=== PATIENT | female | born 1965 | race Caucasian/White ===

== ENCOUNTER → 2017-07-09 08:18 | Outpatient (CLI) | payer OTHER, SELFPAY ==
[2017-07-09] VITALS (8 sets, daily range): BP systolic 110–135; BP diastolic 53–83; PULSE 54–96; RESP 16–18; TEMP 36.2–36.8; O2SAT 91–100; BMI 35.5
[2017-07-09] MEDS: DiphenhydrAMINE 50 MG/ML Syringe IV (08:40)
[2017-07-09] MEDS: Hydrocortisone Sod Succinate 100 MG/2 ML Vial IV (08:42)
== END ==
PROVIDERS: Visit Provider Internal Medicine Rheumatology
DX: M33.90 Dermatopolymyositis, unspecified, organ involvement unspecified (principal)
CPT/HCPCS: 96365; 96366 ×5; 96375 ×2; J7040; A4216; J1568

== ENCOUNTER → 2017-07-28 10:31 | Outpatient (CLI) | payer OTHER, SELFPAY ==
[2017-07-28 11:16] LABS: Absolute Neutrophil Count 3.7 X10^3/uL (2.0-7.7); Basophil# 0.02 X10^3/uL; Basophil% 0.4 % (0-1); Eosinophil# 0.08 X10^3/uL; Eosinophils% 1.5 % (0-5); Hematocrit 41.8 % (37-47); Hemoglobin 14.1 g/dl (12.0-15.0); Lymphocyte % 23.7 % (19-41); Mean Corp Hgb Conc 33.7 g/gl (32-36); Mean Corpuscular Hgb 30.5 pg (27.0-32.0); Mean Corpuscular Volume 90.5 fL (81-99); Mean Platelet Vol. 8.7 fl (6.2-12.0); Monocyte# 0.41 X10^3/uL; Monocyte% 7.5 % (0-10); Neutrophil # 3.67 X10^3/uL (2.7-7.7); Neutrophil % 66.7 % (47-70); Platelet Count 235 K/mm3 (150-450); RBC Distribution Width CV 13.4 % (11.6-14.6); RBC Distribution Width SD 43.6 fl (35.1-43.9); Red Blood Count 4.62 M/mm3 (4.2-5.4); White Blood Count 5.5 K/mm3 (4.4-11.0)
[2017-07-28 11:18] LABS: POSITIVE COUNT NO; POSITIVE DIFFERENTIAL NO; POSITIVE MORPHOLOGY NO
[2017-07-28 11:48] LABS: ALB/GLOB Ratio 1.1 RATIO (0.9-2.4); AST(SGOT) 40 U/L (15-37); Alanine Aminotransfer ALT/SGPT 53 U/L (13-56); Albumin, Serum 4.1 g/dL (3.2-5.0); Alkaline Phosphatase 72 U/L (45-117); Anion Gap 8 (5-15); BUN 19 mg/dL (7-18); BUN/Creat Ratio 17.6 RATIO (10-20); CPK Total, Creatine Kinase 201 U/L (26-192); Calcium,Total 8.9 mg/dL (8.5-10.1); Chloride 102 mmol/L (98-107); Creatinine, Serum 1.08 mg/dL (0.55-1.02); EST Glomerular Filtration Rate 56 mL/min (>60); Est Glom Filt Rate - Afr Amer 68 mL/min (>60); Globulin 3.8 g/dL (2.2-4.2); Glucose 123 mg/dL (74-106); Potassium 4.3 mmol/L (3.5-5.1); Protein, Total 7.9 g/dL (6.4-8.2); Sodium Level 141 mmol/L (136-145)
[2017-07-30 09:15] LABS: Aldolase 5.7 U/L (3.3-10.3); Cancer Antigen 125 14.4 U/mL (0.0-38.1)
== END ==
PROVIDERS: Visit Provider Internal Medicine Rheumatology
DX: M33.92 Dermatopolymyositis, unspecified with myopathy (principal); Z79.899 Other long term (current) drug therapy; M18.11 Unilateral primary osteoarthritis of first carpometacarpal joint, right hand; L21.0 Seborrhea capitis; M50.30 Other cervical disc degeneration, unspecified cervical region; M51.37 Other intervertebral disc degeneration, lumbosacral region; I10 Essential (primary) hypertension
CPT/HCPCS: 36415; 80053; 82085; 82550; 85025; 86304

== ENCOUNTER 2017-09-15 09:00 | Outpatient (RCR) | payer OTHER, SELFPAY ==
--- NOTE | 2017-08-19 09:21 | HP.PTEVAL_ITS ---
Patient's Visit Information GABRIEL ZAMUDIO is a 51 year old F referred to Physical Therapy by Jeannine Castillo, with a diagnosis of HNP CERVICAL. Date of Evaluation: 08/19/17 Physical Therapist: Azar Oneil PT, - Visit Plan Frequency: 2x /Week Duration: 5WEEKS Plan: START ROM CERVICAL IN 3 WEEKS. OKAY WEAN SOFT CERVICAL COLLAR. CERVICAL ISOMTRICS ,POSTURAL EX'S,STRENGTHENING - Subjective Subjective: This 51 y/o female presents to physical therapy with HNP cervical with patient underwent s/p 07/31/17 cervical discectomy fusion with screws / plate done Dr Adames [facility] d/c 08/01/17.Surgery was anterio approah. Intially no driving ,10 # restriction ,start Cervical ROM in 3weeks, begin isomtrics.Prior to surgery trmarysol PT made it was ,epidural injections. Then had MRI showed HNP.Patient had radicular symptoms prior to surgery which has resolved after surgery . Patient has no parathesia/tingling. Currently, symptoms worse driving,sitting.Denies [employer] /tinnutus/dizziness/nausea. Patient surgery has affects ability to RTW ,ADL'S and housework tasks.RTW tenative . VOCATION: [facility] Cat[employer]. SOCAIL: - Pain Bilateral Neck Pain Intensity (Out of 10): 2 Pain Intensity Range: 10 - Objective POSTURE: mild foward head. SKIN: inscion well approximate anterior. NEURO: denies parathesia/tingling, reflexes C5-6-7 2/3. AROM: BUE WFL. MMT: BUE 4/5 except shoulder 4-/5. EQUINE DENTIST STRENGTH: Left 60# ,right 55# dynamator. CERVICAL ROM: flexion min/mod loss,lateral flexion ,rotation mod loss,extension mod loss - Special Tests C/S Radiculapathy - Left Upper limb tension test: Negative C/S Radiculapathy - Right Upper limb tension test: Negative - Goals Goal 1:: Independant with HEP. Goal Time Frame: 4-6 Weeks Goal 2:: Independant with posture for ADL'S Goal Time Frame: 4-6 Weeks Goal 3:: Decrease pain by 75% or greater with function with ADL'S and housework/ job denmands. Goal Time Frame: 4-6 Weeks Goal 4:: Patient improve lumbar ROM min/mod loss to improve function with ADL'S Goal Time Frame: 4-6 Weeks Goal 5:: Patient be able to return to ADL'S and job demnads/housework tasks with min limiations Goal Time Frame: 4-6 Weeks - Rehabilitation Potential Physical Therapy Diagnosis: This patient undewent s/p cervical fusion anterior C5-6 with decrease cervical ROM ,strength,impairs ablitity to RTW and ADL'S thus benifit from PT Rehabilitation Potential: Good - Anticipated Interventions Patient/Client Instruction: Educate patient on: Condition, Plan of Care For the Purpose of:: To decrease pain, To increase ROM, To increase oxygenation perfusion, To improve ability to perform ADL's, To increase tolerance to activity/condition/position, To improve ability of physical actions for home/ community/work/leisure, To improve health of tissue, To decrease soft tissue restriction, To increase flexibility/ROM, To assume or resume ADL's, To foster healthy habits, To improve ability to perform tasks related to life management Therapeutic Exercise to Include: Strength training, Postural training, Flexibilty training, Active ROM Comment: BUE,CERVICAL ROM For the Purpose of:: To decrease pain, To increase ROM, To improve muscle performance and motor function, To improve ability to perform ADL's, To increase tolerance to activity/condition/position, To improve ability of physical actions for home/community/work/leisure, To improve health of tissue, To decrease soft tissue restriction, To increase flexibility/ROM, To improve ability to perform tasks related to life management TENS: Yes IF ES: Yes Cryotherapy (ice pack, ice massage): Yes Thermo therapy (hot pack): Yes For the Purpose of:: To decrease pain, To increase ROM, To improve health of tissue, To decrease soft tissue restriction, To improve decision making Thank you for the opportunity to evaluate your patient. For Medicare and Medicare HMO plans, please review the plan of care and approve it. It will need to be FAXED BACK to us at [phone] for Medicare purposes. Please let me know if there are questions or concerns regarding this plan of care. Physician Signature: Date:
--- NOTE | 2017-12-18 07:21 | HP.PTDCSUM_ITS ---
HP - PT D/C Summary It has been my pleasure to treat GABRIEL ZAMUDIO under orders from Jeannine Castillo, , for the diagnosis of HNP CERVICAL for a total of 7 visit(s). Discharge Date: Please see the following information for a summary of their discharge status. - Subjective Subjective: Pt reports that she is experiencing some soreness today in her neck since she woke up this morning. Pt reports that she was busy doing housework over the weekend, she experienced fatigue and soreness in her neck afterwards. Plans to RTW full duty on 10/02/17. - Pain Bilateral Neck Pain Intensity (Out of 10): 2 - Objective Objective/Function: Slightly more limited tolerance to exercise program today due to increase in baseline soreness. Several exercises were regressed due to this. Her ROM is functional, extension is slightly painful. At end of session, pt reporting fatigue but no increase in pain. - Goals Goal 1:: Independant with HEP. Goal 2:: Independant with posture for ADL'S Goal 3:: Decrease pain by 75% or greater with function with ADL'S and housework/ job denmands. Goal 4:: Patient improve lumbar ROM min/mod loss to improve function with ADL'S Goal 5:: Patient be able to return to ADL'S and job demnads/housework tasks with min limiations - Plan Plan: cont with poc and work condition ex's - D/C Information If there are questions or concerns regarding this patient's physical therapy, please feel free to call me at [phone]. Thank you for the referral of this patient. Sincerely, Azar Oneil, PT,
== END 2017-09-15 19:00 | disposition home or self-care (01) ==
LOC: PT 09:00
PROVIDERS: Visit Provider Nurse Practitioner Acute Care
DX: Z98.1 Arthrodesis status (principal)
CPT/HCPCS: 97110; 97162

== ENCOUNTER → 2017-09-28 08:22 | Outpatient (CLI) | payer OTHER, SELFPAY ==
--- NOTE | 2017-09-28 08:22 | DT_ITS ---
This patient was seen during an EMR downtime September 21, 2017 - September 28, 2017. This patient may have a combination of paper and electronic documentation or all paper documentation. All documentation is viewable within the e-chart portion of [employer] for each patient visit.
[2017-09-28] MEDS: DiphenhydrAMINE 50 MG/ML Syringe IV (09:00)
[2017-09-28] MEDS: Hydrocortisone Sod Succinate 100 MG/2 ML Vial IV (09:08)
[2017-09-28] MEDS: Immune Globulin 20 gm Premixed Solution IV ×3 (09:45→13:50)
== END ==
PROVIDERS: Visit Provider Internal Medicine Rheumatology
DX: M33.90 Dermatopolymyositis, unspecified, organ involvement unspecified (principal)
CPT/HCPCS: 96365; 96366 ×5; 96375 ×2; J7030; J7040; A4216; J1568

== ENCOUNTER → 2017-10-20 07:01 | Outpatient (CLI) | payer OTHER, SELFPAY ==
[2017-10-20 07:56] LABS: Absolute Lymphocyte Count 1.63 X10^3/ul (0.83-4.51); Absolute Neutrophil Count 3.6 X10^3/uL (2.0-7.7); Basophil# 0.03 X10^3/uL; Basophil% 0.5 % (0-1); Eosinophil# 0.12 X10^3/uL; Eosinophils% 2.1 % (0-5); Hemoglobin 13.1 g/dl (12.0-15.0); Lymphocyte # 1.63 X10^3/ul (4.0); Lymphocyte % 28.9 % (19-41); Mean Corp Hgb Conc 33.6 g/gl (32-36); Mean Corpuscular Hgb 29.9 pg (27.0-32.0); Mean Platelet Vol. 8.6 fl (6.2-12.0); Monocyte# 0.31 X10^3/uL; Monocyte% 5.5 % (0-10); Neutrophil # 3.55 X10^3/uL (2.7-7.7); Platelet Count 233 K/mm3 (150-450); RBC Distribution Width SD 41.8 fl (35.1-43.9); Red Blood Count 4.38 M/mm3 (4.2-5.4); White Blood Count 5.6 K/mm3 (4.4-11.0)
[2017-10-20 07:58] LABS: POSITIVE COUNT NO; POSITIVE DIFFERENTIAL NO; POSITIVE MORPHOLOGY NO
[2017-10-20 08:35] LABS: AST(SGOT) 37 U/L (15-37); Alanine Aminotransfer ALT/SGPT 54 U/L (13-56); Albumin, Serum 3.8 g/dL (3.2-5.0); Alkaline Phosphatase 78 U/L (45-117); Anion Gap 9 (5-15); BUN 19 mg/dL (7-18); BUN/Creat Ratio 19.6 RATIO (10-20); CPK Total, Creatine Kinase 184 U/L (26-192); Calcium,Total 8.8 mg/dL (8.5-10.1); Chloride 102 mmol/L (98-107); Creatinine, Serum 0.97 mg/dL (0.55-1.02); EST Glomerular Filtration Rate 64 mL/min (>60); Est Glom Filt Rate - Afr Amer 77 mL/min (>60); Globulin 3.7 g/dL (2.2-4.2); Glucose 122 mg/dL (74-106); Potassium 3.5 mmol/L (3.5-5.1); Protein, Total 7.5 g/dL (6.4-8.2); Sodium Level 139 mmol/L (136-145)
[2017-10-23 13:13] LABS: Aldolase 4.4 U/L (3.3-10.3); Cancer Antigen 125 14.3 U/mL (0.0-38.1)
== END ==
PROVIDERS: Visit Provider Internal Medicine Rheumatology
DX: M33.92 Dermatopolymyositis, unspecified with myopathy (principal); M18.11 Unilateral primary osteoarthritis of first carpometacarpal joint, right hand; K21.0 Gastro-esophageal reflux disease with esophagitis; M50.30 Other cervical disc degeneration, unspecified cervical region; M51.37 Other intervertebral disc degeneration, lumbosacral region; I10 Essential (primary) hypertension; Z79.899 Other long term (current) drug therapy
CPT/HCPCS: 36415; 80053; 82085; 82550; 85025; 86304

== ENCOUNTER 2017-11-19 08:15 | Emergency (ER) | payer OTHER, SELFPAY ==
[2017-11-19 08:18] VITALS: BP 152/92; PULSE 94; RESP 16; TEMP 37.1; O2SAT 99; BMI 35.0
--- NOTE | 2017-11-19 08:35 | MRI_ITS ---
STUDY: MRI LEFT KNEE REASON FOR EXAM: Worsening lateral left knee pain for one month. TECHNIQUE: Standardized fat and water weighted pulse sequences were obtained in all 3 orthogonal planes. COMPARISON: None. FINDINGS: There is a small tear of the posterior horn root ligament of the medial meniscus (T2 coronal image 12). There is arthrosis of the medial femorotibial compartment with partial-thickness chondral loss of the medial femoral condyle (T2 sagittal image 9). Normal medial femoral condyle and tibial plateau. Normal medial collateral ligamentous complex (MCL). Normal distal semimembranosus, gracilis and semitendinosus tendons. Normal lateral meniscus. Normal hyaline cartilage of the lateral femorotibial compartment. Normal lateral femoral condyle and tibial plateau. Normal proximal tibiofibular articulation. Normal lateral collateral (fibular) ligament. Normal popliteus tendon. Normal biceps femoris tendon. Normal anterior cruciate ligament (ACL). Normal posterior cruciate ligament (PCL). Normal congruent patellofemoral articulation. There is intermediate grade chondromalacia patellae (T2 axial image 10). Normal medial and lateral patellar retinaculum. Normal visualized quadriceps tendon. Normal patellar tendon. Normal Hoffa's fat pad. There is a moderate-sized joint effusion. There is a mildly thickened medial patellar plica (T2 sagittal image 8; T2 axial image 11). There is mild edema in the anterior subcutis adipose space. There is a small cyst and mild bone edema in the proximal tibia near the insertion site of the posterior cruciate ligament. MRI/Lower Ext Joint Only (Routine) IMPRESSION: Small tear of the posterior horn root ligament of the medial meniscus. 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 Joint effusion. Mildly thickened medial patellar plica. Electronically Signed: Pineda Meyer MD at 10:24 EDT Tel , Service support ,
--- NOTE | 2017-11-19 10:55 | ED.VISSUMM ---
- ER Visit Summary Date of Service: 11/19/17 Chief Complaint: [Left knee pain] History of Present Illness: The patient is a 52 F [presents the emergency department complaint left knee pain for 4 weeks. Patient states that she had no significant fall or injury that she can recall other than she was making a bed at one point and felt a mild discomfort in her left lateral knee. Patient has not had any recent travel or surgery. Patient complains of pain when trying to stand from a seated position and at times the knee will pop and she will get some mild relief of the pain and the pain comes back. Patient denies any fevers.] Physical Examination: [HEENT-PERRLA, EOMI. Cranial nerves II through XII grossly intact. TMs clear. Mucous membranes moist. No adenopathy. Cardiovascular-regular rate and rhythm without murmur or ectopy Lungs-clear to auscultation, chest wall stable without crepitus or subcu emphysema Abdomen-normoactive bowel sounds, soft, nontender, no rebound or rigidity, no peritoneal signs. Extremities-intact ?4, normal range of motion, normal pulses, atraumatic]. Left knee-small effusion noted on exam. Patient has pain with flexion of the knee however I do not appreciate any popping or clicking. Ligamentously stable. She has pain with varus and valgus stressing. Neurovascular intact distally. Test Results: [MRI of the left knee obtained was read by radiology as moderate joint effusion and a small tear posterior horn root ligament medial meniscus also mildly thickened medial patellar plica] Emergency Department Course and Treatment: [Case was discussed with nurse practitioner covering for Dr. alisa Stahl as patient has an appointment to see Dr. alisa baker in 2 weeks and we were told that they will call her and attempt to get her in sooner as patient is having a hard time ambulating and working. They recommended minimizing putting weight on that leg.] Treatment Plan: [Patient will be placed in a knee immobilizer. Patient has Percocet at home for pain. Patient to follow-up with orthopedics.] Disposition: [Discharged home in stable condition] Impression: [Left knee sprain Medial meniscus tear Knee joint effusion] This note was generated with [employer] software. It may contain incorrect words, spelling, and punctuation that were not noted in review of the chart prior to signing ED Disposition - Plan for ED Patient: Chief Complaint: Lower Extremity Injury Referrals: Willi Appiah [Primary Care Provider] -
--- NOTE | 2017-11-19 10:58 | ED.DEP ---
ED Disposition - Plan for ED Patient: Chief Complaint: Lower Extremity Injury Instructions: ED Meniscal Injury Knee Poss Referrals: Willi Appiah [Primary Care Provider] - Kristen Bhardwaj DO [STAFF PHYSICIAN] - As soon as possible
== END 2017-11-19 11:23 | disposition home or self-care (01) ==
PROVIDERS: Emergency Provider Emergency Medicine
DX: S83.242A Other tear of medial meniscus, current injury, left knee, initial encounter (principal); X58.XXXA Exposure to other specified factors, initial encounter; Y93.9 Activity, unspecified; Y92.9 Unspecified place or not applicable; Z86.73 Personal history of transient ischemic attack (TIA), and cerebral infarction without residual deficits; Z79.899 Other long term (current) drug therapy
CPT/HCPCS: 73721; 99283

== ENCOUNTER 2017-11-23 10:58 | Observation (INO) | payer OTHER, SELFPAY ==
[2017-11-23 11:00] VITALS: BP 156/80; PULSE 114; RESP 22; TEMP 36.4; O2SAT 17; BMI 34.7
[2017-11-23] MEDS: Morphine 4 MG/ML Syringe SC (12:04)
--- NOTE | 2017-11-23 12:50 | NURSING ---
LOCALIZED REDDNESS AND ITCHING AT INJECTION SITE. NO OTHER SX. REPORTS ITCHING IS TOLERABLE DENIES NEEDS AT THIS TIME.
--- NOTE | 2017-11-23 13:02 | ED.DCSUM_ITS ---
- ER Visit Summary Date of Service: 11/23/17 Chief Complaint: Left knee pain History of Present Illness: The patient is a 52 F who presents with left knee pain. She states that it started today when she was walking down a ramp and twisted her knee. She was recently diagnosed with a meniscal tear and had 30 cc of fluid taken off the knee's morning. She had a cortisone injection into that knee. She felt a pop while she was walking. She was on Percocet and Advil. She was wearing a knee brace and was using a cane to help her walk. Physical Examination: Vital signs reviewed. Left knee exam reveals tenderness to palpation posteriorly. The extensor mechanism is intact. She has 2+ distal pulses. Sensation is intact. There is no effusion Test Results: None performed Emergency Department Course and Treatment: Subcutaneous morphine. I discussed this with Christiano Lord, who performed her procedure today. He recommended pain control and have her following up in the office. Patient was concerned about walking. I informed her that she may need to use crutches or a wheelchair. She states that she cannot use crutches because of proximal weakness due to dermatomyositis. She has Percocet at home that she will take Treatment Plan: [] Disposition: Discharge Impression: Left knee pain, recent meniscal tear This note was generated with [employer] dictation software. It may contain incorrect words, spelling, and punctuation that were not noted in review of the chart prior to signing ED Disposition - Plan for ED Patient: Chief Complaint: Lower Extremity Injury Referrals: Willi Appiah [Primary Care Provider] -
--- NOTE | 2017-11-23 13:02 | ED.DEP ---
ED Disposition - Plan for ED Patient: Disposition: Home or Assisted Living Chief Complaint: Lower Extremity Injury Instructions: ED Knee Pain [facility] Referrals: Willi Appiah [Primary Care Provider] -
--- NOTE | 2017-11-23 13:35 | ED.RN ---
DISCUSSED WITH DR MADRIGAL AND THEN WITH PT. PAIN MANAGEMENT AND DISCHARGE PLAN. PT IS TO F/U WITH ORTHOPEDIC DR. PT REPORTS UNABLE TO USE CRUTCHES, HAS BEEN USING CANE. TO BRING CAN SO THAT WE CAN TEST WALK BEFORE DISCHARGE. PT HAS NO PAIN AT REST. WC MAY BE AN OPTION FOR PAIN MANAGMENT UNTIL F/U
--- NOTE | 2017-11-23 14:12 | RAD_ITS ---
STUDY: X-RAY - LEFT KNEE REASON FOR EXAM: Unable to bear weight after feeling a pop today, fluid removed. TECHNIQUE: 4 view(s) of the knee. COMPARISON: None. FINDINGS: Normal visualized distal femur. Normal visualized proximal tibia and fibula. Normal proximal tibiofibular articulation. There is mild joint space narrowing of the medial femorotibial compartment. Normal lateral femorotibial compartment. Normal patellofemoral articulation. There are pockets of gas in the suprapatellar recess from aspiration earlier today. There are soft tissue calcifications at the posterior aspect of the knee. RAD/Knee 4 or More Views IMPRESSION: Mild arthrosis of the medial femorotibial compartment. Soft tissue calcifications. Gas in the suprapatellar recess from aspiration earlier today. Electronically Signed: Pineda Meyer MD at 15:34 EDT Tel , Service support ,
--- NOTE | 2017-11-23 15:30 | ED.RN ---
PT UNABLE TO STAND OR BEAR WT ON LEFT LEG. ATTEMPTED TO STAND AND WALK PT LEG GAVE WAY AND PT ALMOST FELL DUE TO THE PAIN. DR MADRIGAL AWARE. PT TO COME EVALUATE AND TROUBLESHOOT MOBILITY OPTIONS.
[2017-11-23] MEDS: HYDROmorphone 0.5 MG/0.5 ML SYRINGE SC (15:41)
--- NOTE | 2017-11-23 16:11 | ED.RN ---
PT USING WALKER TO AMBULATE WITH PHYSICAL THERAPY IN [place].
--- NOTE | 2017-11-23 16:57 | CM.ED ---
Case management consulted for discharge planning. Patient lives in a mobile home with stairs into home. CM was informed patient has difficulty standing and is having extreme difficulty ambulating. PT consulted for recommendations. Discussed recommendations with care team. Plan is for patient to be assigned to observation status and begin precertification process for SNF. Patient would like to consider SNF preferences overnight. Social work with follow for effective discharge planning.
[2017-11-23 17:09] VITALS: BP 144/88; PULSE 97; RESP 18; O2SAT 97
--- NOTE | 2017-11-23 17:13 | PCM.HP.STD ---
Problem List (1) Left knee pain Status: Acute Qualifiers: Chronicity: acute Qualified Code(s): M25.562 - Pain in left knee History of Present Illness Date of Admission: 11/23/17 Chief Complaint: left knee pain. The patient is a 52 year old F who earlier sustained a left meniscal tear. Subtle orthopedic nurse practitioner who did the injection today and patient noted that she was feeling well and then later heard a pop and then suddenly had very severe left knee pain. Patient is unable to put any weight on that leg since that pop and was not able to use crutches nor a walker given her known dermatomyositis and weakness associated with that. Patient is being brought in status for further therapy needs and precertification and additional imaging. Patient was seen by physical therapy in the emergency room who felt the patient would benefit from skilled therapy upon discharge. Case management was unable to facilitate a discharge to a halfway facility directly from the emergency room. [] Past Medical History Past Medical History (Chronic Problems): Chronic Problems Dermatomyositis (Chronic) Hypertension (Chronic) History of stroke (Chronic) Allergies vancomycin Adverse Reaction (Intermediate, Verified 11/23/17 11:03) [employer] Home Medications: Ambulatory Orders Medication Instructions Recorded Folic Acid 2 mg PO QHS 03/21/13 Methotrexate 20 mg PO QWEEK 03/21/13 Valsartan/Hydrochlorothiazide 1 tablet PO QHS 03/21/13 [Diovan Hct 320-12.5 MG Tab] traZODone [Desyrel] 50 mg PO QHS 03/21/13 Esomeprazole Mag Trihydrate 40 mg PO PRN PRN 08/22/14 [Nexium] leucovorin tablet 25 mg PO QWEEK 10/24/14 Krill Oil/[place]-3/Dha/Epa [Fish 1 each PO DAILY 06/19/15 Oil with Krill Softgel] Oxycodone HCl/Acetaminophen 1 tablet PO Q4H PRN PRN 05/01/16 [Percocet 5-325] predniSONE tablet 20 mg PO PRN PRN 08/21/16 Amlodipine [Norvasc] 5 mg PO DAILY 04/09/17 Clonidine HCl [Catapres] 0.2 mg PO DAILY PRN 04/09/17 Escitalopram Oxalate [Lexapro] 5 mg PO DAILY 11/19/17 Kenalog 40 mg/mL suspension for 40 mg INTRAARTIC ONCE #1 NS 11/23/17 injection Surgical History: cholecystectomy, tonsillectomy Psychiatric History: No pertinent psych hx [employer]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 Smoking Status: Never smoker - *Family History Maternal History Items: - - Graves' disease Paternal History Items: No pertinent history Review of Systems Constitutional: Denies: Anorexia, Chills, Fever Eyes: Denies: Blurred vision, Double vision HEENT: Denies: Head Aches, Sinus Congestion, Sinus Drainage Cardiovascular: Denies: Chest Pain, Palpitations Respiratory: Denies: Cough, Shortness of breath at rest, Sputum production Gastrointestinal: Denies: Abdominal Pain, Nausea, Vomiting Genitourinary: Denies: Dysuria Musculoskeletal: Reports: - - Left knee pain and swelling Skin: Denies: Rash, Wounds Neurological: Denies: Numbness, Tingling, Focal weakness Hematologic/ Lymphatic: Denies: Easy Bruising, Easy Bleeding, Hx of blood clot Comment: All review of systems are negative except as mentioned in the history of present illness and the other review of systems. VTE Information - Inpt Only VTE Present on Admission: No VTE Mechan Device Prophylaxis: None VTE Pharm Prophylaxis ordered?: Yes Patient Problems: Active and Suspected Problems Left knee pain (Acute) - Physical Exam General: Alert, Cooperative, No apparent distress HEENT: Atraumatic, Normocephalic Oral: Moist Mucosa, No Gingival or Mucosal Lesions/ Ulcerations Neck: No Nodes, Thyroid Normal Size and Texture Lungs: Clear to auscultation, Normal air movement, No rhonchi, No wheeze Cardiovascular: Regular rate, Regular Rhythm, Normal S1, Normal S2, No murmurs Abdomen: Bowel Sounds Present, Soft, Non Tender, Non-Distended, No Hepato-splenomegaly Extremities: No clubbing, No cyanosis, No Calf Tenderness, Peripheral Pulses Normal Skin: No rashes, No breakdown Musculoskeletal: - - Left knee effusion with posterior knee tenderness. No warmth of the left knee. No woody induration of the distal lower extremity. Neurological: Sensory exam intact to light touch and pain, Coordination normal Psych/Mental Status: Normal Affect, Appropriate Vital Signs Temp Pulse Resp BP Pulse Ox 36.4 C L 97 18 144/88 H 97 11/23/17 11:00 11/23/17 17:09 11/23/17 17:09 11/23/17 17:09 11/23/17 17:09 Oxygen Delivery Method Room Air Weight: 97.522 kg Body Mass Index (BMI) 34.7 Assessment/Plan All Active Problems Left knee pain (Acute) Hypertensive urgency (Acute) 1. Left knee pain Patient had a prior known meniscal tear but was doing okay even after an injection but then heard a pop. Unclear what this may be if it is a ligament tear or possible Goff's cyst. Patient will be admitted for further symptom control but also additional imaging. Patient will undergo another MRI of her knee given the new symptoms Physical therapy and outpatient therapy will be consulted Case management to assist in regards to assistance in regards to disposition to a halfway facility. Patient will will be awaiting on precertification for halfway facility. Patient is aware that there could be a denial from the insurance company for her to go to a halfway facility. Was going to consult orthopedics as patient was seen in Dr. Bhardwaj's office today. She informed me that she does need not do consults on Mondays. Will defer to the [facility] hospitalist to see if that would still need to be performed on Thursday or not. I do not feel it is necessary to bring any other orthopedic group at this time as I do not feel that there is any acute surgical needs at this point time. 2. DVT prophylaxis with Lovenox Code Visit Inpatient E&M: [id number] Init Hosp L3
--- NOTE | 2017-11-23 17:15 | NURSING ---
314 OBS LT KNEE PAIN AARTI
--- NOTE | 2017-11-23 17:19 | HP.PCM_ITS ---
Problem List (1) Left knee pain Status: Acute Qualifiers: Chronicity: acute Qualified Code(s): M25.562 - Pain in left knee History of Present Illness Date of Admission: 11/23/17 Chief Complaint: left knee pain. The patient is a 52 year old F who earlier sustained a left meniscal tear. Subtle orthopedic nurse practitioner who did the injection today and patient noted that she was feeling well and then later heard a pop and then suddenly had very severe left knee pain. Patient is unable to put any weight on that leg since that pop and was not able to use crutches nor a walker given her known dermatomyositis and weakness associated with that. Patient is being brought in status for further therapy needs and precertification and additional imaging. Patient was seen by physical therapy in the emergency room who felt the patient would benefit from skilled therapy upon discharge. Case management was unable to facilitate a discharge to a [facility]ci facility directly from the emergency room. [] Past Medical History Past Medical History (Chronic Problems): Chronic Problems Dermatomyositis (Chronic) Hypertension (Chronic) History of stroke (Chronic) Allergies vancomycin Adverse Reaction (Intermediate, Verified 11/23/17 11:03) [employer]'S SYNDROME Home Medications: Ambulatory Orders Medication Instructions Recorded Folic Acid 2 mg PO QHS 03/21/13 Methotrexate 20 mg PO QWEEK 03/21/13 Valsartan/Hydrochlorothiazide 1 tablet PO QHS 03/21/13 [Diovan Hct 320-12.5 MG Tab] traZODone [Desyrel] 50 mg PO QHS 03/21/13 Esomeprazole Mag Trihydrate 40 mg PO PRN PRN 08/22/14 [Nexium] leucovorin tablet 25 mg PO QWEEK 10/24/14 Krill Oil/[place]-3/Dha/Epa [Fish 1 each PO DAILY 06/19/15 Oil with Krill Softgel] Oxycodone HCl/Acetaminophen 1 tablet PO Q4H PRN PRN 05/01/16 [Percocet 5-325] predniSONE tablet 20 mg PO PRN PRN 08/21/16 Amlodipine [Norvasc] 5 mg PO DAILY 04/09/17 Clonidine HCl [Catapres] 0.2 mg PO DAILY PRN 04/09/17 Escitalopram Oxalate [Lexapro] 5 mg PO DAILY 11/19/17 Kenalog 40 mg/mL suspension for 40 mg INTRAARTIC ONCE #1 NS 11/23/17 injection Surgical History: cholecystectomy, tonsillectomy Psychiatric History: No pertinent psych hx 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 Smoking Status: Never smoker - *Family History Maternal History Items: - - Graves' disease Paternal History Items: No pertinent history Review of Systems Constitutional: Denies: Anorexia, Chills, Fever Eyes: Denies: Blurred vision, Double vision HEENT: Denies: Head Aches, Sinus Congestion, Sinus Drainage Cardiovascular: Denies: Chest Pain, Palpitations Respiratory: Denies: Cough, Shortness of breath at rest, Sputum production Gastrointestinal: Denies: Abdominal Pain, Nausea, Vomiting Genitourinary: Denies: Dysuria Musculoskeletal: Reports: - - Left knee pain and swelling Skin: Denies: Rash, Wounds Neurological: Denies: Numbness, Tingling, Focal weakness Hematologic/ Lymphatic: Denies: Easy Bruising, Easy Bleeding, Hx of blood clot Comment: All review of systems are negative except as mentioned in the history of present illness and the other review of systems. VTE Information - Inpt Only VTE Present on Admission: No VTE Mechan Device Prophylaxis: None VTE Pharm Prophylaxis ordered?: Yes Patient Problems: Active and Suspected Problems Left knee pain (Acute) - Physical Exam General: Alert, Cooperative, No apparent distress HEENT: Atraumatic, Normocephalic Oral: Moist Mucosa, No Gingival or Mucosal Lesions/ Ulcerations Neck: No Nodes, Thyroid Normal Size and Texture Lungs: Clear to auscultation, Normal air movement, No rhonchi, No wheeze Cardiovascular: Regular rate, Regular Rhythm, Normal S1, Normal S2, No murmurs Abdomen: Bowel Sounds Present, Soft, Non Tender, Non-Distended, No Hepato- splenomegaly Extremities: No clubbing, No cyanosis, No Calf Tenderness, Peripheral Pulses Normal Skin: No rashes, No breakdown Musculoskeletal: - - Left knee effusion with posterior knee tenderness. No warmth of the left knee. No woody induration of the distal lower extremity. Neurological: Sensory exam intact to light touch and pain, Coordination normal Psych/Mental Status: Normal Affect, Appropriate Vital Signs Temp Pulse Resp BP Pulse Ox 36.4 C L 97 18 144/88 H 97 11/23/17 11:00 11/23/17 17:09 11/23/17 17:09 11/23/17 17:09 11/23/17 17:09 Oxygen Delivery Method Room Air Weight: 97.522 kg Body Mass Index (BMI) 34.7 Assessment/Plan All Active Problems Left knee pain (Acute) Hypertensive urgency (Acute) 1. Left knee pain * Patient had a prior known meniscal tear but was doing okay even after an injection but then heard a pop. Unclear what this may be if it is a ligament tear or possible Goff's cyst. * Patient will be admitted for further symptom control but also additional imaging. Patient will undergo another MRI of her knee given the new symptoms * Physical therapy and outpatient therapy will be consulted * Case management to assist in regards to assistance in regards to disposition to a fci facility. Patient will will be awaiting on precertification for fci facility. Patient is aware that there could be a denial from the insurance company for her to go to a fci facility. * Was going to consult orthopedics as patient was seen in Dr. Bhardwaj's office today. She informed me that she does need not do consults on Mondays. Will defer to the [facility] hospitalist to see if that would still need to be performed on Thursday or not. I do not feel it is necessary to bring any other orthopedic group at this time as I do not feel that there is any acute surgical needs at this point time. 2. DVT prophylaxis with Lovenox Code Visit Inpatient E&M: 19300 Init Hosp L3
--- NOTE | 2017-11-23 17:54 | MRI_ITS ---
STUDY: MRI LEFT KNEE REASON FOR EXAM: Female, 52 years old. Re-injury. Pain TECHNIQUE: Standardized fat and water weighted pulse sequences were obtained in all 3 orthogonal planes. COMPARISON: November 19, 2017 MRI. November 23, 2017 x-ray FINDINGS: There is partial tear of the posterior horn of the medial meniscus adjacent to the meniscal root ligament, series 8 images 04/18 and . There is focal, less than 50% thickness articular cartilage loss of the medial femorotibial compartment. There is mild osteoarthritic spur formation of the medial knee compartment. Normal medial collateral ligamentous complex (MCL). Normal distal semimembranosus, gracilis and semitendinosus tendons. Normal lateral meniscus. Normal hyaline cartilage of the lateral femorotibial compartment. Normal lateral femoral condyle and tibial plateau. Normal proximal tibiofibular articulation. Normal lateral collateral (fibular) ligament. Normal popliteus tendon. Normal biceps femoris tendon. Normal anterior cruciate ligament (ACL). Normal posterior cruciate ligament (PCL). There is arthrosis of the patellofemoral articulation. There is diffuse, greater than 50% thickness articular cartilage loss of the patellofemoral compartment. Normal medial and lateral patellar retinaculum. Normal quadriceps tendon. Normal patellar tendon. Normal Hoffa's fat pad. There is a moderate volume joint effusion, mildly improved. There are small foci of diminished signal within the effusion consistent with air associated with recent injection. There is suprapatellar plica. The soft tissues are unremarkable. The otherwise visualized osseous structures are unremarkable. MRI/Lower Ext Joint Only (Routine) IMPRESSION: Stable medial meniscus tear. Degenerative change. Joint effusion with suprapatellar plica and air in the joint space consistent with recent injection. Electronically Signed: Demarcus Martinez MD at 22:31 EDT , Service support ,
[2017-11-23 18:00] VITALS: BMI 34.6
[2017-11-23 18:09] VITALS: BMI 34.6
[2017-11-23 18:34] VITALS: BP 144/97; PULSE 89; RESP 16; TEMP 37.4; O2SAT 96
[2017-11-23] MEDS: oxyCODONE 5 MG Tablet PO (20:23)
[2017-11-23 22:12] VITALS: BP 125/78; PULSE 81; RESP 16; TEMP 37.2; O2SAT 99
[2017-11-23] MEDS: 0.9% NaCl Peripheral Flush Adult/Peds IV (22:15)
[2017-11-23] MEDS: HYDROCHLOROTHIAZIDE 12.5 MG CAPSULE PO (22:15)
[2017-11-23] MEDS: Folic Acid 1 MG Tablet 2 MG PO (22:15)
[2017-11-23] MEDS: traZODone 50 MG Tablet PO (22:15)
[2017-11-23] MEDS: Morphine 4 MG/ML Syringe IV (22:16)
[2017-11-24 03:19] VITALS: BP 127/76; PULSE 77; RESP 16; TEMP 36.8; O2SAT 99
[2017-11-24] MEDS: 0.9% NaCl Peripheral Flush Adult/Peds IV (03:21)
[2017-11-24] MEDS: Morphine 4 MG/ML Syringe IV (03:21)
[2017-11-24 09:00] VITALS: BP 120/72; PULSE 74; RESP 18; TEMP 36.7; O2SAT 98
--- NOTE | 2017-11-24 09:07 | PCA ---
therapy working with pt
--- NOTE | 2017-11-24 09:52 | CASEMGMT ---
Social Work Note SW met with pt to confirm discharge plans. Per PT notes, pt was able to ambulate 200ft today and per OT pt was able to ambulate 100ft. Pt states that she feels she is doing well and feels safe discharging home. Pt denied SNF, HHC, additional DME, and outpatient therapy at this time. DME include cane and walker. Pt states that she has an appointment with Dr. Bhardwaj on . SW informed pt that if she feels like she will need outpatient therapy after she discharges from [facility] she can have Dr. Bhardwaj set up outpatient therapy for pt. Pt states understanding. Pt denied additional needs or concerns at this time. SW encouraged pt that if any additional needs or concerns arise to let staff know and this worker can come back to talk to her. Pt states understanding. Plan: Pt to discharge home. Pt denied SNF, HHC, additional DME, or outpatient therapy at this time Dianna Elizabeth CORK PRESSING MACHINE OPERATOR, EVALUATION MANAGER
[2017-11-24] MEDS: oxyCODONE 5 MG Tablet PO (10:08)
[2017-11-24] MEDS: Escitalopram Oxalate 10 MG Tablet 5 MG PO (10:10)
[2017-11-24] MEDS: Enoxaparin 40 MG/0.4 ML Syringe SC (10:11)
[2017-11-24] MEDS: amLODIPine 5 MG Tablet PO (10:11)
--- NOTE | 2017-11-24 12:17 | PCM.PN.ORT ---
Patient Problems: Active and Suspected Problems Left knee pain (Acute) Subjective: Patient seen and examined in bed. States up with PT and able to navigate stairs so may be going home. felt pop and increased pain posterior knee yesterday after leaving office and being seen by my PA who aspirated 30cc and injected with steroids. pateint states she felt great upon leaving office until she 'stepped wrong and felt increased pain posterior knee. less pain today in knee, mostly c/o pain lateral joint line/ fibula prox. - Physical Exam General: Alert, Oriented x3, Cooperative HEENT: Atraumatic, PERRLA, EOMI, Normocephalic Neck: Supple, No JVD, Negative Carotid Bruits Lungs: Clear to auscultation, Normal air movement Cardiovascular: Regular rate, No murmurs Abdomen: Bowel Sounds Present, Soft, Non Tender Extremities: No edema, Capillary Refill Less than 3 Seconds Skin: No rashes, No breakdown Musculoskeletal: Tenderness - ttp lateral joint line, unable to flex beyond 60 degrees without pain, <2scr compts soft, sgi, neg homans sign, compts soft, arom/prom ankle intact Neurological: Cranial nerves II-XII grossly intact Psych/Mental Status: Normal Affect, Appropriate Vital Signs Temp Pulse Resp BP Pulse Ox 98.0 F 74 18 120/72 98 11/24/17 09:00 11/24/17 09:00 11/24/17 09:00 11/24/17 09:00 11/24/17 09:00 Oxygen Delivery Method Room Air Weight: 214 lb 6.4 oz Body Mass Index (BMI) 34.6 Intake and Output for Last 24 Hours 11/22/17 11/23/17 11/24/17 23:59 23:59 23:59 Intake Total 300 / 300 Output Total 1100 / 1100 Balance -800 / -800 Medical Necessity - Tobacco Use Smoking Status: Never smoker Assessment/Plan All Active Problems Left knee pain (Acute) Hypertensive urgency (Acute) left knee lateral joint line pain o/k for d/c will see in office on and perform a diagnostic in office arthroscopic eval to see if MRI is missing something surgical wbat with hinged knee brace, remove brace and attempt rom/ exercises as tolerated patient worried about losing her job d/t injury and fmla requirements so would like this fixed if has to be done sooner than later. will reeva patient on in office Follow up or sooner if pain, swelling, numbness or associated symptoms, or concerns develop. All questions answered. Patient in agreement of plan.
--- NOTE | 2017-11-24 12:22 | PN.ORTHO_ITS ---
Patient Problems: Active and Suspected Problems Left knee pain (Acute) Subjective: Patient seen and examined in bed. States up with PT and able to navigate stairs so may be going home. felt pop and increased pain posterior knee yesterday after leaving office and being seen by my PA who aspirated 30cc and injected with steroids. pateint states she felt great upon leaving office until she ' stepped wrong and felt increased pain posterior knee. less pain today in knee, mostly c/o pain lateral joint line/ fibula prox. - Physical Exam General: Alert, Oriented x3, Cooperative HEENT: Atraumatic, PERRLA, EOMI, Normocephalic Neck: Supple, No JVD, Negative Carotid Bruits Lungs: Clear to auscultation, Normal air movement Cardiovascular: Regular rate, No murmurs Abdomen: Bowel Sounds Present, Soft, Non Tender Extremities: No edema, Capillary Refill Less than 3 Seconds Skin: No rashes, No breakdown Musculoskeletal: Tenderness - ttp lateral joint line, unable to flex beyond 60 degrees without pain, <2scr compts soft, sgi, neg homans sign, compts soft, arom /prom ankle intact Neurological: Cranial nerves II-XII grossly intact Psych/Mental Status: Normal Affect, Appropriate Vital Signs Temp Pulse Resp BP Pulse Ox 98.0 F 74 18 120/72 98 11/24/17 09:00 11/24/17 09:00 11/24/17 09:00 11/24/17 09:00 11/24/17 09:00 Oxygen Delivery Method Room Air Weight: 214 lb 6.4 oz Body Mass Index (BMI) 34.6 Intake and Output for Last 24 Hours 11/22/17 11/23/17 11/24/17 23:59 23:59 23:59 Intake Total 300 / 300 Output Total 1100 / 1100 Balance -800 / -800 Medical Necessity - Tobacco Use Smoking Status: Never smoker Assessment/Plan All Active Problems Left knee pain (Acute) Hypertensive urgency (Acute) left knee lateral joint line pain o/k for d/c will see in office on and perform a diagnostic in office arthroscopic eval to see if MRI is missing something surgical wbat with hinged knee brace, remove brace and attempt rom/ exercises as tolerated patient worried about losing her job d/t injury and fmla requirements so would like this fixed if has to be done sooner than later. will reeva patient on in office Follow up or sooner if pain, swelling, numbness or associated symptoms, or concerns develop. All questions answered. Patient in agreement of plan.
--- NOTE | 2017-11-24 13:07 | PCM.DC ---
- Discharge Diagnoses Current Active Problems: Current Active and Chronic Problems Left knee pain (Acute) You will use the following diet at home:: Cardiac Your food should be the consistency of: Regular Your liquids should be the consistency of: Regular/Thin Discharge Activity: Use Walker Weight Bearing Status: Weight bearing as tolerated Call your doctor if you observe: Uncontrolled pain Instructions: ED Knee Pain UKO Additional Instructions: to have outpatient physical therapy 3x weekly Allergies/Adverse Reactions: Allergies vancomycin Allergy (Intermediate, Verified 11/23/17 17:59) [employer] MAN'S SYNDROME Medications to take at Discharge Folic Acid 2 mg PO QHS 03/21/13 Methotrexate 15 mg PO SA 03/21/13 Valsartan/Hydrochlorothiazide [Diovan Hct 320-12.5 MG Tab] 1 tablet PO QHS 03/21/13 traZODone [Desyrel] 50 mg PO QHS 03/21/13 leucovorin tablet 25 mg PO MCKEON 10/24/14 Oxycodone HCl/Acetaminophen [Percocet 5-325] 1 tablet PO Q4H PRN PRN 05/01/16 predniSONE tablet 20 mg PO PRN PRN 08/21/16 Amlodipine [Norvasc] 5 mg PO QHS 04/09/17 Clonidine HCl [Catapres] 0.2 mg PO DAILY PRN 04/09/17 Escitalopram Oxalate [Lexapro] 5 mg PO QHS 11/19/17 Ivig 60 gm IV X1 11/23/17 Omeprazole 40 mg PO DAILY PRN 11/23/17 Primary Care Physician: Willi Appiah [Primary Care Provider] - Please follow up with your Primary Care Physician in: one week Test Results: Test results from this visit will be discussed in further detail at your follow-up appointment, if applicable. Please Follow Up With: Kristen Bhardwaj DO When: in 2 days Proposed Discharge Date: 11/24/17
--- NOTE | 2017-11-24 13:10 | DCINST_ITS ---
- Discharge Diagnoses Current Active Problems: Current Active and Chronic Problems Left knee pain (Acute) You will use the following diet at home:: Cardiac Your food should be the consistency of: Regular Your liquids should be the consistency of: Regular/Thin Discharge Activity: Use Walker Weight Bearing Status: Weight bearing as tolerated Call your doctor if you observe: Uncontrolled pain Instructions: ED Knee Pain UKO Additional Instructions: to have outpatient physical therapy 3x weekly Allergies/Adverse Reactions: Allergies vancomycin Allergy (Intermediate, Verified 11/23/17 17:59) [employer]'S SYNDROME Medications to take at Discharge Folic Acid 2 mg PO QHS 03/21/13 Methotrexate 15 mg PO SA 03/21/13 Valsartan/Hydrochlorothiazide [Diovan Hct 320-12.5 MG Tab] 1 tablet PO QHS 03/21 traZODone [Desyrel] 50 mg PO QHS 03/21/13 leucovorin tablet 25 mg PO MCKEON 10/24/14 Oxycodone HCl/Acetaminophen [Percocet 5-325] 1 tablet PO Q4H PRN PRN 05/01/16 predniSONE tablet 20 mg PO PRN PRN 08/21/16 Amlodipine [Norvasc] 5 mg PO QHS 04/09/17 Clonidine HCl [Catapres] 0.2 mg PO DAILY PRN 04/09/17 Escitalopram Oxalate [Lexapro] 5 mg PO QHS 11/19/17 Ivig 60 gm IV X1 11/23/17 Omeprazole 40 mg PO DAILY PRN 11/23/17 Primary Care Physician: Willi Appiah [Primary Care Provider] - Please follow up with your Primary Care Physician in: one week Test Results: Test results from this visit will be discussed in further detail at your follow- up appointment, if applicable. Please Follow Up With: Kristen Bhardwaj DO When: in 2 days Proposed Discharge Date: 11/24/17
--- NOTE | 2017-11-24 13:10 | PCM.DC.SUM ---
Discharge Date and Diagnosis - Problem List Patient Problems: Active and Suspected Problems Left knee pain (Acute) Date of Admission: 11/23/17 Date of Discharge: 11/24/17 - Primary Discharge Diagnosis Active and Suspected Problems Left knee pain (Acute) - Secondary Discharge Diagnosis Chronic Problems Dermatomyositis (Chronic) Hypertension (Chronic) History of stroke (Chronic) Hospital Course and Treatment Imaging Results: Diagnostic Data Knee X-Ray 11/23/17 14:12 IMPRESSION: Mild arthrosis of the medial femorotibial compartment. Soft tissue calcifications. Gas in the suprapatellar recess from aspiration earlier today. Electronically Signed: Pineda Meyer MD at 15:34 EDT Tel , Service support , Lower Extremity MRI 11/23/17 17:54 IMPRESSION: Stable medial meniscus tear. Degenerative change. Joint effusion with suprapatellar plica and air in the joint space consistent with recent injection. Electronically Signed: Demarcus Martinez MD at 22:31 EDT , Service support , orthopedic surgery-Dr Bhardwaj Operations: None Procedures: None Summary of Care Provided: The patient is a 52 year old F with past medical history of dermatomyositis, CVA and hypertension. She was admitted by the ED on 11/23/2017 with a complaint of left knee pain and swelling. She had at least sustained a left meniscal tear and was seen by the orthopedic nurse practitioner and Dr. Casper correlates office early on the day of presentation. She had an aspiration done and a subsequent steroid injection and felt better. She was able to ambulate and whilst ambulating she suddenly had severe left knee pain and had a sudden pop. She was not able to ambulate or weight-bear was unable to use crutches or a walker because of her dermatomyositis with associated weakness. She was therefore admitted for further imaging. MRI of the knee showed a moderateve volume effusion and a stable medial meniscal tear. She was reviewed by orthopedic surgeon Dr. Davis during admission and plan is to discharge her home today to follow-up with Dr. Naidu in 2 days time. An outpatient diagnostic arthroscopy will be done in the office. Patient states she has Percocet left over at home from her recent neck surgery and so that she does not need pain meds. Patient seen and examined prior to discharge. She still complained of knee pain but had been able to ambulate with physical therapy want her to have to walk up and down the stairs to minimize the pain. She denied any fever or chills, cough or shortness of breath, chest pain, abdominal pain, diarrhea vomiting. Review of systems otherwise negative. o/e: [] Vital Signs Height 5 ft 6 in Weight: 214 lb 6.4 oz Weight in Pounds 214.4 lbs Pulse Ox 98 Temperature 98.0 F Pulse Rate 74 Respiratory Rate 18 Blood Pressure 120/72 Blood Pressure Position Semi-Fowlers Constitutional: Denies: Anorexia, Chills, Fever Eyes: Denies: Blurred vision, Double vision HEENT: Denies: Head Aches, Sinus Congestion, Sinus Drainage Cardiovascular: Denies: Chest Pain, Palpitations Respiratory: Denies: Cough, Shortness of breath at rest, Sputum production Gastrointestinal: Denies: Abdominal Pain, Nausea, Vomiting Genitourinary: Denies: Dysuria Musculoskeletal: Reports: - - Left knee pain and swelling; left knee in brace Skin: Denies: Rash, Wounds Neurological: Denies: Numbness, Tingling, Focal weakness Hematologic/ Lymphatic: Denies: Easy Bruising, Easy Bleeding, Hx of blood clot Plan as stated above. Follow-up with her primary care doctor in 1 week. She was also given a prescription for outpatient physical therapy. Discharge Diet: 2000 mg Sodium Diet Discharge Activity: Use Walker Weight Bearing Status: Weight bearing as tolerated Call your doctor if you observe: Uncontrolled pain Home Medications: Medications to take at Discharge Folic Acid 2 mg PO QHS 03/21/13 Methotrexate 15 mg PO SA 03/21/13 Valsartan/Hydrochlorothiazide [Diovan Hct 320-12.5 MG Tab] 1 tablet PO QHS 03/21/13 traZODone [Desyrel] 50 mg PO QHS 03/21/13 leucovorin tablet 25 mg PO MCKEON 10/24/14 Oxycodone HCl/Acetaminophen [Percocet 5-325] 1 tablet PO Q4H PRN PRN 05/01/16 predniSONE tablet 20 mg PO PRN PRN 05/04/17 Amlodipine [Norvasc] 5 mg PO QHS 04/09/17 Clonidine HCl [Catapres] 0.2 mg PO DAILY PRN 04/09/17 Escitalopram Oxalate [Lexapro] 5 mg PO QHS 11/19/17 Ivig 60 gm IV X1 11/23/17 Omeprazole 40 mg PO DAILY PRN 11/23/17 Primary Care Physician: Willi Appiah [Primary Care Provider] - Please follow up with your Primary Care Physician in: one week Please Follow Up With: Kristen Bhardwaj DO When: in 2 days Patient Instructions: ED Knee Pain UKO Additional Instructions: outpatient physical therapy 3x weekly Disposition: Home Minutes spent on discharge:: 40 Patient Condition:: Stable Medical Necessity - Tobacco Use Smoking Status: Never smoker Meaningful Use Info Meaningful Use Diagnoses (Choose all that apply): None applicable Code Visit Inpatient E&M: 66451 Disch Hosp
--- NOTE | 2017-11-24 13:15 | DS.PCM_ITS ---
Discharge Date and Diagnosis - Problem List Patient Problems: Active and Suspected Problems Left knee pain (Acute) Date of Admission: 11/23/17 Date of Discharge: 11/24/17 - Primary Discharge Diagnosis Active and Suspected Problems Left knee pain (Acute) - Secondary Discharge Diagnosis Chronic Problems Dermatomyositis (Chronic) Hypertension (Chronic) History of stroke (Chronic) Hospital Course and Treatment Imaging Results: Diagnostic Data Knee X-Ray 11/23/17 14:12 IMPRESSION: Mild arthrosis of the medial femorotibial compartment. Soft tissue calcifications. Gas in the suprapatellar recess from aspiration earlier today. Electronically Signed: Pineda Meyer MD at 15:34 EDT Tel , Service support , Lower Extremity MRI 11/23/17 17:54 IMPRESSION: Stable medial meniscus tear. Degenerative change. Joint effusion with suprapatellar plica and air in the joint space consistent with recent injection. Electronically Signed: Demarcus Martinez MD at 22:31 EDT , Service support , orthopedic surgery-Dr Bhardwaj Operations: None Procedures: None Summary of Care Provided: The patient is a 52 year old F with past medical history of dermatomyositis, CVA and hypertension. She was admitted by the ED on 11/23/2017 with a complaint of left knee pain and swelling. She had at least sustained a left meniscal tear and was seen by the orthopedic nurse practitioner and Dr. Casper correlates office early on the day of presentation. She had an aspiration done and a subsequent steroid injection and felt better. She was able to ambulate and whilst ambulating she suddenly had severe left knee pain and had a sudden pop. She was not able to ambulate or weight-bear was unable to use crutches or a walker because of her dermatomyositis with associated weakness. She was therefore admitted for further imaging. MRI of the knee showed a moderateve volume effusion and a stable medial meniscal tear. She was reviewed by orthopedic surgeon Dr. Davis during admission and plan is to discharge her home today to follow-up with Dr. Naidu in 2 days time. An outpatient diagnostic arthroscopy will be done in the office. Patient states she has Percocet left over at home from her recent neck surgery and so that she does not need pain meds. Patient seen and examined prior to discharge. She still complained of knee pain but had been able to ambulate with physical therapy want her to have to walk up and down the stairs to minimize the pain. She denied any fever or chills, cough or shortness of breath, chest pain, abdominal pain, diarrhea vomiting. Review of systems otherwise negative. o/e: [] Vital Signs Height 5 ft 6 in Weight: 214 lb 6.4 oz Weight in Pounds 214.4 lbs Pulse Ox 98 Temperature 98.0 F Pulse Rate 74 Respiratory Rate 18 Blood Pressure 120/72 Blood Pressure Position Semi-Fowlers Constitutional: Denies: Anorexia, Chills, Fever Eyes: Denies: Blurred vision, Double vision HEENT: Denies: Head Aches, Sinus Congestion, Sinus Drainage Cardiovascular: Denies: Chest Pain, Palpitations Respiratory: Denies: Cough, Shortness of breath at rest, Sputum production Gastrointestinal: Denies: Abdominal Pain, Nausea, Vomiting Genitourinary: Denies: Dysuria Musculoskeletal: Reports: - - Left knee pain and swelling; left knee in brace Skin: Denies: Rash, Wounds Neurological: Denies: Numbness, Tingling, Focal weakness Hematologic/ Lymphatic: Denies: Easy Bruising, Easy Bleeding, Hx of blood clot Plan as stated above. Follow-up with her primary care doctor in 1 week. She was also given a prescription for outpatient physical therapy. Discharge Diet: 2000 mg Sodium Diet Discharge Activity: Use Walker Weight Bearing Status: Weight bearing as tolerated Call your doctor if you observe: Uncontrolled pain Home Medications: Medications to take at Discharge Folic Acid 2 mg PO QHS 03/21/13 Methotrexate 15 mg PO SA 03/21/13 Valsartan/Hydrochlorothiazide [Diovan Hct 320-12.5 MG Tab] 1 tablet PO QHS 03/21 traZODone [Desyrel] 50 mg PO QHS 03/21/13 leucovorin tablet 25 mg PO MCKEON 10/24/14 Oxycodone HCl/Acetaminophen [Percocet 5-325] 1 tablet PO Q4H PRN PRN 05/01/16 predniSONE tablet 20 mg PO PRN PRN 05/04/17 Amlodipine [Norvasc] 5 mg PO QHS 04/09/17 Clonidine HCl [Catapres] 0.2 mg PO DAILY PRN 04/09/17 Escitalopram Oxalate [Lexapro] 5 mg PO QHS 11/19/17 Ivig 60 gm IV X1 11/23/17 Omeprazole 40 mg PO DAILY PRN 11/23/17 Primary Care Physician: Willi Appiah [Primary Care Provider] - Please follow up with your Primary Care Physician in: one week Please Follow Up With: Kristen Bhardwaj DO When: in 2 days Patient Instructions: ED Knee Pain UKO Additional Instructions: outpatient physical therapy 3x weekly Disposition: Home Minutes spent on discharge:: 40 Patient Condition:: Stable Medical Necessity - Tobacco Use Smoking Status: Never smoker Meaningful Use Info Meaningful Use Diagnoses (Choose all that apply): None applicable Code Visit Inpatient E&M: 67004 Disch Hosp
[2017-11-24 15:36] VITALS: BP 115/74; PULSE 77; RESP 18; TEMP 37.1; O2SAT 98
== END 2017-11-24 14:00 | disposition home or self-care (01) ==
LOC: ED 13:02 → MS3 17:16
PROVIDERS: Emergency Provider Emergency Medicine; Visit Provider Student in an Organized Health Care Education/Training Program
DX: M25.562 Pain in left knee (principal); M33.90 Dermatopolymyositis, unspecified, organ involvement unspecified; Z86.73 Personal history of transient ischemic attack (TIA), and cerebral infarction without residual deficits; Z79.899 Other long term (current) drug therapy; I16.0 Hypertensive urgency; S83.242D Other tear of medial meniscus, current injury, left knee, subsequent encounter; X58.XXXD Exposure to other specified factors, subsequent encounter; I10 Essential (primary) hypertension
CPT/HCPCS: 73564; 73721; 96372; 96374; 96375; 97116; 97166; 97530; 99218; 99281; A4216; G0378

== ENCOUNTER → 2017-11-23 11:57 | Outpatient (CLI) | payer OTHER, SELFPAY ==
[2017-11-23 12:00] LABS: Pathologist Comment May follow
[2017-11-23 12:51] LABS: Synovial Fld Polynuclear WBC # 0.073 10^3/ul
[2017-11-23 13:02] LABS: AUTO B FLUID DILUENT BKGD CT WBC <0.1 RBC <0.01 (W<.1,R<.01)
[2017-11-23 13:03] LABS: Appearance /Synovial Fluid Sl Cl (CLEAR); Color / Synovial Fluid Yellow (Pale Yellow); Source / Synovial Fluid LEFT KNEE; Source- Body Fluid SYNOVIAL
[2017-11-23 13:17] LABS: RBC /Synovial Fluid 120 /mm3 (0)
[2017-11-23 13:55] LABS: Lymph 3 %; Monocyte /Synovial Fluid 94 %; Neutrophil 3 % (0-25)
[2017-11-24 10:25] LABS: Pathologist Review Reviewed
== END ==
PROVIDERS: Visit Provider Physician Assistant
DX: S83.242A Other tear of medial meniscus, current injury, left knee, initial encounter (principal); M25.462 Effusion, left knee
CPT/HCPCS: 87070; 87075; 87205; 89050; 89051; 89060

== ENCOUNTER 2017-12-02 10:19 | Day surgery (SDC) | payer OTHER, SELFPAY ==
[2017-12-02] VITALS (8 sets, daily range): BP systolic 114–160; BP diastolic 77–105; PULSE 74–102; RESP 16; TEMP 36.9–37.2; O2SAT 95–100; BMI 33.8
[2017-12-02] MEDS: Cefazolin 2 GM in 0.9% Normal Saline 100 ML IV (12:50)
--- NOTE | 2017-12-02 13:12 | PCM.DC.ORTHO ---
Discharge Diet: No Restrictions - remove dressings in 4 days and apply bandaids to incision sites, may get incision wet after 4 days, call with concerns, follow up in 2 weeks, Discharge Activity: May Not Drive May shower in (days): 1 Ice area for (Minutes): 20 - Every hour while awake. 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 Medications to take at Discharge Folic Acid 2 mg PO QHS 03/21/13 Methotrexate 15 mg PO SA 03/21/13 Valsartan/Hydrochlorothiazide [Diovan Hct 320-12.5 MG Tab] 1 tablet PO QHS 03/21/13 traZODone [Desyrel] 50 mg PO QHS 03/21/13 leucovorin tablet 25 mg PO MCKEON 10/24/14 Oxycodone HCl/Acetaminophen [Percocet 5-325] 1 tablet PO Q4H PRN PRN 05/01/16 predniSONE tablet 20 mg PO PRN PRN 08/21/16 Amlodipine [Norvasc] 5 mg PO QHS 04/09/17 Clonidine HCl [Catapres] 0.2 mg PO PRN PRN 04/09/17 Escitalopram Oxalate [Lexapro] 5 mg PO QHS 11/19/17 Ivig 60 gm IV X1 11/23/17 Omeprazole 40 mg PO DAILY PRN 11/23/17 Hydrocodone Bitart/Apap 5-325 [[place] 5MG-325MG] 1 - 2 tablet PO Q6H PRN PRN 5 Days #40 tablet 12/02/17 The following prescriptions were given: Hydrocodone Bitart/Apap 5-325 [[place] 5MG-325MG] 1 - 2 tablet PO Q6H PRN PRN 5 Days #40 tablet PRN Reason: Pain Primary Care Physician: Willi Appiah [Primary Care Provider] - Test Results: Test results from this visit will be discussed in further detail at your follow-up appointment, if applicable. Please Follow Up With: Kristen Bhardwaj, DO - [phone]
--- NOTE | 2017-12-02 13:13 | OP.PCM_ITS ---
Report of Operation Date of Procedure: 12/02/17 Pre-Operative Diagnosis: left knee medial and lateral meniscus tears Post-Operative Diagnosis: same Surgery/Procedure Performed:: salf, lat men repair, pmm Type of Anesthesia:: General, Local Anesthesiologist: Ricki Graves Estimated Blood Loss (mL): none Fluids Replaced: 1000ml lr Description of Procedure: Preoperative note Patient is a 52-year-old female who had a twisting injury was seen in my office she had an injection was feeling much better than had another twisting injury not too long afterwards and was unable to bear weight on her left leg. Patient was admitted for evaluation and repeat MRI did not show anything discernible different posterior horn medial meniscus tear and but when we listed in the office is questionable if there is a lateral meniscus tears as were her pain is and where there is a questionable lucency just medial to her popliteus fossa. Wrist benefits alternatives surgery discussed with patient. Risks including but not limited to blood loss, blood clot, infection, neurovascular injury, failure procedure, loss of life and loss of limb. Patient is aware like proceed with left knee arthroscopy repair is indicated. Operative note Patient seen and examined preoperative holding area. Left knee was marked. Patient brought to the operating room placed supine on the operating table. Signing, anesthesia, antibiotics were administered. The left leg was prepped and draped in usual sterile fashion with tourniquet around upper thigh. Marked out her incisions for anterior lateral anteromedial portal placement. Timeout was performed and elevated exsanguinated the leg and the tourniquet was raised her pressure of 250 torr. We created her anterior lateral portal with an 11 blade able to visualize the patellofemoral joint which was intact she had a little bit of thinning but no unstable pieces we moved to the medial joint line where the anterior medial portal was created under direct visualization. We then probed the medial meniscus there is a unstable posterior horn tear that was gently debrided with combination of a basket and shaver. The ACL and PCL were present in the notch. We moved to the lateral joint line. She actually had a tear that was medial to the more the popliteus tendon was was creating is quite an unstable lateral meniscus and then she had some erythema and redness posteriorly at the capsule which confirmed our questionable and lateral meniscus tear as well. We rasped the tear. We then placed 3 reverse curve all inside FasT-Fix anchors suture devices into the meniscus and then reinserted a probe and we have unstable meniscus remaining. We then microfracture the notch to instill blood flow into the area to also help further healing of the meniscus repair. We irrigated the knee with copious nonsterile saline the portals were closed with interrupted 4-0 nylon suture sterile dressings and a hinged brace locked in extension for ambulation allowed to be 0-40? while seated. Patient tolerated procedure well there are no comp occasions patient transferred to recovery room in stable condition. Next Operative note postoperative note Toe-touch weightbearing left leg Follow-up in 2 weeks in the office next Call with increased pain numbness tingling further issues arise next Hospital has prescription We will give patient her pictures in 2 weeks Dragon disclaimer This note was generated with [employer] dictation software. It may contain incorrect words, spelling, and punctuation that were not noted in checking the note before signing.
[2017-12-02] MEDS: Mupirocin Ointment 22gm Tube 1 APPLIC (13:53)
== END 2017-12-02 16:43 | disposition home or self-care (01) ==
LOC: SDC 10:20 → AC 10:21
PROVIDERS: Visit Provider Orthopaedic Surgery
PROC: (CPT 29870; principal; 2017-12-02 12:15)
DX: S83.242A Other tear of medial meniscus, current injury, left knee, initial encounter (principal); S83.282A Other tear of lateral meniscus, current injury, left knee, initial encounter; X50.1XXA Overexertion from prolonged static or awkward postures, initial encounter; Y93.9 Activity, unspecified; Y92.9 Unspecified place or not applicable; Y99.9 Unspecified external cause status; I10 Essential (primary) hypertension; E78.00 Pure hypercholesterolemia, unspecified; K21.9 Gastro-esophageal reflux disease without esophagitis; F32.9 Major depressive disorder, single episode, unspecified; F41.9 Anxiety disorder, unspecified; Z79.52 Long term (current) use of systemic steroids; Z79.899 Other long term (current) drug therapy; Z86.73 Personal history of transient ischemic attack (TIA), and cerebral infarction without residual deficits
CPT/HCPCS: 29881; 29882; J7120; J2405

== ENCOUNTER → 2017-12-28 09:48 | Outpatient (CLI) | payer OTHER, SELFPAY ==
[2017-12-28] VITALS (7 sets, daily range): BP systolic 109–143; BP diastolic 61–93; PULSE 57–90; RESP 16–18; TEMP 36–36.6; O2SAT 96–97; BMI 33.9
[2017-12-28] MEDS: Hydrocortisone Sod Succinate 100 MG/2 ML Vial IV (10:16)
[2017-12-28] MEDS: DiphenhydrAMINE 50 MG/ML Syringe IV (10:16)
[2017-12-28] MEDS: Immune Globulin 20 gm Premixed Solution IV ×3 (10:54→14:47)
== END ==
PROVIDERS: Visit Provider Internal Medicine Rheumatology
DX: M33.90 Dermatopolymyositis, unspecified, organ involvement unspecified (principal)
CPT/HCPCS: 96365; 96366 ×5; 96375 ×2; J7040; A4216; J1568

== ENCOUNTER 2018-01-08 10:00 | Outpatient (RCR) | payer OTHER, SELFPAY ==
--- NOTE | 2017-12-18 12:26 | HP.PTEVAL ---
Patient's Visit Information GABRIEL ZAMUDIO is a 52 year old F referred to Physical Therapy by Kristen Bhardwaj DO with a diagnosis of LEFT MENISCUS REPAIR. Date of Evaluation: 12/18/17 Physical Therapist: Azar Oneil PT, - Visit Plan Frequency: 3x /Week Duration: 8WEEKS Plan: S/P LEFT LATERAL MENISCUS REPAIR 12/02/17 S/P 3WEEKS SEPT 5. WBAT KNEE LOCKED IN EXTENSION WITH GAIT. SEE TRAM DEL ACRUZ FOR PROGRESSION - Subjective Subjective: This 52 y/o female presents to physical therapy presents to physical therapy left lateral meniscus repair 12/02/[address] Mckenzie at [facility]. Patient noticed pain in when changing sheet in camper noticed twinge October 20. Then 4 weeks symptoms worse with pain and swelling. Seen DR had MRI ,injection and drain fluid,November 23. Then had incident of pop same day in knee ,caused severe pain. Then went ER admitted then had surgery 12/02/17. Patient d/c to home with NWB LLE seen WBAT with cane with knee brace locked in extension with gait.Okay to unlock with ex's 0-40 degrees.Patient is impaired with all functional activities with ADLS; walking ,housework tasks and unable to return to job demands. VOCATION: [employer] [facility]. SOCIAL: - Pain Left Knee Pain Intensity (Out of 10): 3 Pain Intensity Range: 10 - Objective POSTURE: mild foward posture knee brace locked in extension. GAIT: ambulates with with cane with knee brace locked 2 point with decrease stance time. NEURO: denies parathesia/tingling ,redflexes intact. AROM: 5-70 degrees supine knee flexion. PATELLA MOBS: mild- mod restricted. EDEMA: joint line 49 cm. MMT: NT quads/hams ,hip flexion/abd/extension 3+/5,ankle 4/5. PROPRIOCEPTION: poor left. STAIRS: asecnd/descend steps with rail/cane one step at a time - Goals Goal 1:: Independant with HEP Goal Time Frame: 8-12 Weeks Goal 2:: Improve gait with normal ramón stance and swing phase symmtrical right to left . Goal Time Frame: 8-12 Weeks Goal 3:: Patient improve AROM knee flexion 130 degrees to improve stairs Goal Time Frame: 8-12 Weeks Goal 4:: Patient to improve strength quads/hams to 4/5 to improve function and ADL'S Goal Time Frame: 8-12 Weeks Goal 5:: Patient return job demands ,housework tasks with min limiations Goal Time Frame: 8-12 Weeks Goal 6:: Patient to improve LFES score to by 20-25min to improve QOL. Goal Time Frame: 8-12 Weeks - Rehabilitation Potential Physical Therapy Diagnosis: This patient underwent s/p lateral meniscus repair om 12/02 with decrease ROM,strength ,gait ,balnce and return to jodi demands thus benifit from skilled PT Rehabilitation Potential: Good - Anticipated Interventions Patient/Client Instruction: Educate patient on: Condition, Plan of Care For the Purpose of:: To decrease pain, To increase ROM, To improve muscle performance and motor function, To improve ability to perform ADL's, To increase tolerance to activity/condition/position, To improve ability of physical actions for home/community/work/leisure, To improve gait and locomotor functions, To improve health of tissue, To decrease soft tissue restriction, To increase flexibility/ROM, To improve ability to perform tasks related to life management Therapeutic Exercise to Include: Strength training, Endurance training, Balance training, Postural training, Flexibilty training, Passive ROM, Active ROM Comment: SEE PROTROCAL GUIIDLENES WITH MENISCUS REPAIR For the Purpose of:: To decrease pain, To decrease swelling/inflammation, To increase ROM, To improve muscle performance and motor function, To improve ability to perform ADL's, To improve performance and independence with ADL's, To improve ability of physical actions for home/community/work/leisure, To improve gait and locomotor functions, To improve health of tissue, To decrease soft tissue restriction, To increase flexibility/ROM, To improve endurance, To improve balance IF ES: Yes Cryotherapy (ice pack, ice massage): Yes Vasopneumatic device: Yes For the Purpose of:: To decrease pain, To decrease swelling/inflammation, To increase ROM, To improve health of tissue, To decrease soft tissue restriction Thank you for the opportunity to evaluate your patient. For Medicare and Medicare HMO plans, please review the plan of care and approve it. It will need to be FAXED BACK to us at [phone] for Medicare purposes. Please let me know if there are questions or concerns regarding this plan of care. Physician Signature: Date:
--- NOTE | 2018-01-08 10:42 | HP.PTDCSUM ---
HP - PT D/C Summary It has been my pleasure to treat GABRIEL ZAMUDIO under orders from Kristen Bhardwaj DO, for the diagnosis of LEFT MENISCUS REPAIR for a total of 10 visit(s). Discharge Date: 01/08/18 Please see the following information for a summary of their discharge status. - Subjective Subjective: Doing well ,.Seen DR happy with progress D/C to HEP is okay plan to workout at [employer]. RTW thursday. - Pain Left Knee Pain Intensity (Out of 10): 0 - Overall Improvement % Improvement: 75 - Objective Objective/Function: POSTURE: WFL. GAIT: normal ramón. MMT: quads/hams 4/5/hip 4-/5/ankle 4/f. AROM: 0-125 degrees. STAIRS: alternating with rail - Goals Goal 1:: Independant with HEP Goal Progress: Goal Met Goal 2:: Improve gait with normal ramón stance and swing phase symmtrical right to left . Goal Progress: Goal Met Goal 3:: Patient improve AROM knee flexion 130 degrees to improve stairs Goal 4:: Patient to improve strength quads/hams to 4/5 to improve function and ADL'S Goal Progress: Goal Met Goal 5:: Patient return job demands ,housework tasks with min limiations Goal Progress: Goal Met Goal 6:: Patient to improve LFES score to by 20-25min to improve QOL. Goal Progress: Goal Met - Plan Plan: D/C HEP AND GYM EX'S - D/C Information Discharge Comments: HEP If there are questions or concerns regarding this patient's physical therapy, please feel free to call me at [phone]. Thank you for the referral of this patient. Sincerely, Azar Oneil, PT,
== END 2018-01-08 19:00 | disposition home or self-care (01) ==
LOC: PT 10:00
PROVIDERS: Visit Provider Orthopaedic Surgery
DX: Z98.890 Other specified postprocedural states (principal)
CPT/HCPCS: 97110; 97162

== ENCOUNTER → 2018-02-15 09:44 | Outpatient (CLI) | payer OTHER, SELFPAY ==
[2018-02-15 10:21] LABS: Absolute Lymphocyte Count 1.53 X10^3/ul (0.83-4.51); Absolute Neutrophil Count 3.9 X10^3/uL (2.0-7.7); Basophil# 0.02 X10^3/uL; Basophil% 0.3 % (0-1); Eosinophil# 0.08 X10^3/uL; Eosinophils% 1.4 % (0-5); Hematocrit 43.3 % (37-47); Hemoglobin 14.6 g/dl (12.0-15.0); Lymphocyte # 1.53 X10^3/ul (4.0); Lymphocyte % 25.8 % (19-41); Mean Corp Hgb Conc 33.7 g/gl (32-36); Mean Corpuscular Hgb 30.4 pg (27.0-32.0); Mean Corpuscular Volume 90.2 fL (81-99); Mean Platelet Vol. 8.6 fl (6.2-12.0); Monocyte# 0.41 X10^3/uL; Monocyte% 6.9 % (0-10); Neutrophil # 3.87 X10^3/uL (2.7-7.7); Neutrophil % 65.4 % (47-70); Platelet Count 271 K/mm3 (150-450); RBC Distribution Width CV 13.4 % (11.6-14.6); RBC Distribution Width SD 43.8 fl (35.1-43.9); White Blood Count 5.9 K/mm3 (4.4-11.0)
[2018-02-15 10:22] LABS: POSITIVE COUNT NO; POSITIVE DIFFERENTIAL NO; POSITIVE MORPHOLOGY NO
[2018-02-15 10:54] LABS: BUN 19 mg/dL (7-18); Creatinine, Serum 0.94 mg/dL (0.55-1.02); Glucose 115 mg/dL (74-106)
[2018-02-15 10:55] LABS: ALB/GLOB Ratio 1.1 RATIO (0.9-2.4); AST(SGOT) 47 U/L (15-37); Alanine Aminotransfer ALT/SGPT 65 U/L (13-56); Alkaline Phosphatase 80 U/L (45-117); Anion Gap 9 (5-15); BUN/Creat Ratio 20.1 RATIO (10-20); CPK Total, Creatine Kinase 132 U/L (26-192); Calcium,Total 9.4 mg/dL (8.5-10.1); Chloride 102 mmol/L (98-107); EST Glomerular Filtration Rate 66 mL/min (>60); Est Glom Filt Rate - Afr Amer 79 mL/min (>60); Globulin 3.7 g/dL (2.2-4.2); Potassium 4.6 mmol/L (3.5-5.1); Protein, Total 7.7 g/dL (6.4-8.2); Sodium Level 142 mmol/L (136-145)
[2018-02-17 10:27] LABS: Aldolase 6.9 U/L (3.3-10.3)
== END ==
PROVIDERS: Family Provider Family Medicine; PCP Family Medicine; Referring Provider Internal Medicine Rheumatology; Visit Provider Internal Medicine Rheumatology
DX: M33.92 Dermatopolymyositis, unspecified with myopathy (principal); Z79.899 Other long term (current) drug therapy; M18.11 Unilateral primary osteoarthritis of first carpometacarpal joint, right hand; K21.0 Gastro-esophageal reflux disease with esophagitis; M50.30 Other cervical disc degeneration, unspecified cervical region; M51.37 Other intervertebral disc degeneration, lumbosacral region; I10 Essential (primary) hypertension
CPT/HCPCS: 36415; 80053; 82085; 82550; 85025

== ENCOUNTER → 2018-02-19 15:29 | Outpatient (CLI) | payer OTHER, SELFPAY ==
--- NOTE | 2018-02-19 15:32 | CT_ITS ---
HISTORY: R/o underlying malignancy, occasional rectal bleeding. Hx dermatomyositis, cholecystectomy, . TECHNIQUE: Helically acquired images were obtained of the chest following IV contrast. A radiation dose optimization technique was used for this scan. IV Contrast dosage and agent: 100 cc Isovue-300 contrast. COMPARISON: Two-view chest exam 02/23/2013 FINDINGS: The lung parenchyma appears clear. Normal lung volumes. No pulmonary infiltrate, pulmonary nodule, or mass. No bronchiectasis or interstitial lung disease. No pleural effusion or significant pleural disease. Thoracic aorta is normal in caliber. No pericardial effusion. No hilar, mediastinal, or axillary lymph node enlargement seen. Small hiatal hernia. Fatty liver. Cholecystectomy. Numerous widespread punctate calcifications within the subcutaneous fat and this correlates with known dermatomyositis. CT/Chest WITH Contrast IMPRESSION: 1. No suspicious lesion or acute disease. 2. Chronic findings include small hiatal hernia and fatty liver. 3. Benign changes of dermatomyositis. Individualized dose optimization techniques were used for this CT. at 0024 Reported and signed by: Jacob Ortega MD Electronically Signed: Jacob Ortega, at 0:22 EDT Tel , Service support ,
--- NOTE | 2018-02-19 15:33 | CT_ITS ---
HISTORY: R/o underlying malignancy, occasional rectal bleeding. Hx dermatomyositis, cholecystectomy, . TECHNIQUE: Helically acquired images were obtained of the abdomen and pelvis following oral and IV contrast. IV Contrast dosage and agent: 100 cc Isovue-300 contrast. Oral contrast: Yes.. COMPARISON: 02/24/2015 FINDINGS: Widespread punctate calcifications within subcutaneous fat and this correlates with known history of dermatomyositis. The pattern is stable. Fat-containing umbilical hernia, also present previously Lung bases: No pleural effusion. Small hilar hernia. Cholecystectomy with surgical clips within the gallbladder fossa. No biliary dilatation. Fatty liver without suspicious lesion. The spleen and pancreas show no CT abnormality. Bilateral renal opacification without hydronephrosis or suspicious renal lesion. Left renal small cortical and parapelvic cysts the adrenals are not enlarged. Abdominal aorta and IVC are unremarkable. No ascites or retroperitoneal lymphadenopathy. GI tract: No obstruction. The appendix is not visualized. Distal colonic diverticula without diverticulosis. Pelvis: Anteverted uterus which is normal in size. The pelvis shows no free fluid or lymphadenopathy. Urinary bladder is poorly distended. Osseous structures: No suspicious lesion. Degenerative disc disease and spondylosis of the lumbosacral junction. CT/Abdomen/Pelvis WITH Contrast IMPRESSION: 1. Diverticulosis coli without findings of diverticulitis or other acute disease. 2. No lymphadenopathy or suspicious lesion. 3. Chronic changes include fatty liver, small hiatal hernia, and fat-containing umbilical hernia. 4. Benign changes of dermatomyositis. Individualized dose optimization techniques were used for this CT. at 0016 Reported and signed by: Jacob Ortega MD Electronically Signed: Jacob Ortega, at 0:14 EDT Tel , Service support ,
== END ==
PROVIDERS: Family Provider Family Medicine; PCP Family Medicine; Referring Provider Family Medicine; Visit Provider Family Medicine
DX: M33.90 Dermatopolymyositis, unspecified, organ involvement unspecified (principal); K44.9 Diaphragmatic hernia without obstruction or gangrene; K76.0 Fatty (change of) liver, not elsewhere classified; K42.9 Umbilical hernia without obstruction or gangrene
CPT/HCPCS: 71260; 74177; Q9967

== ENCOUNTER → 2018-03-25 08:43 | Outpatient (CLI) | payer OTHER, SELFPAY ==
[2018-03-08 15:20] VITALS: BMI 35.7
[2018-03-25] VITALS (8 sets, daily range): BP systolic 123–160; BP diastolic 73–95; PULSE 55–76; RESP 15–18; TEMP 36.2–36.6; O2SAT 94–95; BMI 34.9
[2018-03-25] MEDS: Hydrocortisone Sod Succinate 100 MG/2 ML Vial IV (09:10)
[2018-03-25] MEDS: DiphenhydrAMINE 50 MG/ML Syringe IV (09:15)
[2018-03-25] MEDS: Immune Globulin 20 gm Premixed Solution IV ×2 (09:45→12:24)
[2018-03-25] MEDS: Immune Globulin 10 gm Premixed Solution IV ×2 (13:59→14:29)
== END ==
PROVIDERS: Referring Provider Internal Medicine Rheumatology; Visit Provider Internal Medicine Rheumatology
DX: M33.90 Dermatopolymyositis, unspecified, organ involvement unspecified (principal)
CPT/HCPCS: 96365; 96366 ×5; J7040; A4216; J1568

== ENCOUNTER 2018-04-06 05:44 | Day surgery (SDC) | payer OTHER, SELFPAY ==
[2018-03-08 15:20] VITALS: BMI 35.7
[2018-03-25 08:55] VITALS: BMI 34.9
--- NOTE | 2018-04-06 | IMM_PTH ---
PATIENT: GABRIEL ZAMUDIO LOC: [facility] U#:[id number] AGE/SX: 52/F ROOM: RE04/06/[address]: Dr. Yared Carroll MD : 1965 BED: DIS: 04/06/2018 SPEC #: [id number] RECD: 04/07/18 11:42 STATUS: LEEANN REMin #: [id number] MEENU: 04/06/18 00:[address]: Yared Carroll DEPT: IMMUNOHISTOCHEMISTRY RECD BY: Nguyen Waite ENTERED: 04/07/18 11:43 SP TYPE: IMMUNO OTHR DR: Dr. Ashli Perez MD Tissues: A - Stomach, NOS Procedures: H Pylori (initial) PHYSICIAN & INSTITUTION [place] [id number] SPECIMEN INFORMATION: Tissue Source: A - Gastric antrum biopsy Clinical Info: GERD Specimen Number: [id number] CPT code: 46985 METHODOLOGY: Deparaffinized sections of prefer/formalin-fixed tissue or PAP/DQ stained slides are incubated with monoclonal/polyclonal antibodies/oligonucleotide probes. Localization is made via biotin free immunoperoxidase method. Appropriate controls are performed and reacted as expected. Results on target cell population are indicated in the following table: RESULTS: ANTIBODY / CLONE RESULT Block A H Pylori (polyclonal) negative These tests were developed and their performance characteristics determined by [facility]. They may not have been cleared or approved by the U.S. Food and Drug Administration. The FDA has determined that such clearance or approval is not necessary. INTERPRETATION: A. Gastric antrum, biopsy: Negative for Helicobacter pylori organisms. SJ:sathya 04/08/18
[2018-04-06 06:07] VITALS: BP 132/92; PULSE 91; RESP 16; TEMP 37.1; O2SAT 99; BMI 36.1
--- NOTE | 2018-04-06 07:00 | EGD_PTH ---
PATIENT: GABRIEL ZAMUDIO LOC: [facility] U#:[id number] AGE/SX: 52/F ROOM: RE04/06/[address]: Dr. Yared Carroll MD : 1965 BED: DIS: 04/06/2018 SPEC #: [id number] RECD: 04/06/18 09:23 STATUS: LEEANN IMTIAZ #: [id number] MEENU: 04/06/18 07:[address]: Yared Carroll DEPT: SURGICAL PATHOLOGY RECD BY: Alejandro Penn ENTERED: 04/06/18 12:01 SP TYPE: EGD BIOPSY MALOU DR: Dr. Ashli Perez MD Tissues: A - Gastric mucous membrane B - Esophageal mucous membrane C - Esophageal mucous membrane D - Cecum, NOS Procedures: Surgery Specimen Level IV HEADER OPERATION: Colonoscopy, EGD ([facility] [place]) PRE-OP DIAGNOSIS: GERD, screening TISSUE SUBMITTED: A - Biopsy gastric antrum, B - Biopsy distal esophagus, C - Biopsy mid esophagus, D - Polyp cecum MICROSCOPIC DIAGNOSIS A. Gastric antrum, biopsy: Mild gastritis. See microscopic description and comment. B. Distal esophagus, biopsy: Fragments of gastroesophageal mucosa with chronic inflammation. Intestinal metaplasia (goblet cell metaplasia) is not identified. See comment. C. Mid esophagus, biopsy: Fragments of squamous epithelium, no pathologic diagnosis. D. Cecum polyp, biopsy: Fragments of tubular adenoma. Fragments of fecal material. SJ:sathya 04/07/18 COMMENT A. The results of immunohistochemistry for Helicobacter pylori will be reported separately ([id number]). B. Alcian blue/PAS stain with matched control is used in the evaluation of the specimen. MICROSCOPIC DESCRIPTION Slides are reviewed. A. The specimen shows fragments of gastric mucosa with chronic inflammatory cell infiltrates in the lamina propria consisting of lymphocytes and plasma cells, consistent with mild chronic gastritis. GROSS DESCRIPTION A - Received in fixative is one container labeled with the patient's name and designated biopsy gastric antrum. The specimen consists of two irregular fragments of light mcneil soft tissue that in aggregate measure 0.3 x 0.3 x 0.1 cm. The specimen is totally submitted in one cassette. B - Received in fixative is one container labeled with the patient's name and designated biopsy distal esophagus. The specimen consists of multiple irregular fragments of light mcneil soft tissue that in aggregate measure 0.4 x 0.2 x 0.1 cm. The specimen is totally submitted in one cassette. C - Received in fixative is one container labeled with the patient's name and designated biopsy mid esophagus. The specimen consists of multiple irregular fragments of light mcneil soft tissue that in aggregate measure 0.3 x 0.3 x 0.1 cm. The specimen is totally submitted in one cassette. D - Received in fixative is one container labeled with the patient's name and designated cecum polyp. The specimen consists of multiple irregular fragments of light mcneil soft tissue mixed with fecal material that in aggregate measure 1 x 0.3 x 0.2 cm. The specimen is totally submitted in one cassette. / SJ:sathya 04/06/18 TC:1 CPT: 40615 x4, 53041
[2018-04-06 07:30] VITALS: BP 132/92; BP 145/98; BP 158/104; PULSE 80; PULSE 83; RESP 16; TEMP 36; O2SAT 97; O2SAT 99
--- NOTE | 2018-04-06 07:32 | OP.ENDO_ITS ---
Patient Name: Pao Kapoor Procedure Date: 04/06/2018 6:55 AM Date of : 1965 Age: 52 Procedure: Upper GI endoscopy Indications: Esophageal reflux Providers: Yared Carroll MD Referring MD: Yared Carroll MD Medicines: See the Anesthesia note for documentation of the administered medications Complications: No immediate complications. Procedure: Pre-Anesthesia Assessment: - Prior to the procedure, a History and Physical was performed, and patient medications and allergies were reviewed. The patient's tolerance of previous anesthesia was also reviewed. The risks and benefits of the procedure and the sedation options and risks were discussed with the patient. All questions were answered, and informed consent was obtained. Prior Anticoagulants: The patient has taken no previous anticoagulant or antiplatelet agents. ASA Grade Assessment: III - A patient with severe systemic disease. After reviewing the risks and benefits, the patient was deemed in satisfactory condition to undergo the procedure. After obtaining informed consent, the endoscope was passed under direct vision. Throughout the procedure, the patient's blood pressure, pulse, and oxygen saturations were monitored continuously. The gastroscope was introduced through the mouth, and advanced to the second part of duodenum. The upper GI endoscopy was accomplished without difficulty. The patient tolerated the procedure well. Scope In: 7:02:36 AM Scope Out: 7:07:41 AM Total Procedure Duration Time 0 hours 5 minutes 5 seconds Findings: The Z-line was regular and was found 39 cm from the incisors. Biopsies were taken with a cold forceps for histology. A small hiatal hernia was present. Diffuse mild inflammation was found in the gastric antrum. Biopsies were taken with a cold forceps for histology. The examined duodenum was normal. Impression: - Z-line regular, 39 cm from the incisors. Biopsied. Mid esophagus biopsied for possible eosinophilic esophagitis - Small hiatal hernia. - Chronic gastritis. Biopsied. - Normal examined duodenum. Recommendation: - Discharge patient to home. - Resume previous diet. - Continue present medications. - Telephone my office for pathology results in 1 week. Procedure Code(s): --- Professional --- 33362, Esophagogastroduodenoscopy, flexible, transoral; with biopsy, single or multiple Diagnosis Code(s): --- Professional --- K44.9, Diaphragmatic hernia without obstruction or gangrene K29.50, Unspecified chronic gastritis without bleeding K21.9, Gastro-esophageal reflux disease without esophagitis CPT copyright 2017 [employer]. All rights reserved. The codes documented in this report are preliminary and upon paint pourer review may be revised to meet current compliance requirements. Yared Carroll MD 04/06/2018 7:31:59 AM This report has been signed electronically. Number of Addenda: 0 Note Initiated On: 04/06/2018 6:55 AM
--- NOTE | 2018-04-06 07:35 | OP.ENDO_ITS ---
Patient Name: Pao Kapoor Procedure Date: 04/06/2018 7:09 AM Date of : 1965 Age: 52 Procedure: Colonoscopy Indications: Screening for colorectal malignant neoplasm Providers: Yared Carroll MD Referring MD: Yared Carroll MD Medicines: See the Anesthesia note for documentation of the administered medications Patient Profile: Last Colonoscopy: more than 10 years ago. Complications: No immediate complications. Procedure: Pre-Anesthesia Assessment: - Prior to the procedure, a History and Physical was performed, and patient medications and allergies were reviewed. The patient's tolerance of previous anesthesia was also reviewed. The risks and benefits of the procedure and the sedation options and risks were discussed with the patient. All questions were answered, and informed consent was obtained. Prior Anticoagulants: The patient has taken no previous anticoagulant or antiplatelet agents. ASA Grade Assessment: III - A patient with severe systemic disease. After reviewing the risks and benefits, the patient was deemed in satisfactory condition to undergo the procedure. After I obtained informed consent, the scope was passed under direct vision. Throughout the procedure, the patient's blood pressure, pulse, and oxygen saturations were monitored continuously. The Colonoscope was introduced through the anus and advanced to the cecum, identified by appendiceal orifice and ileocecal valve. The colonoscopy was performed without difficulty. The patient tolerated the procedure well. The quality of the bowel preparation was good. The ileocecal valve was photographed. Scope In: 7:10:49 AM Scope Withdrawal Time 0 hours 10 minutes 20 seconds Scope Out: 7:26:52 AM Total Procedure Duration Time 0 hours 16 minutes 3 seconds Findings: Hemorrhoids were found on perianal exam. A 10 mm polyp was found in the cecum. The polyp was semi-sessile. The polyp was removed with a hot snare. Resection and retrieval were complete. To prevent bleeding post-intervention, one hemostatic clip was successfully placed. There was no bleeding at the end of the procedure. A few diverticula were found in the sigmoid colon and descending colon. Impression: - Hemorrhoids found on perianal exam. - One 10 mm polyp in the cecum, removed with a hot snare. Resected and retrieved. Clip was placed. - Diverticulosis in the sigmoid colon and in the descending colon. Recommendation: - Discharge patient to home. - Resume previous diet. - Continue present medications. - Repeat colonoscopy in 3 years for surveillance based on pathology results. - Telephone my office for pathology results in 1 week. Procedure Code(s): --- Professional --- 86376, Colonoscopy, flexible; with removal of tumor(s), polyp(s), or other lesion(s) by snare technique Diagnosis Code(s): --- Professional --- Z12.11, Encounter for screening for malignant neoplasm of colon K64.9, Unspecified hemorrhoids D12.0, Benign neoplasm of cecum K57.30, Diverticulosis of large intestine without perforation or abscess without bleeding CPT copyright 2017 [employer]. All rights reserved. The codes documented in this report are preliminary and upon sparker and patcher review may be revised to meet current compliance requirements. Yared Carroll MD 04/06/2018 7:34:44 AM This report has been signed electronically. Number of Addenda: 0 Note Initiated On: 04/06/2018 7:09 AM
[2018-04-06 07:40] VITALS: BP 132/92; BP 159/98; PULSE 72; RESP 16; O2SAT 100
[2018-04-06 07:46] VITALS: BP 132/92; BP 152/98; PULSE 71; RESP 16; TEMP 36.1; O2SAT 97
[2018-04-06 07:55] VITALS: BP 132/92
--- OUTSIDE RECORDS SUMMARY | 2018-07-08 11:16 | XMS RPT_ITS ---
:1965 Author Organization OHIP Support Name Relationship Address Phone CYRUS ZAMUDIO Unavailable [address] + [place] [address] [facility] Unavailable [address] + [place] [address] CYRUS ZAMUDIO Unavailable [address] + [place] [address] [facility] Unavailable [address] + [place] [address] CYRUS ZAMUDIO Unavailable [address] + [place] [address] [facility] Unavailable [address] + [place] [address] CYRUS ZAMUDIO Unavailable [address] + [place] [address] [facility] Unavailable [address] + [place] [address] NASIR ZAMUDIOEW Unavailable [address] + [place] [address] [facility] Unavailable [address] + [place] [address] NASIR ZAMUDIOEW Unavailable [address] + [place] [address] [facility] Unavailable [address] + [place] [address] CYRUS ZAMUDIO Unavailable [address] + [place] [address] [facility] Unavailable [address] + [place] [address] NASIR ZAMUDIOEW Unavailable [address] + [place] [address] [facility] Unavailable [address] + [place] [address] MENUEZ, CYRUS Unavailable [address] + [place] [address] [facility] Unavailable [address] + [place] [address] MENUEZ, CYRUS Unavailable [address] + [place] [address] [facility] Unavailable [address] + [place] [address] MENUEZ, CYRUS Unavailable [address] + [place] [address] [facility] Unavailable [address] + [place] [address] MENUEZ, CYRUS Unavailable [address] + [place] [address] [facility] Unavailable [address] + [place] [address] MENUEZ, CYRUS Unavailable [address] + [place] [address] [facility] Unavailable [address] + [place] [address] MENUEZ, CYRUS Unavailable [address] + [place] [address] [facility] Unavailable [address] + [place] [address] MENUEZ, CYRUS Unavailable [address] + [place] [address] [facility] Unavailable [address] + [place] [address] MENUEZ, CYRUS Unavailable [address] + [place] [address] [facility] Unavailable [address] + [place] [address] MENUEZ, CYRUS Unavailable [address] + [place] [address] [facility] Unavailable [address] + [place] [address] MENUEZ, CYRUS Unavailable [address] + [place] [address] [facility] Unavailable [address] + [place] [address] MENUEZ, CYRUS Unavailable [address] + [place] [address] [facility] Unavailable [address] + [place] [address] MENUEZ, CYRUS Unavailable [address] + [place] [address] [facility] Unavailable [address] + [place] [address] MENUEZ, CYRUS Unavailable [address] + [place] [address] [facility] Unavailable [address] + [place] [address] MENUEZ, CYRUS Unavailable [address] + [place] [address] [facility] Unavailable [address] + [place] [address] MENUEZ, CYRUS Unavailable [address] + [place] [address] [facility] Unavailable [address] + [place] [address] MENUEZ, CYRUS Unavailable [address] + [place] [address] [facility] Unavailable [address] + [place] [address] MENUEZ, CYRUS Unavailable [address] + [place] [address] [facility] Unavailable [address] + [place] [address] MENUEZ, CYRUS Unavailable [address] + [place] [address] [facility] Unavailable [address] + [place] [address] MENUEZ, CYRUS Unavailable [address] + [place] [address] [facility] Unavailable [address] + [place] [address] MENUEZ, CYRUS Unavailable [address] + [place] [address] [facility] Unavailable [address] + [place] [address] Care Team Providers Name Role Phone Glen Yared Attending Unavailable Vellanki, Joceline Attending Unavailable Vellanki, Joceline Referring Unavailable Td, Willi Primary Care Unavailable Vellanki, Joceline Attending Unavailable Vellanki, Joceline Referring Unavailable Td, Willi Primary Care Unavailable ShimonitJeannine jenkins N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C Attending Unavailable OpsmichaelnickJeannine N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C Referring Unavailable Td, Willi Primary Care Unavailable Vellanki, Joceline Attending Unavailable Vellanki, Joceline Referring Unavailable Td, Willi Primary Care Unavailable Vellanki, Joceline Attending Unavailable Vellanki, Joceline Referring Unavailable Td, Willi Primary Care Unavailable ASSESSMENT, HEALTH RISK Attending Unavailable ASSESSMENT, HEALTH RISK Referring Unavailable Td, Willi Primary Care Unavailable Td, Willi Primary Care Unavailable Danilo Burton Attending Unavailable Vellanki, Joceline Attending Unavailable Vellanki, Joceline Referring Unavailable Wvedel, Ashli Primary Care Unavailable Cyrus Lord Attending Unavailable Td, Willi Referring Unavailable Td, Willi Primary Care Unavailable Td, Willi Primary Care Unavailable Jopperi, Allen Admitting Unavailable Koram, Jaqueline Damaris Attending Unavailable Zena Bhardwaje Consulting Unavailable Cyrus Lord Attending Unavailable Td, Willi Primary Care Unavailable Jopperi, Allen Admitting Unavailable Jopperi, Allen Attending Unavailable Td, Willi Primary Care Unavailable Jopperi, Allen Consulting Unavailable Jopperi, Allen Admitting Unavailable Koram, Jaqueline Damaris Attending Unavailable Td, Willi Primary Care Unavailable Benton Kristen Consulting Unavailable Koram, Jaqueline Damaris Consulting Unavailable WaytNasirew Attending Unavailable Td, Willi Referring Unavailable Td, Willi Primary Care Unavailable Zena Bhardwaje Attending Unavailable Janeenorelli, Kristen Referring Unavailable Td, Willi Primary Care Unavailable Zena Bhardwaje Attending Unavailable Td, Willi Referring Unavailable Td, Willi Primary Care Unavailable Chicmarie Kristen Attending Unavailable Chicorelli, Kristen Referring Unavailable Td, Willi Primary Care Unavailable Kristen Bhardwaj Attending Unavailable Vellanki, Joceline Attending Unavailable Vellanki, Joceline Referring Unavailable Td, Willi Primary Care Unavailable Kristen Bhardwaj Attending Unavailable Td, Willi Referring Unavailable Td, Willi Primary Care Unavailable Kristen Bhardwaj Attending Unavailable Allen Fernandez Referring Unavailable Vellanki, Joceline Attending Unavailable Vellanki, Joceline Referring Unavailable Miedel, Ashli Primary Care Unavailable Miedel, Ashli Attending Unavailable Miedel, Ashli Referring Unavailable Miedel, Ashli Primary Care Unavailable Kristen Bhardwaj Attending Unavailable Td, Willi Referring Unavailable Yared Carroll Attending Unavailable Td, Willi Referring Unavailable Vellanki, Joceline Attending Unavailable Vellanki, Joceline Referring Unavailable Td, Willi Primary Care Unavailable Yared Carroll Attending Unavailable Glen Yared Referring Unavailable Miedel, Ashli Primary Care Unavailable PROBLEMS PROBLEMS DATE TYPE CONDITION / CODE ATTENDING STATUS SOURCE 05/12/2018 Unknown 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, Community unspecified with Hospital myopathy / Repository M33.92(ICD-10) 05/12/2018 Unknown Z79.899 - Other long María Joceline Active [place] term (current) drug Community therapy / Hospital Z79.899(ICD-10) Repository 05/12/2018 Unknown M18.11 - Unilateral Vellanki, Joceline Active [place] primary Community osteoarthritis of Hospital first carpometacarpal Repository joint, right hand / M18.11(ICD-10) 05/12/2018 Unknown M50.30 - Other Vellanki, Joceline Active [place] cervical disc Community degeneration, Hospital unspecified cervical Repository region / M50.30(ICD-10) 05/12/2018 Unknown M51.37 - Other Vellanki, Joceline Active [place] intervertebral disc Community degeneration, Hospital lumbosacral region / Repository M51.37(ICD-10) 05/12/2018 Unknown K21.0 - Vellanki, Joceline Active [place] Gastro-esophageal Community reflux disease with Hospital esophagitis / Repository K21.0(ICD-10) 05/04/2018 Unknown Z12.11 - Encounter Yared Carroll Active [place] for screening for Community malignant neoplasm of Hospital colon / Repository Z12.11(ICD-10) 05/04/2018 Unknown 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 / Community D12.0(ICD-10) Hospital Repository 05/04/2018 Unknown K64.9 - Unspecified Cebul, Yared Active [place] hemorrhoids / Community K64.9(ICD-10) Hospital Repository 05/04/2018 Unknown K57.30 - Cebul, Yared Active [place] Diverticulosis of Community large intestine Hospital without perforation Repository or abscess without bleeding / K57.30(ICD-10) 05/04/2018 Unknown K21.9 - Cebul, Yared Active [place] Gastro-esophageal Community reflux disease Hospital without esophagitis / Repository K21.9(ICD-10) 05/04/2018 Unknown K29.50 - Unspecified Cebul, Yared Active [place] chronic gastritis Community without bleeding / Hospital K29.50(ICD-10) Repository 05/04/2018 Unknown K44.9 - Diaphragmatic CebulYared Active [place] hernia without Community obstruction or Hospital gangrene / Repository K44.9(ICD-10) 02/19/2018 Unknown M33.90 - Ashli Perez Active [place] Dermatopolymyositis, Community unspecified, organ Hospital involvement Repository unspecified / M33.90(ICD-10) 02/18/2018 Unknown M17.12 - Unilateral Chicorelli, Active [place] primary [facility] osteoarthritis, left Hospital knee / M17.12(ICD-10) Repository 02/15/2018 Unknown I10 - Essential Joceline Daniel Active [place] (primary) Community hypertension / Hospital I10(ICD-10) Repository 03/19/2018 Unknown Z98.890 - Other Chicorelli, Active [place] specified [facility] postprocedural states Hospital / Z98.890(ICD-10) Repository 12/02/2017 Unknown G89.18 - Other acute Chicorelli, Active [place] postprocedural pain / [facility] G89.18(ICD-10) Hospital Repository 01/05/2018 Unknown M25.562 - Pain in Chicorelli, Active [place] left knee / Kristen [facility] M25.562(ICD-10) Hospital Repository 11/23/2017 Unknown M25.462 - Effusion, Wayt, Cyrus Active [place] left knee / Community M25.462(ICD-10) Hospital Repository 11/23/2017 Unknown S83.242A - Other tear Cyrus Lord Active [place] of medial meniscus, Community current injury, left Hospital knee, initial Repository encounter / S83.242A(ICD-10) 12/18/2017 Unknown Z98.1 - Arthrodesis Opsitnick, Active [place] status / Jeannine [employer]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[employer] Community Z98.1(ICD-10) Hospital Repository 07/28/2017 Unknown L21.0 - Seborrhea Vellanki, Joceline Active [place] capitis / [facility] L21.0(ICD-10) Hospital Repository PROCEDURES PROCEDURES No Procedure Records FoundRESULTS RESULTS CBC W/DIFF, AUTOMATED Collected: 05/12/2018 Status: F Source: [place] 10:08 AM [facility] REPOSITORY TYPE CODE TESTS RESULT OUT OF RANGE REFERENCE UNITS LAB L100.1000 4.4-11.0 K/mm3 Normal WBC 5.0 LAB L100.1200 4.2-5.4 M/mm3 Normal RBC 4.46 LAB L100.1300 12.0-15.0 g/dl Normal HGB 13.4 LAB L100.1400 37-47 % Normal HCT 40.8 LAB L100.1500 81-99 fL Normal MCV 91.5 LAB L100.1600 27.0-32.0 pg Normal MCH 30.0 LAB L100.1700 32-36 g/gl Normal MCHC 32.8 LAB L100.1810 11.6-14.6 % Normal RDW CV 13.2 LAB L100.1820 35.1-43.9 fl Normal RDW SD 43.7 LAB L100.1900 150-450 K/mm3 Normal PLT 216 LAB L100.2000 6.2-12.0 fl Normal MPV 8.9 LAB L100.2100 47-70 % Normal NEUT% 67.7 LAB L100.2200 19-41 % Normal LY% 23.2 LAB L100.2300 0-10 % Normal MONO% 6.9 LAB L100.2400 0-5 % Normal EO% 1.6 LAB L100.2500 0-1 % Normal BASO% 0.4 LAB L100.2550 0.0-0.9 % Normal IM GRAN % 0.200 Result Comment: IG% - Immature Granulocytes (promyelocytes, myelocytes and metamyelocytes) > 1% indicates that a LEFT SHIFT is Present. LAB L100.2620 2.0-7.7 X10 3/uL Normal Absolute Neut 3.4 LAB L100.2720 0.83-4.51 X10 3/ul Normal Absolute Lymph 1.17 Performed By: #### L100.0100 #### [facility] [place], [address] COMPREHENSIVE METABOLIC Collected: 05/12/2018 Status: F Source: [place] [facility] 10:08 AM [facility] REPOSITORY TYPE CODE TESTS RESULT OUT OF RANGE REFERENCE UNITS LAB L501.0100 74-106 mg/dL High GLU 117 Result Comment: Fasting Glucose result from 100 to 125 mg/dL suggests IMPAIRED HOMEOSTASIS per A.D.A. criteria. Please note revised GLUCOSE reference range effective 2017. LAB L501.1000 7-18 mg/dL High BUN 19 LAB L501.1100 0.55-1.02 mg/dL Normal CREAT,SERUM 0.82 Result Comment: The validity of the calculated GFR AND GFRAA in patients over 70 years has not been determined. Clinical correlation is essential. LAB L501.1110 >60 mL/min Normal EST GFR 77 Result Comment: Non- GFR Calc LAB L501.1115 >60 mL/min Normal EST GFR - AA 93 Result Comment: GFR Calc LAB L501.1300 10-20 RATIO High BUN/CRE 23.1 LAB L501.1500 6.4-8.2 g/dL T Normal PROT 7.3 LAB L501.1800 3.2-5.0 g/dL Normal ALB 4.1 LAB L501.1950 2.2-4.2 g/dL Normal GLOB 3.2 LAB L501.2000 0.9-2.4 RATIO Normal A/G 1.3 LAB L501.2200 8.5-10.1 mg/dL CA Normal 9.0 LAB L501.4100 15-37 U/L Normal AST 24 LAB L501.4305 45-117 U/L Normal ALK P 69 LAB L501.4405 13-56 U/L Normal ALT 48 LAB L501.4600 0.20-1.00 mg/dL T Normal BILI 0.70 LAB L501.5300 136-145 mmol/L NA Normal 141 LAB L501.5600 3.5-5.1 mmol/L K Normal 4.5 LAB L501.5900 98-107 mmol/L CL Normal 104 LAB L501.6100 21.0-32.0 mmol/L Normal CO2 30.0 LAB L501.6200 5-15 Normal GAP 7 Performed By: #### L500.4050, L501.3620 #### [facility] [address] [place], [address] CPK TOTAL, CREATINE Collected: 05/12/2018 Status: F Source: [place] 10:08 AM [facility] REPOSITORY TYPE CODE TESTS RESULT OUT OF RANGE REFERENCE UNITS LAB L501.3620 26-192 U/L Normal CPK TOTAL 98 Performed By: #### L500.4050, L501.3620 #### [facility] [address] [facility] [place], [address] OPERATIVE REPORT - Observed: 04/06/2018 Status: F Source: [place] ENDOSCOPY 7:35 AM [facility] REPOSITORY [facility] Medical Records Department [address] [place] [address] Operative Report - Endoscopy MR#: [id number] Acct: [id number] Name: GABRIEL ZAMUDIO Rep #: [id number] : 1965 52 From: Yared Carroll MD PCP: Ashli Perez MD Status: [facility] Patient Name: Gabriel Zamudio Procedure Date: 04/06/2018 7:09 AM Date of : 1965 Age: 52 Procedure: Colonoscopy Indications: Screening for colorectal malignant neoplasm Providers: Yared Carroll MD Referring MD: Yared Carroll MD Medicines: See the Anesthesia note for documentation of the administered medications Patient Profile: Last Colonoscopy: more than 10 years ago. Complications: No immediate complications. Procedure: Pre-Anesthesia Assessment: - Prior to the procedure, a History and Physical was performed, and patient medications and allergies were reviewed. The patient's tolerance of previous anesthesia was also reviewed. The risks and benefits of the procedure and the sedation options and risks were discussed with the patient. All questions were answered, and informed consent was obtained. Prior Anticoagulants: The patient has taken no previous anticoagulant or antiplatelet agents. ASA Grade Assessment: III - A patient with severe systemic disease. After reviewing the risks and benefits, the patient was deemed in satisfactory condition to undergo the procedure. After I obtained informed consent, the scope was passed under direct vision. Throughout the procedure, the patient's blood pressure, pulse, and oxygen saturations were monitored continuously. The Colonoscope was introduced through the anus and advanced to the cecum, identified by appendiceal orifice and ileocecal valve. The colonoscopy was performed without difficulty. The patient tolerated the procedure well. The quality of the bowel preparation was good. The ileocecal valve was photographed. Scope In: 7:10:49 AM Scope Withdrawal Time 0 hours 10 minutes 20 seconds Scope Out: 7:26:52 AM Total Procedure Duration Time 0 hours 16 minutes 3 seconds Findings: Hemorrhoids were found on perianal exam. A 10 mm polyp was found in the cecum. The polyp was semi-sessile. The polyp was removed with a hot snare. Resection and retrieval were complete. To prevent bleeding post-intervention, one hemostatic clip was successfully placed. There was no bleeding at the end of the procedure. A few diverticula were found in the sigmoid colon and descending colon. Impression: - Hemorrhoids found on perianal exam. - One 10 mm polyp in the cecum, removed with a hot snare. Resected and retrieved. Clip was placed. - Diverticulosis in the sigmoid colon and in the descending colon. Recommendation: - Discharge patient to home. - Resume previous diet. - Continue present medications. - Repeat colonoscopy in 3 years for surveillance based on pathology results. - Telephone my office for pathology results in 1 week. Procedure Code(s): --- Professional --- 10610, Colonoscopy, flexible; with removal of tumor(s), polyp(s), or other lesion(s) by snare technique Diagnosis Code(s): --- Professional --- Z12.11, Encounter for screening for malignant neoplasm of colon K64.9, Unspecified hemorrhoids D12.0, Benign neoplasm of cecum K57.30, Diverticulosis of large intestine without perforation or abscess without bleeding CPT copyright 2017 [employer]. All rights reserved. The codes documented in this report are preliminary and upon resident engineer review may be revised to meet current compliance requirements. Yared Carroll MD 04/06/2018 7:34:44 AM This report has been signed electronically. Number of Addenda: 0 Note Initiated On: 04/06/2018 7:09 AM 04/06/1834 Date Yared Carroll MD Cosigner Signature: Date (if indicated) CC: Ashli Perez MD; Yared Carroll MD Date Dictated: 04/06/18708 Date Transcribed: Molder Sweep: WESLEY Signed OPERATIVE REPORT - Observed: 04/06/2018 Status: F Source: [place] [facility] 7:32 AM [facility] Medical Records Department [address] [place] [address] Operative Report - Endoscopy MR#: [id number] Acct: [id number] Name: GABRIEL ZAMUDIO Rep #: [id number] : 1965 52 From: Yared Carroll MD PCP: Ashli Perez MD Status: [facility] Patient Name: Gabriel Zamudio Procedure Date: 04/06/2018 6:55 AM Date of : 1965 Age: 52 Procedure: Upper GI endoscopy Indications: Esophageal reflux Providers: Yared Carroll MD Referring MD: Yared Carroll MD Medicines: See the Anesthesia note for documentation of the administered medications Complications: No immediate complications. Procedure: Pre-Anesthesia Assessment: - Prior to the procedure, a History and Physical was performed, and patient medications and allergies were reviewed. The patient's tolerance of previous anesthesia was also reviewed. The risks and benefits of the procedure and the sedation options and risks were discussed with the patient. All questions were answered, and informed consent was obtained. Prior Anticoagulants: The patient has taken no previous anticoagulant or antiplatelet agents. ASA Grade Assessment: III - A patient with severe systemic disease. After reviewing the risks and benefits, the patient was deemed in satisfactory condition to undergo the procedure. After obtaining informed consent, the endoscope was passed under direct vision. Throughout the procedure, the patient's blood pressure, pulse, and oxygen saturations were monitored continuously. The gastroscope was introduced through the mouth, and advanced to the second part of duodenum. The upper GI endoscopy was accomplished without difficulty. The patient tolerated the procedure well. Scope In: 7:02:36 AM Scope Out: 7:07:41 AM Total Procedure Duration Time 0 hours 5 minutes 5 seconds Findings: The Z-line was regular and was found 39 cm from the incisors. Biopsies were taken with a cold forceps for histology. A small hiatal hernia was present. Diffuse mild inflammation was found in the gastric antrum. Biopsies were taken with a cold forceps for histology. The examined duodenum was normal. Impression: - Z-line regular, 39 cm from the incisors. Biopsied. Mid esophagus biopsied for possible eosinophilic esophagitis - Small hiatal hernia. - Chronic gastritis. Biopsied. - Normal examined duodenum. Recommendation: - Discharge patient to home. - Resume previous diet. - Continue present medications. - Telephone my office for pathology results in 1 week. Procedure Code(s): --- Professional --- 56128, Esophagogastroduodenoscopy, flexible, transoral; with biopsy, single or multiple Diagnosis Code(s): --- Professional --- K44.9, Diaphragmatic hernia without obstruction or gangrene K29.50, Unspecified chronic gastritis without bleeding K21.9, Gastro-esophageal reflux disease without esophagitis CPT copyright 2017 [employer]. All rights reserved. The codes documented in this report are preliminary and upon resident engineer review may be revised to meet current compliance requirements. Yared Carroll MD 04/06/2018 7:31:59 AM This report has been signed electronically. Number of Addenda: 0 Note Initiated On: 04/06/2018 6:55 AM 04/06/18 0732 Date Yared Carroll MD Cosign Signature: Date (if indicated) CC: Ashli Perez MD; Yared Carroll MD Date Dictated: 04/06/18 0655 Date Transcribed: Molder Sweep: WESLEY Signed EGD ([facility] SITE) Observed: 04/06/2018 Status: F Source: [place] 7:00 AM [facility] REPOSITORY Patient: GABRIEL ZAMUDIO : 1965 (52/F) Acct Num: [id number] Phys: Glen STEINER,Yared Unit Num: [id number] Loc: EN Specimen: [id number] Received: 04/06/18922 Spec Type: EGD BIOPSY TISSUES 1 TISSUES: A. Gastric mucous membrane B. Esophageal mucous membrane C. Esophageal mucous membrane D. Cecum, NOS COMMENT A. The results of immunohistochemistry for Helicobacter pylori will be reported separately ([id number]). B. Alcian blue/PAS stain with matched control is used in the evaluation of the specimen. GROSS DESCRIPTION A - Received in fixative is one container labeled with the patient's name and designated biopsy gastric antrum. The specimen consists of two irregular fragments of light mcneil soft tissue that in aggregate measure 0.3 x 0.3 x 0.1 cm. The specimen is totally submitted in one cassette. B - Received in fixative is one container labeled with the patient's name and designated biopsy distal esophagus. The specimen consists of multiple irregular fragments of light mcneil soft tissue that in aggregate measure 0.4 x 0.2 x 0.1 cm. The specimen is totally submitted in one cassette. C - Received in fixative is one container labeled with the patient's name and designated biopsy mid esophagus. The specimen consists of multiple irregular fragments of light mcneil soft tissue that in aggregate measure 0.3 x 0.3 x 0.1 cm. The specimen is totally submitted in one cassette. D - Received in fixative is one container labeled with the patient's name and designated cecum polyp. The specimen consists of multiple irregular fragments of light mcneil soft tissue mixed with fecal material that in aggregate measure 1 x 0.3 x 0.2 cm. The specimen is totally submitted in one cassette. / SJ:sathya TC:1 CPT: 63806 x4, 12188 HEADER OPERATION: Colonoscopy, [place] PRE-OP DIAGNOSIS: GERD, screening TISSUE SUBMITTED: A - Biopsy gastric antrum, B - Biopsy distal esophagus, C - Biopsy mid esophagus, D - Polyp cecum MICROSCOPIC DESCRIPTION Slides are reviewed. A. The specimen shows fragments of gastric mucosa with chronic inflammatory cell infiltrates in the lamina propria consisting of lymphocytes and plasma cells, consistent with mild chronic gastritis. MICROSCOPIC DIAGNOSIS A. Gastric antrum, biopsy: Mild gastritis. See microscopic description and comment. B. Distal esophagus, biopsy: Fragments of gastroesophageal mucosa with chronic inflammation. Intestinal metaplasia (goblet cell metaplasia) is not identified. See comment. C. Mid esophagus, biopsy: Fragments of squamous epithelium, no pathologic diagnosis. D. Cecum polyp, biopsy: Fragments of tubular adenoma. Fragments of fecal material. SJ:sathya 04/07/18 Signed Foster Boles MD 04/08/18 <signature on file> Performed By: #### PEGD #### [facility] [address] [place], [address] IMMUNOHISTOCHEMISTRY Observed: 04/06/2018 Status: F Source: [place] 12:00 AM [facility] REPOSITORY Patient: GABRIEL ZAMUDIO : 1965 (52/F) Acct Num: [id number] Phys: Glen STEINER,Yared Unit Num: [id number] Loc: EN Specimen: [id number] Received: 04/07/18 1142 Spec Type: IMMUNO TISSUES 1 TISSUES: A. Stomach, NOS SPECIMEN INFORMATION: Tissue Source: A - Gastric antrum biopsy Clinical Info: GERD Specimen Number: [id number] CPT code: 84233 METHODOLOGY: Deparaffinized sections of prefer/formalin-fixed tissue or PAP/DQ stained slides are incubated with monoclonal/polyclonal antibodies/oligonucleotide probes. Localization is made via biotin free immunoperoxidase method. Appropriate controls are performed and reacted as expected. Results on target cell population are indicated in the following table: RESULTS: ANTIBODY / CLONE RESULT Block A H Pylori (polyclonal) negative These tests were developed and their performance characteristics determined by [facility]. They may not have been cleared or approved by the U.S. Food and Drug Administration. The FDA has determined that such clearance or approval is not necessary. INTERPRETATION: A. Gastric antrum, biopsy: Negative for Helicobacter pylori organisms. SJ:sathya 04/08/18 PHYSICIAN AND INSTITUTION [facility] [address], [place] [address] Signed Foster Boles MD 04/08/18 <signature on file> Performed By: #### PIMM #### [facility] [address] [place] [address]. [place], [place], [address] SURGERY VISIT REPORT Observed: 03/08/2018 Status: F Source: [place] 5:41 PM [facility] REPOSITORY [facility] [address] [place] [address]. [address] [place], [place] [address] OFFICE VISIT Date of Service: 03/08/18 MR#: [id number] Acct: [id number] Name: GABRIEL ZAMUDIO Rep #: [id number] : 1965 Provider: Yared Carroll MD Age/Sex: 52/F Location: [facility] Status: Signed Intake Vital Signs03/08/18 Height 5 ft 5 in 03/08/18 Weight: 215 lb 03/08/18 Body Mass Index (BMI) 35.7 Intake Visit Reasons: Schedule Cscope Chief Complaint: Left Knee Pain Allergies vancomycin Allergy (Intermediate, Verified 03/08/18 15:20) RED MAN'S SYNDROME Medications Folic Acid 2 mg PO QHS 03/21/13 [History Confirmed 03/08/18] Methotrexate 15 mg PO SA 03/21/13 [History Confirmed 03/08/18] Valsartan/Hydrochlorothiazide [Diovan Hct 320-12.5 MG Tab] 1 tab PO QHS 03/21/13 [History Confirmed 03/08/18] traZODone [Desyrel] 50 mg PO QHS 03/21/13 [History Confirmed 03/08/18] leucovorin tablet 25 mg PO MCKEON 10/24/14 [History Confirmed 03/08/18] Oxycodone HCl/Acetaminophen [Percocet 5-325] 1 tab PO Q4H PRN PRN 05/01/16 [History Confirmed 02/18/18] Ivig 60 gm IV X1 11/23/17 [History Confirmed 03/08/18] Omeprazole 40 mg PO DAILY PRN 11/23/17 [History Confirmed 02/18/18] [facility] Medical History Screening for intestinal cancer (Acute) GERD (gastroesophageal reflux disease) (Acute) Left knee pain (Acute) Hypertensive urgency (Acute) Dermatomyositis (Chronic) Hypertension (Chronic) History of stroke (Chronic) Surgical History S/P cervical spinal fusion (Acute) S/P section (Acute) S/P cholecystectomy (Acute) S/P left knee surgery (Acute) Family History Mother Hypertension Social History Smoking Status: Never smoker alcohol intake: current alcohol intake frequency: holidays/special occasions only HPI HPI HPI: GABRIEL ZAMUDIO, is a 52 F who presents to the office today for surgical consultation regarding screening colonoscopy. Her last colonoscopy was 12 years ago. She has intractable gastroesophageal reflux disease as well. 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 She has had a questionable previous history of a bleeding diverticulum in 2005. She had a hemorrhagic stroke 10 years ago. She states that she has some memory problems particularly with names. She has had a recent CT scan suggesting a hiatal hernia but no acute bowel inflammation. In the past there is been some question about dark stools or bright red blood. Patient occasionally has anal pain. 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 She is maintained on immunosuppressive's methotrexate. The patient was referred by her primary care physician Dr. Lucy Perez and a written copy of my surgical consult recommendations will be returned to her Patient does not have a family history of colon cancer. She has had years worth of gastroesophageal reflux disease symptoms with heartburn. She has never had an upper endoscopy. She is on chronic omeprazole therapy ROS General General: Yes fatigue; no weight change, appetite, colon cancer, breast cancer or weakness HEENT HEENT: No difficulty swallowing, eye injury, eye surgery, swollen glands or hoarseness Endo Endocrine: No thyroid disease, diabetes mellitus, thyroid cancer, Hair loss, heat intolerance or cold intolerance Skin Skin: No rash or changing moles Breast Breast: No left breast lump, right breast lump, nipple discharge, breast pain, abnormal mammogram, abnormal US or breast enlargement Musc Musculoskeletal: Yes back problems and gout; no arthritis, rheumatoid arthritis or joint pain Cardio Cardiovascular: Yes high blood pressure; no murmur, pacemaker, heart disease, atrial fibrillation, heart attack, heart stent, palpitations, shortness of breat with exertion or chest pain Psych Psychiatric: Yes depression and anxiety; no hearing voices Resp Respiratory: No shortness of breath, No sleep apnea, No cough, No COPD, No asthma, No emphysema, No wheezing Gastro Gastrointestinal: Yes blood in stool, Yes acid reflux, Yes hemorrhoids, No abdominal pain, No nausea or vomiting, No diarrhea, No constipation, No ulcers, No gallbladder problem, Yes black,tarry stools Kailash Hematologic: No blood thinners, No blood disorders, No bleeding, No anemia, No blood clots Neuro Neurologic: Yes numbness, Yes tingling, No system reviewed and no additional complaints, except as docu, No as per HPI, No abnormal walking, No abnormal hearing, No abnormal movements, No abnormal speech, No behavioral changes, No burning sensations, No confusion, No seizure-like activity, No unsteadiness, No dizziness, No localized weakness, No frequent falls, No headache(s), No lack of coordination, No loss of vision, No memory loss, No other visual disturbances, No radiating pain, No restless legs, No sensory deficit, No fainting, No tremor(s), No weakness, No other Exam Const General: cooperative, comfortable, no acute distress Nutritional Appearance: overweight Orientation: alert, awake [facility] Head: normal to inspection Eyes General: appearance normal, both eyes and all related structures Chest Breast Palpation: No nipple discharge Resp Effort AND Inspection: normal respiratory effort Auscultation: clear to auscultation bilaterally Cardio Rate: regular rate Rhythm: regular rhythm Heart Sounds: no murmurs GI Palpation: soft, no hepatosplenomegaly Auscultation: normal bowel sounds Neuro Cranial Nerves: CN's II-XI intact bilaterally Extrem Other: Minimal bilateral extremity edema, nonpitting Psych Affect: normal affect Assessment AND Plan Problems 1. Gastroesophageal reflux disease, esophagitis presence not specified K21.9 2. Screening for intestinal cancer Z12.10 Plan I have recommended the patient a esophagogastroduodenoscopy with possible biopsy as well as a colonoscopy with possible biopsy or polypectomy is indicated. She is aware of the technique, benefits, risks, alternatives. She has had an opportunity to ask and have questions answered. She is at higher risk. We will proceed with monitored anesthesia care. I very much appreciate the kind opportunity of assisting with her surgical care. Cc: Dr. Chris Carroll M.D., F.A.C.S. Coding Level of Care Code Off vis,new,level 2 Diagnoses Gastroesophageal reflux disease, esophagitis presence not specified K21.9 Esophagitis presence: esophagitis presence not specified Screening for intestinal cancer Z12.10 03/08/18 1741 <Electronically signed by Yared Carroll MD> Date Yared Carroll MD Cosigner Signature: Date (if applicable) CC: Ashli Perez MD ABDOMEN/PELVIS WITH Observed: 02/19/2018 Status: F Source: [place] CONTRAST 3:33 PM [facility] REPOSITORY [facility] Imaging Services [address] [place] [address] Abdomen/Pelvis WITH Contrast MR#: [id number] Acct: [id number] Name: GABRIEL ZAMUDIO Rep #: [id number] : 1965 F 52 From: Cyrus Ortega MD PCP: Ashli Perez MD Status: REG CLI Study: Abdomen/Pelvis WITH Contrast Date of Exam: 02/19/18 Exam# [id number] Ordering Dr: Ashli Perez MD HISTORY: R/o underlying malignancy, occasional rectal bleeding. Hx dermatomyositis, cholecystectomy, . TECHNIQUE: Helically acquired images were obtained of the abdomen and pelvis following oral and IV contrast. IV Contrast dosage and agent: 100 cc Isovue-300 contrast. Oral contrast: Yes.. COMPARISON: 02/24/2015 FINDINGS: Widespread punctate calcifications within subcutaneous fat and this correlates with known history of dermatomyositis. The pattern is stable. Fat-containing umbilical hernia, also present previously Lung bases: No pleural effusion. Small hilar hernia. Cholecystectomy with surgical clips within the gallbladder fossa. No biliary dilatation. Fatty liver without suspicious lesion. The spleen and pancreas show no CT abnormality. Bilateral renal opacification without hydronephrosis or suspicious renal lesion. Left renal small cortical and parapelvic cysts the adrenals are not enlarged. Abdominal aorta and IVC are unremarkable. No ascites or retroperitoneal lymphadenopathy. GI tract: No obstruction. The appendix is not visualized. Distal colonic diverticula without diverticulosis. Pelvis: Anteverted uterus which is normal in size. The pelvis shows no free fluid or lymphadenopathy. Urinary bladder is poorly distended. Osseous structures: No suspicious lesion. Degenerative disc disease and spondylosis of the lumbosacral junction. CT/Abdomen/Pelvis WITH Contrast IMPRESSION: 1. Diverticulosis coli without findings of diverticulitis or other acute disease. 2. No lymphadenopathy or suspicious lesion. 3. Chronic changes include fatty liver, small hiatal hernia, and fat-containing umbilical hernia. 4. Benign changes of dermatomyositis. Individualized dose optimization techniques were used for this CT. at 0016 Reported and signed by: Cyrus Ortega MD Electronically Signed: Cyrus Ortega, at 0:14 EDT Tel , Service support , CC: Ashli Perez MD Molder Sweep: Signed CHEST WITH CONTRAST Observed: 02/19/2018 Status: F Source: [place] 3:33 PM [facility] REPOSITORY [facility] Imaging Services [address] [place] [address] Chest WITH Contrast MR#: [id number] Acct: [id number] Name: GABRIEL ZAMUDIO Miri Rep #: [id number] : 1965 F 52 From: Cyrus Ortega MD PCP: Ashli Perez MD Status: REG CLI Study: Chest WITH Contrast Date of Exam: 02/19/18 Exam# [id number] Ordering Dr: Ashli Perez MD HISTORY: R/o underlying malignancy, occasional rectal bleeding. Hx dermatomyositis, cholecystectomy, . TECHNIQUE: Helically acquired images were obtained of the chest following IV contrast. A radiation dose optimization technique was used for this scan. IV Contrast dosage and agent: 100 cc Isovue-300 contrast. COMPARISON: Two-view chest exam 02/23/2013 FINDINGS: The lung parenchyma appears clear. Normal lung volumes. No pulmonary infiltrate, pulmonary nodule, or mass. No bronchiectasis or interstitial lung disease. No pleural effusion or significant pleural disease. Thoracic aorta is normal in caliber. No pericardial effusion. No hilar, mediastinal, or axillary lymph node enlargement seen. Small hiatal hernia. Fatty liver. Cholecystectomy. Numerous widespread punctate calcifications within the subcutaneous fat and this correlates with known dermatomyositis. CT/Chest WITH Contrast IMPRESSION: 1. No suspicious lesion or acute disease. 2. Chronic findings include small hiatal hernia and fatty liver. 3. Benign changes of dermatomyositis. Individualized dose optimization techniques were used for this CT. at 0024 Reported and signed by: Cyrus Ortega MD Electronically Signed: Cyrus Ortega, at 0:22 EDT Tel , Service support , CC: Ashli Perez MD Molder Sweep: Signed ORTHOPEDIC VISIT Observed: 02/18/2018 Status: F Source: [place] 10:36 AM [facility] [address] [place] [address] OFFICE VISIT Date of Service: 02/18/18 MR#: [id number] Acct: [id number] Name: GABRIEL ZAMUDIO Miri Rep #: [id number] : 1965 Provider: Kristen Bhardwaj DO Age/Sex: 52/F Location: [facility] [place]: Signed Intake Intake Visit Reasons: FU LT LT KNEE SCOPE 12/02/17 Chief Complaint: Left Knee Pain Intensive Care Medicine Specialist Required: No Accompanied by: None Is patient in pain?: Yes (left knee) Pain scale (1-10): 4 Allergies vancomycin Allergy (Intermediate, Verified 11/23/17 17:59) RED MAN'S SYNDROME Medications Folic Acid 2 mg PO QHS 03/21/13 [History Confirmed 02/18/18] Methotrexate 15 mg PO SA 03/21/13 [History Confirmed 02/18/18] Valsartan/Hydrochlorothiazide [Diovan Hct 320-12.5 MG Tab] 1 tab PO QHS 03/21/13 [History Confirmed 02/18/18] traZODone [Desyrel] 50 mg PO QHS 03/21/13 [History Confirmed 02/18/18] leucovorin tablet 25 mg PO MCKEON 10/24/14 [History Confirmed 02/18/18] Oxycodone HCl/Acetaminophen [Percocet 5-325] 1 tab PO Q4H PRN PRN 05/01/16 [History Confirmed 02/18/18] Amlodipine [Norvasc] 5 mg PO QHS 04/09/17 [History Confirmed 02/18/18] Clonidine HCl [Catapres] 0.2 mg PO PRN PRN 04/09/17 [History Confirmed 02/18/18] Escitalopram Oxalate [Lexapro] 5 mg PO QHS 11/19/17 [History Confirmed 02/18/18] Ivig 60 gm IV X1 11/23/17 [History Confirmed 02/18/18] Omeprazole 40 mg PO DAILY PRN 11/23/17 [History Confirmed 02/18/18] PFSH Social History Smoking Status: Never smoker HPI FU LT LT KNEE SCOPE 12/02/17: Details: GABRIEL ZAMUDIO is a 52 year old F here today for a follow up on her left knee scope done 12-02-17. Patient states her pain is a 4/10 today and describes as a stabbing pain at the medial part of her knee if she is weight bearing and an ache around the back part of her knee. Patient states that she does hear grinding and popping and has swelling occasionally. Patient is still taking percocet for the pain. Patient states that if she has any unusual movement it seems to increase her pain. Sleeping and elevation seem to help relieve the pain. Denies numbness or tingling. Ortho Exam Left Knee Skin/Wound: Yes CDI Contralateral Normal: Yes Swelling: Yes Homans Sign: No 2+: Effusion Knee ROM: Yes ROM-Extension -20 to 0, Yes ROM-Flexion 0-140 (100) Examination: Yes Pain with flexion, Yes med jt line tenderness Office Procedures Ortho Injections Injections Yes Knee Left Details: Obtained consent for injection. Under sterile conditions, injected the patients left knee with a 10cc cocktail of 8cc bupivacaine and 2cc kenalog . The patient tolerated the injection well without any noted complication. Patient should call our office if redness develops, pain worsens or if they have any concerns. Office Meds Kenalog Performing Provider: Kristen Bhardwaj DO Administered by: Kristen Bhardwaj DO on 02/18/18 10:32 Dose Route Admin Location Lot Number Expiration DateNDC Human Resource Management Instructor 80 mg Intra-Articularleft knee [id number] 03/20/19 2864-5903-90 [employer] Assessment AND Plan 1. Osteoarthritis of left knee, unspecified osteoarthritis type M17.12 Plan Explained that she is going to have pain for three months post op due to the swelling cycle and OA. We will order a medial pricing associate brace for her and discussed the risks and benefits of an injection today, patient agrees. Follow up in 3 months if needed or sooner if pain, swelling, numbness or associated symptoms, or concerns develop. All questions answered. Patient in agreement of plan. Orders Orders: Medications Discontinued: Kenalog (triamcinolone acetonide) Zevhtgcy20 mg (2 mL) Intra-Articular ONCE 2 mL 0RF NS nued Reason: Office Medication has been Docu mented as given Coding Level of Care Code Off vis,est,level 3 Diagnoses Osteoarthritis of left knee, unspecified osteoarthritis type M17.12 Osteoarthritis type: unspecified Additional Codes quality tester.knee ([id number]) 02/18/18 1036 <Electronically signed by Kristen Bhardwaj DO> Date Kristen Bhardwaj DO Cosigner Signature: Date (if applicable) CC: PATRICIA W/DIFF, AUTOMATED Collected: 02/15/2018 Status: F Source: [place] 9:48 AM [facility] REPOSITORY TYPE CODE TESTS RESULT OUT OF RANGE REFERENCE UNITS LAB L100.1000 4.4-11.0 K/mm3 Normal WBC 5.9 LAB L100.1200 4.2-5.4 M/mm3 Normal RBC 4.80 LAB L100.1300 12.0-15.0 g/dl Normal HGB 14.6 LAB L100.1400 37-47 % Normal HCT 43.3 LAB L100.1500 81-99 fL Normal MCV 90.2 LAB L100.1600 27.0-32.0 pg Normal MCH 30.4 LAB L100.1700 32-36 g/gl Normal MCHC 33.7 LAB L100.1810 11.6-14.6 % Normal RDW CV 13.4 LAB L100.1820 35.1-43.9 fl Normal RDW SD 43.8 LAB L100.1900 150-450 K/mm3 Normal PLT 271 LAB L100.2000 6.2-12.0 fl Normal MPV 8.6 LAB L100.2100 47-70 % Normal NEUT% 65.4 LAB L100.2200 19-41 % Normal LY% 25.8 LAB L100.2300 0-10 % Normal MONO% 6.9 LAB L100.2400 0-5 % Normal EO% 1.4 LAB L100.2500 0-1 % Normal BASO% 0.3 LAB L100.2550 0.0-0.9 % Normal IM GRAN % 0.200 Result Comment: IG% - Immature Granulocytes (promyelocytes, myelocytes and metamyelocytes) > 1% indicates that a LEFT SHIFT is Present. LAB L100.2620 2.0-7.7 X10 3/uL Normal Absolute Neut 3.9 LAB L100.2720 0.83-4.51 X10 3/ul Normal Absolute Lymph 1.53 Performed By: #### L100.0100 #### [facility] [address] [place], [place], [address] COMPREHENSIVE METABOLIC Collected: 02/15/2018 Status: F Source: [facility] 9:48 AM [facility] REPOSITORY TYPE CODE TESTS RESULT OUT OF RANGE REFERENCE UNITS LAB L501.0100 74-106 mg/dL High GLU 115 Result Comment: Fasting Glucose result from 100 to 125 mg/dL suggests IMPAIRED HOMEOSTASIS per A.D.A. criteria. Please note revised GLUCOSE reference range effective 2017. LAB L501.1000 7-18 mg/dL High BUN 19 LAB L501.1100 0.55-1.02 mg/dL Normal CREAT,SERUM 0.94 Result Comment: The validity of the calculated GFR AND GFRAA in patients over 70 years has not been determined. Clinical correlation is essential. LAB L501.1110 >60 mL/min Normal EST GFR 66 Result Comment: Non- GFR Calc LAB L501.1115 >60 mL/min Normal EST GFR - AA 79 Result Comment: GFR Calc LAB L501.1300 10-20 RATIO High BUN/CRE 20.1 LAB L501.1500 6.4-8.2 g/dL T Normal PROT 7.7 LAB L501.1800 3.2-5.0 g/dL Normal ALB 4.0 LAB L501.1950 2.2-4.2 g/dL Normal GLOB 3.7 LAB L501.2000 0.9-2.4 RATIO Normal A/G 1.1 LAB L501.2200 8.5-10.1 mg/dL CA Normal 9.4 LAB L501.4100 15-37 U/L High AST 47 LAB L501.4305 45-117 U/L Normal ALK P 80 LAB L501.4405 13-56 U/L High ALT 65 LAB L501.4600 0.20-1.00 mg/dL T Normal BILI 0.60 LAB L501.5300 136-145 mmol/L NA Normal 142 LAB L501.5600 3.5-5.1 mmol/L K Normal 4.6 LAB L501.5900 98-107 mmol/L CL Normal 102 LAB L501.6100 21.0-32.0 mmol/L Normal CO2 31.0 LAB L501.6200 5-15 Normal GAP 9 Performed By: #### L500.4050, L501.3620 #### [facility] [address] [place], [place], [id number] CPK TOTAL, CREATINE Collected: 02/15/2018 Status: F Source: [place] 9:48 AM [facility] REPOSITORY TYPE CODE TESTS RESULT OUT OF RANGE REFERENCE UNITS LAB L501.3620 26-192 U/L Normal CPK TOTAL 132 Performed By: #### L500.4050, L501.3620 #### [facility] [address] [place], [address] ALDOLASE Collected: 02/15/2018 Status: F Source: [place] 9:48 AM [facility] REPOSITORY TYPE CODE TESTS RESULT OUT OF RANGE REFERENCE UNITS LAB L3100.7000 3.3-10.3 U/L Normal ALDOLASE 2030 6.9 Result Comment: Performed at: - [facility] [address] [id number] [place]: Nole Londono PhD, Phone: [phone] Performed By: #### L3100.7000 #### [facility] (refer to report for specific site) refer to report for address and phone number PT D/C SUMMARY (1) Observed: 01/12/2018 Status: F Source: [place] 7:57 AM [facility] REPOSITORY [facility]. [address] [place], [place] [address] Fax REHABILITATION SERVICES DISCHARGE SUMMARY MR#: [id number] Acct: [id number] Name: GABRIEL ZAMUDIO Rep #: [id number] : 1965 52 From: Azar Oneil PT, Cert. MDT, OCS Referring DrJesse: Kristen Bhardwaj DO Status: REG RCR Insurance: [facility] SELF PAY INSURANCE HP - PT D/C Summary It has been my pleasure to treat GABRIEL ZAMUDIO under orders from Kristen Bhardwaj DO, for the diagnosis of LEFT MENISCUS REPAIR for a total of 10 visit(s). Discharge Date: 01/08/18 Please see the following information for a summary of their discharge status. - Subjective Subjective: Doing well ,.Seen DR happy with progress D/C to HEP is okay plan to workout at [employer]. RTW thursday. - Pain Left Knee Pain Intensity (Out of 10): 0 - Overall Improvement % Improvement: 75 - Objective Objective/Function: POSTURE: WFL. GAIT: normal ramón. MMT: quads/hams 4/5/hip 4-/5/ankle 4/f. AROM: 0-125 degrees. STAIRS: alternating with rail - Goals Goal 1:: Independant with HEP Goal Progress: Goal Met Goal 2:: Improve gait with normal ramón stance and swing phase symmtrical right to left . Goal Progress: Goal Met Goal 3:: Patient improve AROM knee flexion 130 degrees to improve stairs Goal 4:: Patient to improve strength quads/hams to 4/5 to improve function and ADL'S Goal Progress: Goal Met Goal 5:: Patient return job demands ,housework tasks with min limiations Goal Progress: Goal Met Goal 6:: Patient to improve LFES score to by 20-25min to improve QOL. Goal Progress: Goal Met - Plan Plan: D/C HEP AND GYM EX'S - D/C Information Discharge Comments: [facility]P If there are questions or concerns regarding this patient's physical therapy, please feel free to call me at [phone]. Thank you for the referral of this patient. Sincerely, Azar Oneil PT, <Electronically signed by Azar Oneil PT, Cert. MDT, OCS> 01/12/18 0757 CC: Willi Appiah; Kristen Bhardwaj DO JLA Signed ORTHOPEDIC VISIT Observed: 01/05/2018 Status: F Source: [place] REPORT 3:04 PM [facility] Orthopaedics AND Sports Medicine [address] [place] [address] OFFICE VISIT Date of Service: 01/05/18 MR#: [id number] Acct: [id number] Name: GABRIEL ZAMUDIO Rep #: [id number] : 1965 Provider: Kristen Bhardwaj DO Age/Sex: 52/F [place] [facility] [place]: Signed Intake Intake Visit Reasons: LEFT KNEE Chief Complaint: Left Knee Pain Is patient in pain?: Yes Pain scale (1-10): 1 Allergies vancomycin Allergy (Intermediate, Verified 11/23/17 17:59) RED MAN'S SYNDROME Medications Folic Acid 2 mg PO QHS 03/21/13 [History Confirmed 12/28/17] Methotrexate 15 mg PO SA 03/21/13 [History Confirmed 12/28/17] Valsartan/Hydrochlorothiazide [Diovan Hct 320-12.5 MG Tab] 1 tab PO QHS 03/21/13 [History Confirmed 12/28/17] traZODone [Desyrel] 50 mg PO QHS 03/21/13 [History Confirmed 12/28/17] leucovorin tablet 25 mg PO MCKEON 10/24/14 [History Confirmed 12/28/17] Oxycodone HCl/Acetaminophen [Percocet 5-325] 1 tab PO Q4H PRN PRN 05/01/16 [History Confirmed 12/28/17] predniSONE tablet 20 mg PO PRN PRN 08/21/16 [History Confirmed 12/28/17] Amlodipine [Norvasc] 5 mg PO QHS 04/09/17 [History Confirmed 12/28/17] Clonidine HCl [Catapres] 0.2 mg PO PRN PRN 04/09/17 [History Confirmed 12/28/17] Escitalopram Oxalate [Lexapro] 5 mg PO QHS 11/19/17 [History Confirmed 12/28/17] Ivig 60 gm IV X1 11/23/17 [History Confirmed 12/28/17] Omeprazole 40 mg PO DAILY PRN 11/23/17 [History Confirmed 12/28/17] Hydrocodone Bitart/Apap 5-325 [[place] 5MG-325MG] 1 - 2 tab PO Q6H PRN PRN 5 Days #40 tab 12/02/17 [Rx Confirmed 12/28/17] PFSH Social History Smoking Status: Never smoker HPI LEFT KNEE: Details: GABRIEL ZAMUDIO is a 52 year old F here today for f/u 12/02 left lateral meniscus repair, she is fwb with her brace opened to extension. She would like to rtw this weekend. She had increased pain after thursday PT session when she was passively flexed beyond comfort. She has good rom today, minimal swelling. Denies numbness, tingling or other associated symptoms. She takes otc nsaids prn. . Ortho Exam Left Knee Date of Surgery: 12/02/17 Skin/Wound: Yes CDI, Yes healed Contralateral Normal: Yes Swelling: Yes Homans Sign: No Knee ROM: Yes ROM-Extension -20 to 0, Yes ROM-Flexion 0-140 (100) Examination: Yes Pain with flexion Quad Atrophy: Yes Assessment AND Plan 1. Orthopedic aftercare Z47.89 Plan She has good rom today, no calf pain. She can rtw with a hinged brace that we gave a prescription for brace and encouraged returning to exercising, using pain as her guide. Follow up in 6wks or sooner if pain, swelling, numbness or associated symptoms, or concerns develop. All questions answered. Patient in agreement of plan. Coding Level of Care Code Global Post Op Diagnoses Orthopedic aftercare Z47.89 01/05/18 1504 <Electronically signed by Kristen Bhardwaj DO> Date Kristen Bhardwaj DO Cosigner Signature: Date (if applicable) CC: ORTHOPEDIC VISIT Observed: 12/31/2017 Status: F Source: [place] REPORT 10:22 AM [facility] REPOSITORY [facility] Orthopaedics AND Sports Medicine [address] [place] [address] OFFICE VISIT Date of Service: 12/15/17 MR#: [id number] Acct: [id number] Name: GABRIEL ZAMUDIO Miri Rep #: [id number] : 1965 Provider: Kristen Bhardwaj DO Age/Sex: 52/F [place] [facility] [place]: Signed Intake Intake Visit Reasons: LEFT KNEE Chief Complaint: Left Knee Pain Allergies vancomycin Allergy (Intermediate, Verified 11/23/17 17:59) RED MAN'S SYNDROME Medications Folic Acid 2 mg PO QHS 03/21/13 [History Confirmed 12/28/17] Methotrexate 15 mg PO SA 03/21/13 [History Confirmed 12/28/17] Valsartan/Hydrochlorothiazide [Diovan Hct 320-12.5 MG Tab] 1 tab PO QHS 03/21/13 [History Confirmed 12/28/17] traZODone [Desyrel] 50 mg PO QHS 03/21/13 [History Confirmed 12/28/17] leucovorin tablet 25 mg PO MCKEON 10/24/14 [History Confirmed 12/28/17] Oxycodone HCl/Acetaminophen [Percocet 5-325] 1 tab PO Q4H PRN PRN 05/01/16 [History Confirmed 12/28/17] predniSONE tablet 20 mg PO PRN PRN 08/21/16 [History Confirmed 12/28/17] Amlodipine [Norvasc] 5 mg PO QHS 04/09/17 [History Confirmed 12/28/17] Clonidine HCl [Catapres] 0.2 mg PO PRN PRN 04/09/17 [History Confirmed 12/28/17] Escitalopram Oxalate [Lexapro] 5 mg PO QHS 11/19/17 [History Confirmed 12/28/17] Ivig 60 gm IV X1 11/23/17 [History Confirmed 12/28/17] Omeprazole 40 mg PO DAILY PRN 11/23/17 [History Confirmed 12/28/17] Hydrocodone Bitart/Apap 5-325 [[place] 5MG-325MG] 1 - 2 tab PO Q6H PRN PRN 5 Days #40 tab 12/02/17 [Rx Confirmed 12/28/17] PFSH Social History Smoking Status: Never smoker HPI LEFT KNEE: Details: GABRIEL ZAMUDIO is a 52 year old F here today for 12/02 left lateral meniscus repair. She is ambulating with a walker, her brace is unlocked today as well. She has moderate swelling, discoloration at the portals but otherwise healing well. Denies any calf pain Assessment AND Plan 1. Orthopedic aftercare Z47.89 Plan Personally reviewed the surgical images if available, the surgery procedure and reviewed the post op care instructions. Monitor for signs of infection, redness, warmth, swelling in excess, drainage, opening of incision site/sites, and/or fever. Explained that she can begin walking in extension fwb. She should be able to rtw 01/11/18. Follow up in three wks or sooner if pain, swelling, numbness or associated symptoms, or concerns develop. All questions answered. Patient in agreement of plan. Coding Level of Care Code Global Post Op Diagnoses Orthopedic aftercare Z47.89 12/31/17 1022 <Electronically signed by Kristen Bhardwaj DO> Date Kristen Bhardwaj DO Cosigner Signature: Date (if applicable) CC: INITAL EVALUATION (1) Observed: 12/24/2017 Status: F Source: [place]IA - PT 1:29 PM [facility] REPOSITORY [facility] Physical Therapy [facility] [address] [place] [address] Fax REHABILITATION SERVICES INITIAL EVALUATION MR#: [id number] Acct: [id number] Name: GABRIEL ZAMUDIO Rep #: [id number] : 1965 52 From: Azar Oneil PT, Cert. MDT, OCS Referring Dr.: Kristen Bhardwaj DO Status: REG RCR Insurance: [facility] [employer] SELF PAY INSURANCE Patient's Visit Information GABRIEL ZAMUDIO is a 52 year old F referred to Physical Therapy by Kristen Bhardwaj DO with a diagnosis of LEFT MENISCUS REPAIR. Date of Evaluation: 12/18/17 Physical Therapist: Azar Oneil PT, - Visit Plan Frequency: 3x /Week Duration: 8WEEKS Plan: S/P LEFT LATERAL MENISCUS REPAIR 12/02/17 S/P 3WEEKS DEC 5. WBAT KNEE LOCKED IN EXTENSION WITH GAIT. SEE [facility] GUIDLINES FOR PROGRESSION - Subjective Subjective: This 52 y/o female presents to physical therapy presents to physical therapy left lateral meniscus repair 12/02/[address] Mckenzie at [facility]. Patient noticed pain in when changing sheet in camper noticed twinge October 20. Then 4 weeks symptoms worse with pain and swelling. Seen DR had MRI ,injection and drain fluid,November 23. Then had incident of pop same day in knee ,caused severe pain. Then went ER admitted then had surgery 12/02/17. Patient d/c to home with NWB LLE seen WBAT with cane with knee brace locked in extension with gait.Okay to unlock with ex's 0-40 degrees.Patient is impaired with all functional activities with ADLS; walking ,housework tasks and unable to return to job demands. VOCATION: [employer]. SOCIAL: - Pain Left Knee Pain Intensity (Out of 10): 3 Pain Intensity Range: 10 - Objective POSTURE: mild foward posture knee brace locked in extension. GAIT: ambulates with with cane with knee brace locked 2 point with decrease stance time. NEURO: denies parathesia/tingling ,redflexes intact. AROM: 5-70 degrees supine knee flexion. PATELLA MOBS: mild- mod restricted. EDEMA: joint line 49 cm. MMT: NT quads/hams ,hip flexion/abd/extension 3+/5,ankle 4/5. PROPRIOCEPTION: poor left. STAIRS: asecnd/descend steps with rail/cane one step at a time - Goals Goal 1:: Independant with HEP Goal Time Frame: 8-12 Weeks Goal 2:: Improve gait with normal ramón stance and swing phase symmtrical right to left . Goal Time Frame: 8-12 Weeks Goal 3:: Patient improve AROM knee flexion 130 degrees to improve stairs Goal Time Frame: 8-12 Weeks Goal 4:: Patient to improve strength quads/hams to 4/5 to improve function and ADL'S Goal Time Frame: 8-12 Weeks Goal 5:: Patient return job demands ,housework tasks with min limiations Goal Time Frame: 8-12 Weeks Goal 6:: Patient to improve LFES score to by 20-25min to improve QOL. Goal Time Frame: 8-12 Weeks - Rehabilitation Potential Physical Therapy Diagnosis: This patient underwent s/p lateral meniscus repair om 12/02 with decrease ROM,strength ,gait ,balnce and return to jodi demands thus benifit from skilled PT Rehabilitation Potential: Good - Anticipated Interventions Patient/Client Instruction: Educate patient on: Condition, Plan of Care For the Purpose of:: To decrease pain, To increase ROM, To improve muscle performance and motor function, To improve ability to perform ADL's, To increase tolerance to activity/condition/position, To improve ability of physical actions for home/community/work/leisure, To improve gait and locomotor functions, To improve health of tissue, To decrease soft tissue restriction, To increase flexibility/ROM, To improve ability to perform tasks related to life management Therapeutic Exercise to Include: Strength training, Endurance training, Balance training, Postural training, Flexibilty training, Passive ROM, Active ROM Comment: SEE PROTROCAL GUIIDLENES WITH MENISCUS REPAIR For the Purpose of:: To decrease pain, To decrease swelling/inflammation, To increase ROM, To improve muscle performance and motor function, To improve ability to perform ADL's, To improve performance and independence with ADL's, To improve ability of physical actions for home/community/work/leisure, To improve gait and locomotor functions, To improve health of tissue, To decrease soft tissue restriction, To increase flexibility/ROM, To improve endurance, To improve balance IF ES: Yes Cryotherapy (ice pack, ice massage): Yes Vasopneumatic device: Yes For the Purpose of:: To decrease pain, To decrease swelling/inflammation, To increase ROM, To improve health of tissue, To decrease soft tissue restriction Thank you for the opportunity to evaluate your patient. For Medicare and Medicare HMO plans, please review the plan of care and approve it. It will need to be FAXED BACK to us at [phone] for Medicare purposes. Please let me know if there are questions or concerns regarding this plan of care. Physician Signature: Date: <Electronically signed by Azar Oneil PT, Cert. ANGE, SHELLY> 12/24/17 1329 CC: Willi Bhardwaj DO ABDI Signed For Medicare only, by signing this I certify the plan of care. Physicians Signature Date PT D/C SUMMARY (1) Observed: 12/18/2017 Status: F Source: [place] 7:24 AM [facility] REPOSITORY [facility] Physical Therapy [facility] [address] [place] [address] Fax REHABILITATION SERVICES DISCHARGE SUMMARY MR#: [id number] Acct: [id number] Name: GABRIEL ZAMUDIO Rep #: [id number] : 1965 52 From: Azar Oneil PT Cert. ANGE, OCS Referring Dr.: Jeannine Castillo Status: REG RCR Insurance: [facility] SERVICES SELF PAY INSURANCE HP - PT D/C Summary It has been my pleasure to treat GABRIEL ZAMUDIO under orders from Jeannine Castillo, , for the diagnosis of HNP CERVICAL for a total of 7 visit(s). Discharge Date: Please see the following information for a summary of their discharge status. - Subjective Subjective: Pt reports that she is experiencing some soreness today in her neck since she woke up this morning. Pt reports that she was busy doing housework over the weekend, she experienced fatigue and soreness in her neck afterwards. Plans to RTW full duty on 10/02/17. - Pain Bilateral Neck Pain Intensity (Out of 10): 2 - Objective Objective/Function: Slightly more limited tolerance to exercise program today due to increase in baseline soreness. Several exercises were regressed due to this. Her ROM is functional, extension is slightly painful. At end of session, pt reporting fatigue but no increase in pain. - Goals Goal 1:: Independant with HEP. Goal 2:: Independant with posture for ADL'S Goal 3:: Decrease pain by 75% or greater with function with ADL'S and housework/job denmands. Goal 4:: Patient improve lumbar ROM min/mod loss to improve function with ADL'S Goal 5:: Patient be able to return to ADL'S and job demnads/housework tasks with min limiations - Plan Plan: cont with poc and work condition ex's - D/C Information If there are questions or concerns regarding this patient's physical therapy, please feel free to call me at [phone]. Thank you for the referral of this patient. Sincerely, Azar Oneil PT, <Electronically signed by Azar Oneil PT Cert. ANGE, OCS> 12/18/17 0724 CC: Jeannine Castillo; Willi Appiah JLA Signed OPERATIVE REPORT Observed: 12/10/2017 Status: F Source: [place] 1:35 PM [facility] REPOSITORY [facility] Medical Records Department [address] [place] [address] Operative Report 12/02/17 1313 MR#: [id number] Acct: [id number] Name: GABRIEL ZAMUDIO Rep #: [id number] : 1965 52 From: Kristen Bhardwaj DO PCP: Willi Appiah Status: DEP [facility] Y Location: [facility] Report of Operation Date of Procedure: 12/02/17 Pre-Operative Diagnosis: left knee medial and lateral meniscus tears Post-Operative Diagnosis: same Surgery/Procedure Performed:: salf, lat men repair, pmm Type of Anesthesia:: General, Local Anesthesiologist: Ricki Graves Estimated Blood Loss (mL): none Fluids Replaced: 1000ml lr Description of Procedure: Preoperative note Patient is a 52-year-old female who had a twisting injury was seen in my office she had an injection was feeling much better than had another twisting injury not too long afterwards and was unable to bear weight on her left leg. Patient was admitted for evaluation and repeat MRI did not show anything discernible different posterior horn medial meniscus tear and but when we listed in the office is questionable if there is a lateral meniscus tears as were her pain is and where there is a questionable lucency just medial to her popliteus fossa. Wrist benefits alternatives surgery discussed with patient. Risks including but not limited to blood loss, blood clot, infection, neurovascular injury, failure procedure, loss of life and loss of limb. Patient is aware like proceed with left knee arthroscopy repair is indicated. Operative note Patient seen and examined preoperative holding area. Left knee was marked. Patient brought to the operating room placed supine on the operating table. Signing, anesthesia, antibiotics were administered. The left leg was prepped and draped in usual sterile fashion with tourniquet around upper thigh. Marked out her incisions for anterior lateral anteromedial portal placement. Timeout was performed and elevated exsanguinated the leg and the tourniquet was raised her pressure of 250 torr. We created her anterior lateral portal with an 11 blade able to visualize the patellofemoral joint which was intact she had a little bit of thinning but no unstable pieces we moved to the medial joint line where the anterior medial portal was created under direct visualization. We then probed the medial meniscus there is a unstable posterior horn tear that was gently debrided with combination of a basket and shaver. The ACL and PCL were present in the notch. We moved to the lateral joint line. She actually had a tear that was medial to the more the popliteus tendon was was creating is quite an unstable lateral meniscus and then she had some erythema and redness posteriorly at the capsule which confirmed our questionable and lateral meniscus tear as well. We rasped the tear. We then placed 3 reverse curve all inside FasT-Fix anchors suture devices into the meniscus and then reinserted a probe and we have unstable meniscus remaining. We then microfracture the notch to instill blood flow into the area to also help further healing of the meniscus repair. We irrigated the knee with copious nonsterile saline the portals were closed with interrupted 4-0 nylon suture sterile dressings and a hinged brace locked in extension for ambulation allowed to be 0-40 while seated. Patient tolerated procedure well there are no comp occasions patient transferred to recovery room in stable condition. Next Operative note postoperative note Toe-touch weightbearing left leg Follow-up in 2 weeks in the office next Call with increased pain numbness tingling further issues arise next Hospital has prescription We will give patient her pictures in 2 weeks Dragon disclaimer This note was generated with [employer] dictation software. It may contain incorrect words, spelling, and punctuation that were not noted in checking the note before signing. 12/10/17 1335 <Electronically signed by Kristen Bhardwaj DO> Date Kristen Bhardwaj DO CC: Willi Appiah; Kristen Bhardwaj DO Signed DISCHARGE INSTRUCTION Observed: 12/02/2017 Status: F Source: [place] 3:25 PM [facility] REPOSITORY [facility] Medical Records Department [address] [place] [address] Instructions for Home/Discharge Instructions 12/02/17 1312 MR#: [id number] Acct: [id number] Name: ROBBGABRIEL R Rep #: [id number] : 1965 52 From: Kristen Bhardwaj DO PCP: Willi Appiah Status: REG [facility] ADDENDUM by Kristen Bhardwaj DO on 12/02/17 at 1525 Toe-touch weightbearing left leg with knee locked in extension, knee locked in extension at night may range of motion of knee 0-40 while seated Date Kristen Bhardwaj DO cc: Willi Appiah * Signed Discharge Diet: No Restrictions - remove dressings in 4 days and apply bandaids to incision sites, may get incision wet after 4 days, call with concerns, follow up in 2 weeks, Discharge Activity: May Not Drive May shower in (days): 1 Ice area for (Minutes): 20 - Every hour while awake. 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 Medications to take at Discharge Folic Acid 2 mg PO QHS 03/21/13 Methotrexate 15 mg PO SA 03/21/13 Valsartan/Hydrochlorothiazide [Diovan Hct 320-12.5 MG Tab] 1 tablet PO QHS 03/21/13 traZODone [Desyrel] 50 mg PO QHS 03/21/13 leucovorin tablet 25 mg PO MCKEON 10/24/14 Oxycodone HCl/Acetaminophen [Percocet 5-325] 1 tablet PO Q4H PRN PRN 05/01/16 predniSONE tablet 20 mg PO PRN PRN 08/21/16 Amlodipine [Norvasc] 5 mg PO QHS 04/09/17 Clonidine HCl [Catapres] 0.2 mg PO PRN PRN 04/09/17 Escitalopram Oxalate [Lexapro] 5 mg PO QHS 11/19/17 Ivig 60 gm IV X1 11/23/17 Omeprazole 40 mg PO DAILY PRN 11/23/17 Hydrocodone Bitart/Apap 5-325 [[place] 5MG-325MG] 1 - 2 tablet PO Q6H PRN PRN 5 Days #40 tablet 12/02/17 The following prescriptions were given: Hydrocodone Bitart/Apap 5-325 [[place] 5MG-325MG] 1 - 2 tablet PO Q6H PRN PRN 5 Days #40 tablet PRN Reason: Pain Primary Care Physician: Willi Appiah [Primary Care Provider] - Test Results: Test results from this visit will be discussed in further detail at your follow-up appointment, if applicable. Please Follow Up With: Kristen Bhardwaj DO - [phone] 12/02/17 1313 <Electronically signed by Kristen Bhardwaj DO> Date Kristen Bhardwaj DO CC: Willi Appiah ORTHOPEDIC VISIT Observed: 11/26/2017 Status: F Source: [place] REPORT 3:10 PM [facility] REPOSITORY [facility] Orthopaedics AND Sports Medicine [address] [place] [address] OFFICE VISIT Date of Service: 11/26/17 MR#: [id number] Acct: [id number] Name: GABRIEL ZAMUDIO Rep #: [id number] : 1965 Provider: HAFSA Lord Age/Sex: 52/F [place] [facility] [place] [place]: Signed Intake Intake Visit Reasons: LEFT KNEE Chief Complaint: Left Knee Pain Allergies vancomycin Allergy (Intermediate, Verified 11/23/17 17:59) RED MAN'S SYNDROME Medications Folic Acid 2 mg PO QHS 03/21/13 [History Confirmed 11/23/17] Methotrexate 15 mg PO SA 03/21/13 [History Confirmed 11/23/17] Valsartan/Hydrochlorothiazide [Diovan Hct 320-12.5 MG Tab] 1 tab PO QHS 03/21/13 [History Confirmed 11/23/17] traZODone [Desyrel] 50 mg PO QHS 03/21/13 [History Confirmed 11/23/17] leucovorin tablet 25 mg PO MCKEON 10/24/14 [History Confirmed 11/23/17] Oxycodone HCl/Acetaminophen [Percocet 5-325] 1 tab PO Q4H PRN PRN 05/01/16 [History Confirmed 11/23/17] predniSONE tablet 20 mg PO PRN PRN 08/21/16 [History Confirmed 11/23/17] Amlodipine [Norvasc] 5 mg PO QHS 04/09/17 [History Confirmed 11/23/17] Clonidine HCl [Catapres] 0.2 mg PO DAILY PRN 04/09/17 [History Confirmed 11/23/17] Escitalopram Oxalate [Lexapro] 5 mg PO QHS 11/19/17 [History Confirmed 11/23/17] Ivig 60 gm IV X1 11/23/17 [History Confirmed 11/23/17] Omeprazole 40 mg PO DAILY PRN 11/23/17 [History Confirmed 11/23/17] PFSH Social History Smoking Status: Never smoker HPI LEFT KNEE: Details: GABRIEL ZAMUDIO is a 52 year old F here today for f/u on fall after last office visit. She has increased pain, catching and locking. She is ambulating with a walker and in an immobilizer. She has swelling, but denies calf pain. Denies numbness, tingling or other associated symptoms. Ortho Exam Left Knee Contralateral Normal: Yes Swelling: No Homans Sign: No Knee ROM: Yes ROM-Extension -20 to 0, No ROM-Flexion 0-140 (115) Examination: Yes med jt line tenderness, Yes Lat jt line tenderness, Yes Pain with flexion, No TTP inf pole patella, Yes Anahi's Test Patella Grind: No Assessment AND Plan Plan Due to her mechanical symptoms and increased pain we will do knee scope as soon as possible to get her back to work . Reviewed the pre-operative plans with the patient. Risks and benefits of the procedure were fully explained, including but not limited to infection, neurovascular injury, continued pain, arthritis, stiffness, need for further surgery, re-injury, DVT, PE, general risks of anesthesia, and loss of limb or life. The patient understands all the risks and does wish to proceed with written consent. Follow up in [] or sooner if pain, swelling, numbness or associated symptoms, or concerns develop. All questions answered. Patient in agreement of plan. Coding Level of Care Code Off vis,est,level 3 11/26/17 1510 <Electronically signed by Cyrus PEREYRA> Date Cyrus PEREYRA Cosigner Signature: Date (if applicable) CC: DISCHARGE SUMMARY Observed: 11/24/2017 Status: F Source: [place] 5:04 PM [facility] REPOSITORY [facility] Medical Records Department [address] [place] [address] Discharge Summary 11/24/17 1310 MR#: [id number] Acct: [id number] Name: GABRIEL ZAMUDIO Rep #: [id number] : 1965 52 From: Jaqueline Palma MD PCP: Willi Appiah Status: ADM DENA Y Location: [facility] LE281-2 Discharge Date and Diagnosis - Problem List Patient Problems: Active and Suspected Problems Left knee pain (Acute) Date of Admission: 11/23/17 Date of Discharge: 11/24/17 - Primary Discharge Diagnosis Active and Suspected Problems Left knee pain (Acute) - Secondary Discharge Diagnosis Chronic Problems Dermatomyositis (Chronic) Hypertension (Chronic) History of stroke (Chronic) Hospital Course and Treatment Imaging Results: Diagnostic Data Knee X-Ray 11/23/17 14:12 IMPRESSION: Mild arthrosis of the medial femorotibial compartment. Soft tissue calcifications. Gas in the suprapatellar recess from aspiration earlier today. Electronically Signed: Pineda Meyer MD at 15:34 EDT Tel , Service support , Lower Extremity MRI 11/23/17 17:54 IMPRESSION: Stable medial meniscus tear. Degenerative change. Joint effusion with suprapatellar plica and air in the joint space consistent with recent injection. Electronically Signed: Demarcus Martinez MD at 22:31 EDT , Service support , orthopedic surgery-Dr Bhardwaj Operations: None Procedures: None Summary of Care Provided: The patient is a 52 year old F with past medical history of dermatomyositis, CVA and hypertension. She was admitted by the ED on 11/23/2017 with a complaint of left knee pain and swelling. She had at least sustained a left meniscal tear and was seen by the orthopedic nurse practitioner and Dr. Casper correlates office early on the day of presentation. She had an aspiration done and a subsequent steroid injection and felt better. She was able to ambulate and whilst ambulating she suddenly had severe left knee pain and had a sudden pop. She was not able to ambulate or weight-bear was unable to use crutches or a walker because of her dermatomyositis with associated weakness. She was therefore admitted for further imaging. MRI of the knee showed a moderateve volume effusion and a stable medial meniscal tear. She was reviewed by orthopedic surgeon Dr. Davis during admission and plan is to discharge her home today to follow-up with Dr. Naidu in 2 days time. An outpatient diagnostic arthroscopy will be done in the office. Patient states she has Percocet left over at home from her recent neck surgery and so that she does not need pain meds. Patient seen and examined prior to discharge. She still complained of knee pain but had been able to ambulate with physical therapy want her to have to walk up and down the stairs to minimize the pain. She denied any fever or chills, cough or shortness of breath, chest pain, abdominal pain, diarrhea vomiting. Review of systems otherwise negative. o/e: [] Vital Signs Height 5 ft 6 in Weight: 214 lb 6.4 oz Weight in Pounds 214.4 lbs Pulse Ox 98 Constitutional: Denies: Anorexia, Chills, Fever Eyes: Denies: Blurred vision, Double vision HEENT: Denies: Head Aches, Sinus Congestion, Sinus Drainage Cardiovascular: Denies: Chest Pain, Palpitations Respiratory: Denies: Cough, Shortness of breath at rest, Sputum production Gastrointestinal: Denies: Abdominal Pain, Nausea, Vomiting Genitourinary: Denies: Dysuria Musculoskeletal: Reports: - - Left knee pain and swelling; left knee in brace Skin: Denies: Rash, Wounds Neurological: Denies: Numbness, Tingling, Focal weakness Hematologic/ Lymphatic: Denies: Easy Bruising, Easy Bleeding, Hx of blood clot Plan as stated above. Follow-up with her primary care doctor in 1 week. She was also given a prescription for outpatient physical therapy. Discharge Diet: 2000 mg Sodium Diet Discharge Activity: Use Walker Weight Bearing Status: Weight bearing as tolerated Call your doctor if you observe: Uncontrolled pain Home Medications: Medications to take at Discharge Folic Acid 2 mg PO QHS 03/21/13 Methotrexate 15 mg PO SA 03/21/13 Valsartan/Hydrochlorothiazide [Diovan Hct 320-12.5 MG Tab] 1 tablet PO QHS 03/21/13 traZODone [Desyrel] 50 mg PO QHS 03/21/13 leucovorin tablet 25 mg PO MCKEON 10/24/14 Oxycodone HCl/Acetaminophen [Percocet 5-325] 1 tablet PO Q4H PRN PRN 05/01/16 predniSONE tablet 20 mg PO PRN PRN 08/21/16 Amlodipine [Norvasc] 5 mg PO QHS 04/09/17 Clonidine HCl [Catapres] 0.2 mg PO DAILY PRN 04/09/17 Escitalopram Oxalate [Lexapro] 5 mg PO QHS 11/19/17 Ivig 60 gm IV X1 11/23/17 Omeprazole 40 mg PO DAILY PRN 11/23/17 Primary Care Physician: Willi Appiah [Primary Care Provider] - Please follow up with your Primary Care Physician in: one week Please Follow Up With: Kristen Bhardwaj DO When: in 2 days Patient Instructions: ED Knee Pain UKO Additional Instructions: outpatient physical therapy 3x weekly Disposition: Home Minutes spent on discharge:: 40 Patient Condition:: Stable Medical Necessity - Tobacco Use Smoking Status: Never smoker Meaningful Use Info Meaningful Use Diagnoses (Choose all that apply): None applicable Code Visit Inpatient E AND M: 13651 Disch Hosp 11/24/17 1704 <Electronically signed by Jaqueline Palma MD> Date Jaqueline Palma MD Cosigner Signature (if applicable): Date CC: Willi Appiah; Jaqueline Palma MD; Willi Appiah MD Signed DISCHARGE INSTRUCTION Observed: 11/24/2017 Status: F Source: [place] 1:10 PM [facility] Medical Records Department [address] [place] [address] Instructions for Home/Discharge Instructions 11/24/17 1307 MR#: [id number] Acct: [id number] Name: GABRIEL ZAMUDIO Rep #: [id number] : 1965 52 From: Jaqueline Palma MD PCP: Willi Appiah Status: ADM DENA - Discharge Diagnoses Current Active Problems: Current Active and Chronic Problems Left knee pain (Acute) You will use the following diet at home:: Cardiac Your food should be the consistency of: Regular Your liquids should be the consistency of: Regular/Thin Discharge Activity: Use Walker Weight Bearing Status: Weight bearing as tolerated Call your doctor if you observe: Uncontrolled pain Instructions: ED Knee Pain UKO Additional Instructions: to have outpatient physical therapy 3x weekly Allergies/Adverse Reactions: Allergies vancomycin Allergy (Intermediate, Verified 11/23/17 17:59) [employer] MAN'S SYNDROME Medications to take at Discharge Folic Acid 2 mg PO QHS 03/21/13 Methotrexate 15 mg PO SA 03/21/13 Valsartan/Hydrochlorothiazide [Diovan Hct 320-12.5 MG Tab] 1 tablet PO QHS 03/21/13 traZODone [Desyrel] 50 mg PO QHS 03/21/13 leucovorin tablet 25 mg PO MCKEON 10/24/14 Oxycodone HCl/Acetaminophen [Percocet 5-325] 1 tablet PO Q4H PRN PRN 05/01/16 predniSONE tablet 20 mg PO PRN PRN 08/21/16 Amlodipine [Norvasc] 5 mg PO QHS 04/09/17 Clonidine HCl [Catapres] 0.2 mg PO DAILY PRN 04/09/17 Escitalopram Oxalate [Lexapro] 5 mg PO QHS 11/19/17 Ivig 60 gm IV X1 11/23/17 Omeprazole 40 mg PO DAILY PRN 11/23/17 Primary Care Physician: Willi Appiah [Primary Care Provider] - Please follow up with your Primary Care Physician in: one week Test Results: Test results from this visit will be discussed in further detail at your follow-up appointment, if applicable. Please Follow Up With: Kristen Bhardwaj DO When: in 2 days Proposed Discharge Date: 11/24/17 11/24/17 1310 <Electronically signed by Jaqueline Palma MD> Date Jaqueline Palma MD CC: Willi Appiah; Kristen Bhardwaj DO LOWER EXT JOINT ONLY Observed: 11/23/2017 Status: F Source: [place] (ROUTINE) 5:55 PM [facility] Imaging Services [address] [place] [address] Lower Ext Joint Only (Routine) MR#: [id number] Acct: [id number] Name: GABRIEL ZAMUDIO Rep #: [id number] : 1965 F 52 From: Demarcus Martinez MD PCP: Willi Appiah Status: ADM DENA Study: Lower Ext Joint Only (Routine) Date of Exam: 11/23/17 Exam# [id number] Ordering Dr: Allen Fernandez DO STUDY: MRI LEFT KNEE REASON FOR EXAM: Female, 52 years old. Re-injury. Pain TECHNIQUE: Standardized fat and water weighted pulse sequences were obtained in all 3 orthogonal planes. COMPARISON: November 19, 2017 MRI. November 23, 2017 x-ray FINDINGS: There is partial tear of the posterior horn of the medial meniscus adjacent to the meniscal root ligament, series 8 images 04/18 and . There is focal, less than 50% thickness articular cartilage loss of the medial femorotibial compartment. There is mild osteoarthritic spur formation of the medial knee compartment. Normal medial collateral ligamentous complex (MCL). Normal distal semimembranosus, gracilis and semitendinosus tendons. Normal lateral meniscus. Normal hyaline cartilage of the lateral femorotibial compartment. Normal lateral femoral condyle and tibial plateau. Normal proximal tibiofibular articulation. Normal lateral collateral (fibular) ligament. Normal popliteus tendon. Normal biceps femoris tendon. Normal anterior cruciate ligament (ACL). Normal posterior cruciate ligament (PCL). There is arthrosis of the patellofemoral articulation. There is diffuse, greater than 50% thickness articular cartilage loss of the patellofemoral compartment. Normal medial and lateral patellar retinaculum. Normal quadriceps tendon. Normal patellar tendon. Normal Hoffa's fat pad. There is a moderate volume joint effusion, mildly improved. There are small foci of diminished signal within the effusion consistent with air associated with recent injection. There is suprapatellar plica. The soft tissues are unremarkable. The otherwise visualized osseous structures are unremarkable. MRI/Lower Ext Joint Only (Routine) IMPRESSION: Stable medial meniscus tear. Degenerative change. Joint effusion with suprapatellar plica and air in the joint space consistent with recent injection. Electronically Signed: Demarcus Martinez MD at 22:31 EDT , Service support , CC: Willi Appiah; Allen Fernandez DO Molder Sweep: Signed HISTORY AND PHYSICAL Observed: 11/23/2017 Status: F Source: [place] EXAM 5:20 PM [facility] Medical Records Department [address] [place] [address] History and Physical 11/23/17 1713 MR#: [id number] Acct: [id number] Name: GABRIEL ZAMUDIO Rep #: [id number] : 1965 52 From: Allen Fernandez DO PCP: Willi Appiah Status: ADM DENA Y Location: [facility] [id number] Problem List (1) Left knee pain Status: Acute Qualifiers: Chronicity: acute Qualified Code(s): M25.562 - Pain in left knee History of Present Illness Date of Admission: 11/23/17 Chief Complaint: left knee pain. The patient is a 52 year old F who earlier sustained a left meniscal tear. Subtle orthopedic nurse practitioner who did the injection today and patient noted that she was feeling well and then later heard a pop and then suddenly had very severe left knee pain. Patient is unable to put any weight on that leg since that pop and was not able to use crutches nor a walker given her known dermatomyositis and weakness associated with that. Patient is being brought in status for further therapy needs and precertification and additional imaging. Patient was seen by physical therapy in the emergency room who felt the patient would benefit from skilled therapy upon discharge. Case management was unable to facilitate a discharge to a alf facility directly from the emergency room. 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 Smoking Status: Never smoker - *Family History Maternal History Items: - - Graves' disease Paternal History Items: No pertinent history Review of Systems Constitutional: Denies: Anorexia, Chills, Fever Eyes: Denies: Blurred vision, Double vision HEENT: Denies: Head Aches, Sinus Congestion, Sinus Drainage Cardiovascular: Denies: Chest Pain, Palpitations Respiratory: Denies: Cough, Shortness of breath at rest, Sputum production Gastrointestinal: Denies: Abdominal Pain, Nausea, Vomiting Genitourinary: Denies: Dysuria Musculoskeletal: Reports: - - Left knee pain and swelling Skin: Denies: Rash, Wounds Neurological: Denies: Numbness, Tingling, Focal weakness Hematologic/ Lymphatic: Denies: Easy Bruising, Easy Bleeding, Hx of blood clot Comment: All review of systems are negative except as mentioned in the history of present illness and the other review of systems. VTE Information - Inpt Only VTE Present on Admission: No VTE Mechan Device Prophylaxis: None VTE Pharm Prophylaxis ordered?: Yes Patient Problems: Active and Suspected Problems Left knee pain (Acute) - Physical Exam General: Alert, Cooperative, No apparent distress HEENT: Atraumatic, Normocephalic Oral: Moist Mucosa, No Gingival or Mucosal Lesions/ Ulcerations Neck: No Nodes, Thyroid Normal Size and Texture Lungs: Clear to auscultation, Normal air movement, No rhonchi, No wheeze Cardiovascular: Regular rate, Regular Rhythm, Normal S1, Normal S2, No murmurs Abdomen: Bowel Sounds Present, Soft, Non Tender, Non-Distended, No Hepato-splenomegaly Extremities: No clubbing, No cyanosis, No Calf Tenderness, Peripheral Pulses Normal Skin: No rashes, No breakdown Musculoskeletal: - - Left knee effusion with posterior knee tenderness. No warmth of the left knee. No woody induration of the distal lower extremity. Neurological: Sensory exam intact to light touch and pain, Coordination normal Psych/Mental Status: Normal Affect, Appropriate Vital Signs Temp Pulse Resp BP Pulse Ox 36.4 C L 97 18 144/88 H 97 11/23/17 11:00 11/23/17 17:09 11/23/17 17:09 11/23/17 17:09 11/23/17 17:09 Oxygen Delivery Method Room Air Weight: 97.522 kg Body Mass Index (BMI) 34.7 Assessment/Plan All Active Problems Left knee pain (Acute) Hypertensive urgency (Acute) 1. Left knee pain * Patient had a prior known meniscal tear but was doing okay even after an injection but then heard a pop. Unclear what this may be if it is a ligament tear or possible Goff's cyst. * Patient will be admitted for further symptom control but also additional imaging. Patient will undergo another MRI of her knee given the new symptoms * Physical therapy and outpatient therapy will be consulted * Case management to assist in regards to assistance in regards to disposition to a alf facility. Patient will will be awaiting on precertification for alf facility. Patient is aware that there could be a denial from the insurance company for her to go to a alf facility. * Was going to consult orthopedics as patient was seen in Dr. Bhardwaj's office today. She informed me that she does need not do consults on Mondays. Will defer to the oncoming hospitalist to see if that would still need to be performed on Thursday or not. I do not feel it is necessary to bring any other orthopedic group at this time as I do not feel that there is any acute surgical needs at this point time. 2. DVT prophylaxis with Lovenox Code Visit Inpatient E AND M: 64650 Init Hosp L3 11/23/17 1720 <Electronically signed by Allen Fernandez DO> Date Allen Fernandez DO Cosigner Signature: Date (if applicable) CC: Willi Appiah; Allen Fernandez DO; Joceline Daniel MD Signed EMERGENCY DEPARTMENT Observed: 11/23/2017 Status: F Source: [place] SUMMARY 4:46 PM [facility] Medical Records Department [address] [place] [address] Emergency Department Summary 11/23/17 1259 MR#: [id number] Acct: [id number] Name: GABRIEL ZAMUDIO Rep #: [id number] : 1965 52 From: Jase Woods MD PCP: Willi Appiah Status: REG ER ADDENDUM by Jase Woods MD on 11/23/17 at 1646 Physical therapy came down and evaluated the patient. They felt that it was unsafe for the patient to go home as she has no ramp. Between social work, hospitalist and myself, we discussed this with the patient. Hospitalist wanted to make sure that the patient was okay going to a shelter after her stay if need be. She states that she would be okay with this and is trying to figure out where. The patient will be admitted under observation status Date Jase Woods MD cc: Willi Appiah * Signed ADDENDUM by Jase Woods MD on 11/23/17 at 2814 Patient at discharge was unable to walk. They tried a walker and crutches. She is unable to bear weight. I did perform an x-ray and it does not show anything acute. I discussed this with the hospitalist who stated there was no diagnosis for the patient to be admitted. I will have the social workers talk with the patient and see what options we have at that time. Date Jase Woods MD cc: Willi Appiah * Signed - ER Visit Summary Date of Service: 11/23/17 Chief Complaint: Left knee pain History of Present Illness: The patient is a 52 F who presents with left knee pain. She states that it started today when she was walking down a ramp and twisted her knee. She was recently diagnosed with a meniscal tear and had 30 cc of fluid taken off the knee's morning. She had a cortisone injection into that knee. She felt a pop while she was walking. She was on Percocet and Advil. She was wearing a knee brace and was using a cane to help her walk. Physical Examination: Vital signs reviewed. Left knee exam reveals tenderness to palpation posteriorly. The extensor mechanism is intact. She has 2+ distal pulses. Sensation is intact. There is no effusion Test Results: None performed Emergency Department Course and Treatment: Subcutaneous morphine. I discussed this with Christiano Lord, who performed her procedure today. He recommended pain control and have her following up in the office. Patient was concerned about walking. I informed her that she may need to use crutches or a wheelchair. She states that she cannot use crutches because of proximal weakness due to dermatomyositis. She has Percocet at home that she will take Treatment Plan: [] Disposition: Discharge Impression: Left knee pain, recent meniscal tear This note was generated with [employer] dictation software. It may contain incorrect words, spelling, and punctuation that were not noted in review of the chart prior to signing ED Disposition - Plan for ED Patient: Chief Complaint: Lower Extremity Injury Referrals: Willi Appiah [Primary Care Provider] - What to do if you have Problems For any increased pain, shortness of breath, bleeding, nausea or vomiting, chest pain, or any unexpected problems, contact your Primary Care Provider. Call [facility] ([phone]) or report to the closest Emergency Room. Call 911 if necessary. 11/23/17 1302 <Electronically signed by Jase Woods MD> Date Jase Woods MD Cosigner Signature (If Indicated): Date CC: Willi Appiah KNEE 4 OR MORE Observed: 11/23/2017 Status: F Source: [place] VIEWS 2:12 PM [facility] Imaging Services [address] [place] [address] Knee 4 or More Views MR#: [id number] Acct: [id number] Name: GABRIEL ZAMUDIO Rep #: [id number] : 1965 F 52 From: Pineda Meyer MD PCP: Willi Appiah Status: REG ER Study: Knee 4 or More Views Date of Exam: 11/23/17 Exam# [id number] Ordering Dr: Jase Woods MD STUDY: X-RAY - LEFT KNEE REASON FOR EXAM: Unable to bear weight after feeling a pop today, fluid removed. TECHNIQUE: 4 view(s) of the knee. COMPARISON: None. FINDINGS: Normal visualized distal femur. Normal visualized proximal tibia and fibula. Normal proximal tibiofibular articulation. There is mild joint space narrowing of the medial femorotibial compartment. Normal lateral femorotibial compartment. Normal patellofemoral articulation. There are pockets of gas in the suprapatellar recess from aspiration earlier today. There are soft tissue calcifications at the posterior aspect of the knee. RAD/Knee 4 or More Views IMPRESSION: Mild arthrosis of the medial femorotibial compartment. Soft tissue calcifications. Gas in the suprapatellar recess from aspiration earlier today. Electronically Signed: Pineda Meyer MD at 15:34 EDT Tel , Service support , CC: Willi Appiah; Jase Woods MD Molder Sweep: Signed ORTHOPEDIC VISIT Observed: 11/23/2017 Status: F Source: [place] REPORT 2:08 PM [facility] Orthopaedics AND Sports Medicine [address] [place] [address] [address] [place] [address] OFFICE VISIT Date of Service: 11/23/17 MR#: [id number] Acct: [id number] Name: GABRIEL ZAMUDIO Rep #: [id number] : 1965 Provider: HAFSA Lord Age/Sex: 52/F Location: [facility]: Signed Intake Intake Visit Reasons: LEFT KNEE PAIN Is patient in pain?: Yes (6) Allergies vancomycin Adverse Reaction (Intermediate, Verified 11/23/17 11:03) RED MAN'S SYNDROME Medications Folic Acid 2 mg PO QHS 03/21/13 [History Confirmed 11/23/17] Methotrexate 20 mg PO QWEEK 03/21/13 [History Confirmed 11/23/17] Valsartan/Hydrochlorothiazide [Diovan Hct 320-12.5 MG Tab] 1 tab PO QHS 03/21/13 [History Confirmed 11/23/17] traZODone [Desyrel] 50 mg PO QHS 03/21/13 [History Confirmed 11/23/17] Esomeprazole Mag Trihydrate [Nexium] 40 mg PO PRN PRN 08/22/14 [History Confirmed 11/23/17] leucovorin tablet 25 mg PO QWEEK 10/24/14 [History Confirmed 11/23/17] Krill Oil/[place]-3/Dha/Epa [Fish Oil with Krill Softgel] 1 ea PO DAILY 06/19/15 [History Confirmed 11/23/17] Oxycodone HCl/Acetaminophen [Percocet 5-325] 1 tab PO Q4H PRN PRN 05/01/16 [History Confirmed 11/23/17] predniSONE tablet 20 mg PO PRN PRN 08/21/16 [History Confirmed 11/23/17] Amlodipine [Norvasc] 5 mg PO DAILY 04/09/17 [History Confirmed 11/23/17] Clonidine HCl [Catapres] 0.2 mg PO DAILY PRN 04/09/17 [History Confirmed 11/23/17] Escitalopram Oxalate [Lexapro] 5 mg PO DAILY 11/19/17 [History Confirmed 11/23/17] PFSH Social History Smoking Status: Never smoker HPI LEFT KNEE PAIN: Details: GABRIEL ZAMUDIO is a 52 year old F here today for left knee pain and ED f/u with current MRI. She was camping last month and was changing the sheet on a bed and some pain in the lateral knee that progressively worsened. She has swelling and is wearing a knee immobilizer. She also saw Dr Daniel who suggested an eval with ortho and offered an injection but she did not have one. She is using a cane for support. She has increased pain with twisting, stairs and ADLS like in and out of a car. She has tight sensation with flexion. She has had catching and feeling of instability, there was popping but that has no happened for a bit. Denies numbness, tingling or other associated symptoms. She has been icing and using NSAIDs but since the ED she has been resting and elevating. She is using the percocet prn. Ortho Exam Left Knee Skin/Wound: Yes CDI Contralateral Normal: Yes Swelling: Yes Homans Sign: No 1+: Effusion Knee ROM: Yes ROM-Extension -20 to 0, Yes ROM-Passive Flexion 0-140 (110) Examination: Yes TTP inf pole patella, Yes Pain with flexion, Yes med jt line tenderness, No Lat jt line tenderness Stability: NML: Anterior Drawer, NML: Valgus 0, NML: Valgus 30, NML: Varus 0, NML: Varus 30 Patella Grind: No Assessment AND Plan 1. Acute medial meniscus tear of left knee, initial encounter S8.420Z Plan After discussing options including down time for surgical recovery (pending type of meniscus repair) patient would like to proceed with an injection of the knee as she only has 3 weeks of FMLA and thus would like to avoid surgery if possible. PAtient to f/u as needed based on relief from injection. Personally reviewed the patient's medical history, medications, surgeries and recent exams if available. X-rays were reviewed. There is no obvious fracture, dislocation, or lucency noted. Personally reviewed the recent MRI and explained she has a medial meniscus tear and effusion. Her treatment options are do nothing, injection, bracing, PT or knee scope for debridement. Follow up in [] or sooner if pain, swelling, numbness or associated symptoms, or concerns develop. All questions answered. Patient in agreement of plan. Orders Orders: Medications New: 2. Effusion, left knee M25.462 Orders Orders: Medications New: Plan Detail Other Orders Orders: Other Medications New: Coding Level of Care Code Off vis,new,level 3 Diagnoses Acute medial meniscus tear of left knee, initial encounter S83.242A Encounter type: initial encounter Effusion, left knee M25.462 11/23/17 1408 <Electronically signed by Cyrus PEREYRA> Date Cyrus PEREYRA Cosigner Signature: Date (if applicable) CC: DISCHARGE INSTRUCTION Observed: 11/23/2017 Status: F Source: [place] 1:02 PM [facility] Medical Records Department [address] [place] [address] Discharge Instruction 11/23/17 1302 MR#: [id number] Acct: [id number] Name: GABRIEL ZAMUDIO Rep #: [id number] : 1965 52 From: Jase Woods MD PCP: Willi Appiah Status: REG ER ED Disposition - Plan for ED Patient: Disposition: Home or Assisted Living Chief Complaint: Lower Extremity Injury Instructions: ED Knee Pain [facility] Referrals: Willi Appiah [Primary Care Provider] - What to do if you have Problems For any increased pain, shortness of breath, bleeding, nausea or vomiting, chest pain, or any unexpected problems, contact your Primary Care Provider. Call [facility] ([phone]) or report to the closest Emergency Room. Call 911 if necessary. 11/23/17 1302 <Electronically signed by Jase Woods MD> Date Jase Woods MD Cosigner Signature (If Indicated): Date CC: Willi Appiah SYNOVIAL FLUID RBC, Collected: 11/23/2017 Status: F Source: [place] WBC AND DIFF 11:59 AM [facility] REPOSITORY TYPE CODE TESTS RESULT OUT OF RANGE REFERENCE UNITS LAB L200.5050 0.000-0.000 10 3 uL High SYN Tot 0.[address] Result Comment: This is the Total Number of Nucleated Cell Types in the Body Fluid. LAB L200.5200 0.000-0.002 10 3uL High SYNOVIAL WBC 0.5220 LAB L200.5260 % SYBF Normal PMN WBC% 14.0 LAB L200.5270 10 3/ul SYBF Normal PMN WBC# 0.073 LAB L200.5280 % SYBF Normal MN WBC% 86.0 LAB L200.5800 PATH Normal COM/SYFL May follow LAB L200.4600 Normal SYNOVIAL SOURCE LEFT KNEE LAB L200.4900 Pale Yellow Normal SYNOVIAL COLOR Yellow LAB L200.5000 CLEAR Normal SYNOVIAL CHUY. Sl Cl LAB L200.5100 0 /mm3 High SYNOVIAL RBC 120 LAB L200.5300 0-25 % Normal NEUTROPHIL 3 LAB L200.5400 % LYMPH Normal 3 LAB L200.5500 % MONO Normal 94 Performed By: #### L200.0400, L200.4175, M100.1300 #### [facility] [address] [place], [address] CRYSTALS, BODY FLUID Collected: 11/23/2017 Status: C Source: [place] 11:59 AM [facility] REPOSITORY TYPE CODE TESTS RESULT OUT OF RANGE REFERENCE UNITS LAB L200.4200 Normal SEE PATH REV CRYSTALS/BF LAB L200.4225 Normal SYNOVIAL SOURCE/BF LAB L200.6020 Normal PATH Reviewed REV Result Comment: Negative for malignant cells. A few non-descript crystals are noted. Foster Boles M.D. 11/24/17 AMENDED REPORT 11/24/17 1025 PATH REV previously reported as: Will follow Performed By: #### L200.0400, L200.4175, M100.1300 #### [facility] [facility] [address], [address] Observed: 11/23/2017 Status: F Source: [place] CULTURE, BODY FLUID 11:59 AM [facility] REPOSITORY List Antibiotics Last 48 Hours? . List Antibiotics to be Started? . Gram Stain Centrifuged Specimen? Culture performed on centrifuged specimen Gram Stain No organisms seen No White Blood Cells Rare Red Blood Cells 4+ Red Cell Stroma Body Fluid Cult NO GROWTH IN 14 DAYS Cult, Anaerobic No growth in 5 days. Performed By: #### L200.0400, L200.4175, M100.1300 #### [facility] [address] [facility] [place], [address] EMERGENCY DEPARTMENT Observed: 11/19/2017 Status: F Source: [place] SUMMARY 10:58 AM [facility] REPOSITORY [facility] Medical Records Department [address] [facility] [place] [address] Emergency Department Summary 11/19/17 1055 MR#: [id number] Acct: [id number] Name: PETER ZAMUDIOJACQUELYN Chery Rep #: [id number] : 1965 52 From: Danilo Burton DO PCP: Willi Appiah Status: REG ER - ER Visit Summary Date of Service: 11/19/17 Chief Complaint: [Left knee pain] History of Present Illness: The patient is a 52 F [presents the emergency department complaint left knee pain for 4 weeks. Patient states that she had no significant fall or injury that she can recall other than she was making a bed at one point and felt a mild discomfort in her left lateral knee. Patient has not had any recent travel or surgery. Patient complains of pain when trying to stand from a seated position and at times the knee will pop and she will get some mild relief of the pain and the pain comes back. Patient denies any fevers.] Physical Examination: [HEENT-PERRLA, EOMI. Cranial nerves II through XII grossly intact. TMs clear. Mucous membranes moist. No adenopathy. Cardiovascular-regular rate and rhythm without murmur or ectopy Lungs-clear to auscultation, chest wall stable without crepitus or subcu emphysema Abdomen-normoactive bowel sounds, soft, nontender, no rebound or rigidity, no peritoneal signs. Extremities-intact 4, normal range of motion, normal pulses, atraumatic]. Left knee-small effusion noted on exam. Patient has pain with flexion of the knee however I do not appreciate any popping or clicking. Ligamentously stable. She has pain with varus and valgus stressing. Neurovascular intact distally. Test Results: [MRI of the left knee obtained was read by radiology as moderate joint effusion and a small tear posterior horn root ligament medial meniscus also mildly thickened medial patellar plica] Emergency Department Course and Treatment: [Case was discussed with nurse practitioner covering for Dr. alisa Stahl as patient has an appointment to see Dr. alisa baker in 2 weeks and we were told that they will call her and attempt to get her in sooner as patient is having a hard time ambulating and working. They recommended minimizing putting weight on that leg.] Treatment Plan: [Patient will be placed in a knee immobilizer. Patient has Percocet at home for pain. Patient to follow-up with orthopedics.] Disposition: [Discharged home in stable condition] Impression: [Left knee sprain Medial meniscus tear Knee joint effusion] This note was generated with [employer] dictation software. It may contain incorrect words, spelling, and punctuation that were not noted in review of the chart prior to signing ED Disposition - Plan for ED Patient: Chief Complaint: Lower Extremity Injury Referrals: Willi Appiah [Primary Care Provider] - What to do if you have Problems For any increased pain, shortness of breath, bleeding, nausea or vomiting, chest pain, or any unexpected problems, contact your Primary Care Provider. Call [facility] ([phone]) or report to the closest Emergency Room. Call 911 if necessary. 11/19/17 1052 <Electronically signed by Danilo Burton DO> Date Danilo Burton DO Cosigner Signature (If Indicated): Date CC: Willi Appiah DISCHARGE INSTRUCTION Observed: 11/19/2017 Status: F Source: [place] 10:58 AM [facility] REPOSITORY [facility] Medical Records Department [address] [facility] [place] [place] [address] Discharge Instruction 11/19/171057 MR#: [id number] Acct: [id number] Name: GABRIEL ZAMUDIO Rep #: [id number] : 1965 52 From: Danilo Burton DO PCP: Willi Appiah Status: REG ER ED Disposition - Plan for ED Patient: Chief Complaint: Lower Extremity Injury Instructions: ED Meniscal Injury Knee Poss Referrals: Willi Appiah [Primary Care Provider] - Kristen Bhardwaj DO [STAFF PHYSICIAN] - As soon as possible What to do if you have Problems For any increased pain, shortness of breath, bleeding, nausea or vomiting, chest pain, or any unexpected problems, contact your Primary Care Provider. Call [facility] ([phone]) or report to the closest Emergency Room. Call 911 if necessary. 11/19/171057 <Electronically signed by Danilo Burton DO> Date Roro Josephine ALBERTS Cosigner Signature (If Indicated): Date CC: Willi Appiah LOWER EXT JOINT ONLY Observed: 11/19/2017 Status: F Source: [place] (ROUTINE) 8:37 AM [facility] REPOSITORY [facility] Imaging Services [address] [place] [address] Lower Ext Joint Only (Routine) MR#: [id number] Acct: [id number] Name: GABRIEL ZAMUDIO Rep #: [id number] : 1965 F 52 From: Pineda Meyer MD PCP: Willi Appiah Status: REG ER Study: Lower Ext Joint Only (Routine) Date of Exam: 11/19/17 Exam# [id number] Ordering Dr: Danilo Burton DO STUDY: MRI LEFT KNEE REASON FOR EXAM: Worsening lateral left knee pain for one month. TECHNIQUE: Standardized fat and water weighted pulse sequences were obtained in all 3 orthogonal planes. COMPARISON: None. FINDINGS: There is a small tear of the posterior horn root ligament of the medial meniscus (T2 coronal image 12). There is arthrosis of the medial femorotibial compartment with partial-thickness chondral loss of the medial femoral condyle (T2 sagittal image 9). Normal medial femoral condyle and tibial plateau. Normal medial collateral ligamentous complex (MCL). Normal distal semimembranosus, gracilis and semitendinosus tendons. Normal lateral meniscus. Normal hyaline cartilage of the lateral femorotibial compartment. Normal lateral femoral condyle and tibial plateau. Normal proximal tibiofibular articulation. Normal lateral collateral (fibular) ligament. Normal popliteus tendon. Normal biceps femoris tendon. Normal anterior cruciate ligament (ACL). Normal posterior cruciate ligament (PCL). Normal congruent patellofemoral articulation. There is intermediate grade chondromalacia patellae (T2 axial image 10). Normal medial and lateral patellar retinaculum. Normal visualized quadriceps tendon. Normal patellar tendon. Normal Hoffa's fat pad. There is a moderate-sized joint effusion. There is a mildly thickened medial patellar plica (T2 sagittal image 8; T2 axial image 11). There is mild edema in the anterior subcutis adipose space. There is a small cyst and mild bone edema in the proximal tibia near the insertion site of the posterior cruciate ligament. MRI/Lower Ext Joint Only (Routine) IMPRESSION: Small tear of the posterior horn root ligament of the medial meniscus. 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 Joint effusion. Mildly thickened medial patellar plica. Electronically Signed: Pineda Meyer MD at 10:24 EDT Tel , Service support , CC: Willi Appiah; Danilo Burton DO [place]ep: Signed [employer]INALYSIS, EMPLOYEE Collected: 10/20/2017 Status: F Source: [place] 7:09 AM [facility] REPOSITORY TYPE CODE TESTS RESULT OUT OF RANGE REFERENCE UNITS LAB L400.3000 Yellow COLOR Normal Yellow LAB L400.3050 Clear Normal CLARITY Sl. Cloudy LAB L400.3200 Normal mg/dl Normal GLUCOSE, UR Normal LAB L400.3300 Negative mg/dL Normal BILIRUBIN URINE Negative LAB L400.3400 Negative mg/dl Normal KETONE UR Negative LAB L400.3465 1.002-1.030 Normal SP.GR. DIPSTX 1.020 LAB L400.3550 5.0 - 8.0 pH UR Normal 5.0 LAB L400.3600 Negative mg/dl PROT Normal DIPSTX Negative LAB L400.3700 Normal mg/dl Normal UROBILI Normal LAB L400.3750 Negative Normal NITRITE UR Negative LAB L400.3780 Negative /ul Normal OCCULT BLOOD-UR Negative LAB L400.3800 Negative /ul High LEUK 25 ESTERASE Performed By: #### L400.0100 #### [facility] [address] [place], [address] CBC, EMPLOYEE Collected: 10/20/2017 Status: F Source: [place] 7:09 AM [facility] REPOSITORY TYPE CODE TESTS RESULT OUT OF RANGE REFERENCE UNITS LAB L100.1000 4.4-11.0 K/mm3 Normal WBC 5.5 LAB L100.1200 4.2-5.4 M/mm3 Normal RBC 4.46 LAB L100.1300 12.0-15.0 g/dl Normal HGB 13.4 LAB L100.1400 37-47 % Normal HCT 39.9 LAB L100.1500 81-99 fL Normal MCV 89.5 LAB L100.1600 27.0-32.0 pg Normal MCH 30.0 LAB L100.1700 32-36 g/gl Normal MCHC 33.6 LAB L100.1810 11.6-14.6 % Normal RDW CV 13.0 LAB L100.1820 35.1-43.9 fl Normal RDW SD 42.2 LAB L100.1900 150-450 K/mm3 Normal PLT 238 LAB L100.2000 6.2-12.0 fl Normal MPV 8.6 LAB L100.2110 47-70 % Normal NEUT% 63.3 LAB L100.2210 19-41 % Normal LY% 27.1 LAB L100.2310 0-10 % Normal MONO% 7.4 LAB L100.2410 0-5 % Normal EO% 1.6 LAB L100.2510 0-1 % Normal BASO% 0.4 LAB L100.2620 2.0-7.7 X10 3/uL Normal Absolute Neut 3.5 LAB L100.2720 0.83-4.51 X10 3/ul Normal Absolute Lymph 1.50 Performed By: #### L100.0200 #### [facility] [address] [facility]. [place], [place], [id number] NICOTINE URINE DRUG Collected: 10/20/2017 Status: F Source: [place] SCREEN 7:09 AM [facility] REPOSITORY TYPE CODE TESTS RESULT OUT OF RANGE REFERENCE UNITS LAB L505.6250 TO BE Normal CONFIRMED Result Comment: CONFIRMATORY TESTING FOR ALL POSITIVE URINE DRUG SCREEN RESULTS WILL ONLY BE SENT OUT UPON PHYSICIAN ORDER. The results of Urine Drug Screen methods provide only preliminary analytical test results. A more specific alternate chemical method must be used in order to obtain a confirmed analytical result. Gas chromatography/mass spectrometery (GC/MS) is the preferred confirmatory method. Clinical consideration and professional judgement should be applied to any drug of abuse test result, particularly when preliminary positive results are used. LAB L505.6270 <200 ng/mL Normal COT DRG Negative SCREEN Result Comment: Cotinine is the first-stage metabolite of Nicotine. Performed By: #### L505.6240 #### [facility] [address] [facility] [place], [address] EMPLOYEE PROFILE Collected: 10/20/2017 Status: F Source: [place] 7:09 AM [facility] REPOSITORY TYPE CODE TESTS RESULT OUT OF RANGE REFERENCE UNITS LAB L501.0100 74-106 mg/dL High GLU 125 Result Comment: Fasting Glucose result from 100 to 125 mg/dL suggests IMPAIRED HOMEOSTASIS per A.D.A. criteria. Please note revised GLUCOSE reference range effective 2017. LAB L501.1000 7-18 mg/dL High BUN 20 LAB L501.1100 0.55-1.02 mg/dL Normal CREAT,SERUM 0.96 Result Comment: The validity of the calculated GFR AND GFRAA in patients over 70 years has not been determined. Clinical correlation is essential. LAB L501.1110 >60 mL/min Normal EST GFR 64 Result Comment: Non- GFR Calc LAB L501.1115 >60 mL/min Normal EST GFR - AA 78 Result Comment: GFR Calc LAB L501.1300 10-20 RATIO High BUN/CRE 20.8 LAB L501.1400 2.6-6.0 mg/dL High URIC 9.6 Result Comment: The drugs N-Acetylcysteine and Metamizole may falsely depress this assay. LAB L501.1500 6.4-8.2 g/dL Normal T PROT 7.5 LAB L501.1800 3.2-5.0 g/dL Normal ALB 3.8 LAB L501.1950 2.2-4.2 g/dL Normal GLOB 3.7 LAB L501.2000 0.9-2.4 RATIO Normal A/G 1.0 LAB L501.2200 8.5-10.1 mg/dL Normal CA 8.9 LAB L501.2300 2.5-4.9 mg/dL Normal PHOS 3.0 LAB L501.4100 15-37 U/L Normal AST 37 LAB L501.4305 45-117 U/L Normal ALK P 79 LAB L501.4405 13-56 U/L Normal ALT 53 LAB L501.4600 0.20-1.00 mg/dL Normal T BILI 0.60 LAB L501.4700 0.00-0.30 mg/dL Normal D BILI 0.13 LAB L501.4900 200 mg/dL High CHOL 202 Result Comment: <200 mg/dL Desirable 200-240 mg/dL Borderline >240 mg/dL High Risk LAB L501.5000 mg/dL High TRIG 300 Result Comment: The drugs N-Acetylcysteine and Metamizole may falsely depress this assay. Serum Triglycerides Reference Interval Normal <150 mg/dL Borderline high 150 - 199 mg/dL High 200 - 499 mg/dL Very High > or = 500 mg/dL LAB L501.5300 136-145 mmol/L Normal NA 139 LAB L501.5600 3.5-5.1 mmol/L Normal K 3.8 LAB L501.5900 98-107 mmol/L Normal CL 102 LAB L501.6100 21.0-32.0 mmol/L Normal CO2 29.0 LAB L501.6200 5-15 Normal 8 GAP LAB L501.6400 mg/dL Low HDL 34 Result Comment: The drugs N-Acetylcysteine and Metamizole may falsely depress this assay. Reference Range HDL <40 mg/dL Low HDL Cholesterol HDL >or= 60 mg/dL High HDL Cholesterol LAB L501.6475 Normal CHOL:HDL 5.90 LAB L501.6500 0-130 mg/dL Normal LDL 108 LAB L501.6600 5-40 mg/dL High VLDL 60 LAB L504.2610 84-246 U/L Normal LDH 223 Performed By: #### L500.2900 #### [facility] [address] [place], [address] CBC W/DIFF, AUTOMATED Collected: 10/20/2017 Status: F Source: [place] 7:08 AM [facility] REPOSITORY TYPE CODE TESTS RESULT OUT OF RANGE REFERENCE UNITS LAB L100.1000 4.4-11.0 K/mm3 Normal WBC 5.6 LAB L100.1200 4.2-5.4 M/mm3 Normal RBC 4.38 LAB L100.1300 12.0-15.0 g/dl Normal HGB 13.1 LAB L100.1400 37-47 % Normal HCT 39.0 LAB L100.1500 81-99 fL Normal MCV 89.0 LAB L100.1600 27.0-32.0 pg Normal MCH 29.9 LAB L100.1700 32-36 g/gl Normal MCHC 33.6 LAB L100.1810 11.6-14.6 % Normal RDW CV 13.0 LAB L100.1820 35.1-43.9 fl Normal RDW SD 41.8 LAB L100.1900 150-450 K/mm3 Normal PLT 233 LAB L100.2000 6.2-12.0 fl Normal MPV 8.6 LAB L100.2100 47-70 % Normal NEUT% 63.0 LAB L100.2200 19-41 % Normal LY% 28.9 LAB L100.2300 0-10 % Normal MONO% 5.5 LAB L100.2400 0-5 % Normal EO% 2.1 LAB L100.2500 0-1 % Normal BASO% 0.5 LAB L100.2550 0.0-0.9 % Normal IM GRAN % 0.000 Result Comment: IG% - Immature Granulocytes (promyelocytes, myelocytes and metamyelocytes) > 1% indicates that a LEFT SHIFT is Present. LAB L100.2620 2.0-7.7 X10 3/uL Normal Absolute Neut 3.6 LAB L100.2720 0.83-4.51 X10 3/ul Normal Absolute Lymph 1.63 Performed By: #### L100.0100 #### [facility] [address] [place], [place], [address] COMPREHENSIVE METABOLIC Collected: 10/20/2017 Status: F Source: [facility] 7:08 AM [facility] REPOSITORY TYPE CODE TESTS RESULT OUT OF RANGE REFERENCE UNITS LAB L501.0100 74-106 mg/dL High GLU 122 Result Comment: Fasting Glucose result from 100 to 125 mg/dL suggests IMPAIRED HOMEOSTASIS per A.D.A. criteria. Please note revised GLUCOSE reference range effective 2017. LAB L501.1000 7-18 mg/dL High BUN 19 LAB L501.1100 0.55-1.02 mg/dL Normal CREAT,SERUM 0.97 Result Comment: The validity of the calculated GFR AND GFRAA in patients over 70 years has not been determined. Clinical correlation is essential. LAB L501.1110 >60 mL/min Normal EST GFR 64 Result Comment: Non- GFR Calc LAB L501.1115 >60 mL/min Normal EST GFR - AA 77 Result Comment: GFR Calc LAB L501.1300 10-20 RATIO Normal BUN/CRE 19.6 LAB L501.1500 6.4-8.2 g/dL T Normal PROT 7.5 LAB L501.1800 3.2-5.0 g/dL Normal ALB 3.8 LAB L501.1950 2.2-4.2 g/dL Normal GLOB 3.7 LAB L501.2000 0.9-2.4 RATIO Normal A/G 1.0 LAB L501.2200 8.5-10.1 mg/dL CA Normal 8.8 LAB L501.4100 15-37 U/L Normal AST 37 LAB L501.4305 45-117 U/L Normal ALK P 78 LAB L501.4405 13-56 U/L Normal ALT 54 LAB L501.4600 0.20-1.00 mg/dL T Normal BILI 0.50 LAB L501.5300 136-145 mmol/L NA Normal 139 LAB L501.5600 3.5-5.1 mmol/L K Normal 3.5 LAB L501.5900 98-107 mmol/L CL Normal 102 LAB L501.6100 21.0-32.0 mmol/L Normal CO2 28.0 LAB L501.6200 5-15 Normal GAP 9 Performed By: #### L500.4050, L501.3620 #### [facility] [address] [place], [place], [id number] CPK TOTAL, CREATINE Collected: 10/20/2017 Status: F Source: [place] KINASE 7:08 AM [facility] REPOSITORY TYPE CODE TESTS RESULT OUT OF RANGE REFERENCE UNITS LAB L501.3620 26-192 U/L Normal CPK TOTAL 184 Performed By: #### L500.4050, L501.3620 #### [facility] [address] [place], [address] CANCER ANTIGEN 125 Collected: 10/20/2017 Status: F Source: [place] 7:08 AM [facility] REPOSITORY TYPE CODE TESTS RESULT OUT OF RANGE REFERENCE UNITS LAB L3100.5000 0.0-38.1 U/mL Normal CA125 14.3 2303 Result Comment: [place] ECLIA methodology Performed By: #### L3100.5000, L3100.7000 #### [facility] (refer to report for specific site) refer to report for address and phone number ALDOLASE Collected: 10/20/2017 Status: F Source: [place] 7:08 AM [facility] REPOSITORY TYPE CODE TESTS RESULT OUT OF RANGE REFERENCE UNITS LAB L3100.7000 3.3-10.3 U/L Normal ALDOLASE 2030 4.4 Result Comment: Performed at: - [facility] [address] [id number] [place]: Noel Londono PhD, Phone: [phone] Performed By: #### L3100.5000, L3100.7000 #### [facility] (refer to report for specific site) refer to report for address and phone number DOWNTIME REPORT Observed: 10/08/2017 Status: F Source: [place] 11:43 AM [facility] REPOSITORY [facility] Medical Records Department [address] [facility] [place] [address] Downtime Report MR#: [id number] Acct: [id number] Name: GABRIEL ZAMUDIO Rep #: [id number] : 1965 52 From: Greyson Adames PCP: Willi Appiah Status: REG CLI This patient was seen during an EMR downtime September 21, 2017 - September 28, 2017. This patient may have a combination of paper and electronic documentation or all paper documentation. All documentation is viewable within the e-chart portion of [employer] for each patient visit. INITAL EVALUATION (1) Observed: 08/21/2017 Status: F Source: [place] - PT 2:52 PM [facility] REPOSITORY [facility] Physical Therapy [facility] [address] [place] [address] Fax REHABILITATION SERVICES INITIAL EVALUATION MR#: [id number] Acct: [id number] Name: GABRIEL ZAMUDIO Rep #: [id number] : 1965 51 From: Azar Oneil PT, Cert. MDT, OCS Referring DrJesse: Jeannine Castillo Status: REG RCR Insurance: [facility] SELF PAY INSURANCE Patient's Visit Information GABRIEL ZAMUDIO is a 51 year old F referred to Physical Therapy by Jeannine Castillo, with a diagnosis of HNP CERVICAL. Date of Evaluation: 08/19/17 Physical Therapist: Azar Oneil PT, - Visit Plan Frequency: 2x /Week Duration: 5WEEKS Plan: START ROM CERVICAL IN 3 WEEKS. OKAY WEAN SOFT CERVICAL COLLAR. CERVICAL ISOMTRICS ,POSTURAL EX'S,STRENGTHENING - Subjective Subjective: This 51 y/o female presents to physical therapy with HNP cervical with patient underwent s/p 07/31/17 cervical discectomy fusion with screws /plate done Dr Adames [facility] d/c 08/01/17.Surgery was anterio approah. Intially no driving ,10 # restriction ,start Cervical ROM in 3weeks,begin isomtrics.Prior to surgery trried PT made it was ,epidural injections. Then had MRI showed HNP.Patient had radicular symptoms prior to surgery which has resolved after surgery . Patient has no parathesia/tingling. Currently,symptoms worse driving,sitting.Denies [employer] /tinnutus/dizziness/nausea. Patient surgery has affects ability to RTW ,ADL'S and housework tasks.RTW tenative . 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 SOCAIL: - Pain Bilateral Neck Pain Intensity (Out of 10): 2 Pain Intensity Range: 10 - Objective POSTURE: mild foward head. SKIN: inscion well approximate anterior. NEURO: denies parathesia/tingling, reflexes C5-6-7 2/3. AROM: BUE WFL. MMT: BUE 4/5 except shoulder 4-/5. CODIFIER STRENGTH: Left 60# ,right 55# dynamator. CERVICAL ROM: flexion min/mod loss,lateral flexion ,rotation mod loss,extension mod loss - Special Tests C/S Radiculapathy - Left Upper limb tension test: Negative C/S Radiculapathy - Right Upper limb tension test: Negative - Goals Goal 1:: Independant with HEP. Goal Time Frame: 4-6 Weeks Goal 2:: Independant with posture for ADL'S Goal Time Frame: 4-6 Weeks Goal 3:: Decrease pain by 75% or greater with function with ADL'S and housework/job denmands. Goal Time Frame: 4-6 Weeks Goal 4:: Patient improve lumbar ROM min/mod loss to improve function with ADL'S Goal Time Frame: 4-6 Weeks Goal 5:: Patient be able to return to ADL'S and job demnads/housework tasks with min limiations Goal Time Frame: 4-6 Weeks - Rehabilitation Potential Physical Therapy Diagnosis: This patient undewent s/p cervical fusion anterior C5-6 with decrease cervical ROM ,strength,impairs ablitity to RTW and ADL'S thus benifit from PT Rehabilitation Potential: Good - Anticipated Interventions Patient/Client Instruction: Educate patient on: Condition, Plan of Care For the Purpose of:: To decrease pain, To increase ROM, To increase oxygenation perfusion, To improve ability to perform ADL's, To increase tolerance to activity/condition/position, To improve ability of physical actions for home/community/work/leisure, To improve health of tissue, To decrease soft tissue restriction, To increase flexibility/ROM, To assume or resume ADL's, To foster healthy habits, To improve ability to perform tasks related to life management Therapeutic Exercise to Include: Strength training, Postural training, Flexibilty training, Active ROM Comment: BUE,CERVICAL ROM For the Purpose of:: To decrease pain, To increase ROM, To improve muscle performance and motor function, To improve ability to perform ADL's, To increase tolerance to activity/condition/position, To improve ability of physical actions for home/community/work/leisure, To improve health of tissue, To decrease soft tissue restriction, To increase flexibility/ROM, To improve ability to perform tasks related to life management TENS: Yes IF ES: Yes Cryotherapy (ice pack, ice massage): Yes Thermo therapy (hot pack): Yes For the Purpose of:: To decrease pain, To increase ROM, To improve health of tissue, To decrease soft tissue restriction, To improve decision making Thank you for the opportunity to evaluate your patient. For Medicare and Medicare HMO plans, please review the plan of care and approve it. It will need to be FAXED BACK to us at [phone] for Medicare purposes. Please let me know if there are questions or concerns regarding this plan of care. Physician Signature: Date: <Electronically signed by Azar Oneil PT, Cert. T, OCS> 08/21/17 1452 CC: Jeannine Appiah ABDI Signed For Medicare only, by signing this I certify the plan of care. Physicians Signature Date CBC W/DIFF, AUTOMATED Collected: 07/28/2017 Status: F Source: [place] 10:38 AM [facility] REPOSITORY TYPE CODE TESTS RESULT OUT OF RANGE REFERENCE UNITS LAB L100.1000 4.4-11.0 K/mm3 Normal WBC 5.5 LAB L100.1200 4.2-5.4 M/mm3 Normal RBC 4.62 LAB L100.1300 12.0-15.0 g/dl Normal HGB 14.1 LAB L100.1400 37-47 % Normal HCT 41.8 LAB L100.1500 81-99 fL Normal MCV 90.5 LAB L100.1600 27.0-32.0 pg Normal MCH 30.5 LAB L100.1700 32-36 g/gl Normal MCHC 33.7 LAB L100.1810 11.6-14.6 % Normal RDW CV 13.4 LAB L100.1820 35.1-43.9 fl Normal RDW SD 43.6 LAB L100.1900 150-450 K/mm3 Normal PLT 235 LAB L100.2000 6.2-12.0 fl Normal MPV 8.7 LAB L100.2100 47-70 % Normal NEUT% 66.7 LAB L100.2200 19-41 % Normal LY% 23.7 LAB L100.2300 0-10 % Normal MONO% 7.5 LAB L100.2400 0-5 % Normal EO% 1.5 LAB L100.2500 0-1 % Normal BASO% 0.4 LAB L100.2550 0.0-0.9 % Normal IM GRAN % 0.200 Result Comment: IG% - Immature Granulocytes (promyelocytes, myelocytes and metamyelocytes) > 1% indicates that a LEFT SHIFT is Present. LAB L100.2620 2.0-7.7 X10 3/uL Normal Absolute Neut 3.7 LAB L100.2720 0.83-4.51 X10 3/ul Normal Absolute Lymph 1.30 Performed By: #### L100.0100 #### [facility] [address] [place], [address] COMPREHENSIVE METABOLIC Collected: 07/28/2017 Status: F Source: [place] [facility] 10:38 AM [facility] REPOSITORY TYPE CODE TESTS RESULT OUT OF RANGE REFERENCE UNITS LAB L501.0100 74-106 mg/dL High GLU 123 Result Comment: Fasting Glucose result from 100 to 125 mg/dL suggests IMPAIRED HOMEOSTASIS per A.D.A. criteria. Please note revised GLUCOSE reference range effective 2017. LAB L501.1000 7-18 mg/dL High BUN 19 LAB L501.1100 0.55-1.02 mg/dL High CREAT,SERUM 1.08 Result Comment: The validity of the calculated GFR AND GFRAA in patients over 70 years has not been determined. Clinical correlation is essential. LAB L501.1110 >60 mL/min Low EST GFR 56 Result Comment: Non- GFR Calc LAB L501.1115 >60 mL/min Normal EST GFR - AA 68 Result Comment: GFR Calc LAB L501.1300 10-20 RATIO Normal BUN/CRE 17.6 LAB L501.1500 6.4-8.2 g/dL T Normal PROT 7.9 LAB L501.1800 3.2-5.0 g/dL Normal ALB 4.1 LAB L501.1950 2.2-4.2 g/dL Normal GLOB 3.8 LAB L501.2000 0.9-2.4 RATIO Normal A/G 1.1 LAB L501.2200 8.5-10.1 mg/dL CA Normal 8.9 LAB L501.4100 15-37 U/L High AST 40 LAB L501.4305 45-117 U/L Normal ALK P 72 LAB L501.4405 13-56 U/L Normal ALT 53 Result Comment: Please note revised ALT reference range effective 2017. LAB L501.4600 0.20-1.00 mg/dL Normal T BILI 0.70 LAB L501.5300 136-145 mmol/L Normal NA 141 LAB L501.5600 3.5-5.1 mmol/L Normal K 4.3 LAB L501.5900 98-107 mmol/L Normal CL 102 LAB L501.6100 21.0-32.0 mmol/L Normal CO2 31.0 LAB L501.6200 5-15 Normal GAP 8 Performed By: #### L500.4050, L501.3620 #### [facility] [address], [address] CPK TOTAL, CREATINE Collected: 07/28/2017 Status: F Source: [place] 10:38 AM [facility] REPOSITORY TYPE CODE TESTS RESULT OUT OF RANGE REFERENCE UNITS LAB L501.3620 26-192 U/L High CPK TOTAL 201 Performed By: #### L500.4050, L501.3620 #### [facility] [address] [facility] [place], [address] CANCER ANTIGEN 125 Collected: 07/28/2017 Status: F Source: [place] 10:38 AM [facility] REPOSITORY TYPE CODE TESTS RESULT OUT OF RANGE REFERENCE UNITS LAB L3100.5000 0.0-38.1 U/mL Normal CA125 14.4 2303 Result Comment: Up My Game ECLIA methodology Performed By: #### L3100.5000, L3100.7000 #### [facility] (refer to report for specific site) refer to report for address and phone number ALDOLASE Collected: 07/28/2017 Status: F Source: [place] 10:38 AM [facility] REPOSITORY TYPE CODE TESTS RESULT OUT OF RANGE REFERENCE UNITS LAB L3100.7000 3.3-10.3 U/L Normal ALDOLASE 2030 5.7 Result Comment: Performed at: - [facility] [id number] [place]: Noel Londono PhD, Phone: [phone] Performed By: #### L3100.5000, L3100.7000 #### [facility] (refer to report for specific site) refer to report for address and phone number ALLERGIES ALLERGIES DATE TYPE / CODE NAME / CODE REACTION SEVERITY SOURCE 04/05/2018 Drug vancomycin/F [facility] Allergy/4160 [id number](RX SYNDROME Hospital 22200(SNOMED NORM) Repository CT) ENCOUNTERS ENCOUNTERS ADMIT/DISCHARGE ACCOUNT ADMITTING ENCOUNTER LOCATION SOURCE NUMBER CLASS 05/12/2018 [id number] Ambulatory Nad[place] 1 [facility] Hospital ing:LAB Repository 04/06/2018/ [id number] Ambulatory BMSBuilding:B [place] 8 1 [place] Repository 04/06/2018/ [id number] Ambulatory [place] Nadia 8 3 [facility] ing:ENRoom: Repository AC11 03/25/2018 [id number] Ambulatory Nadia [place] 7 [facility] Hospital ing:MEDOUTP Repository 03/08/2018/ [id number] Ambulatory BMSBuilding:B [place] 8 2 [facility] Repository 02/19/2018 [id number] Ambulatory Nadia Nadia 8 [facility] ing:CT Repository 02/18/2018/ [id number] Ambulatory BMSBuilding:B [place] 8 8 [facility] Repository 02/15/2018 [id number] Ambulatory Nadia Nadia 6 [facility] Hospital ing:LAB Repository 01/08/2018/ [id number] Ambulatory Nadia [place] 8 8 [facility] Hospital ing:PT Repository 01/05/2018/ [id number] Ambulatory BMSBuilding:B Nadia 8 3 [facility] Repository 12/28/2017 [id number] Ambulatory [place] Nadia 6 [facility] Hospital ing:MEDOUTP Repository 12/15/2017/ [id number] Ambulatory BMSBuilding:B [place] 8 8 [facility] Repository 12/02/2017/ [id number] Ambulatory [place] Nadia 8 9 [facility] Hospital ing:SDC Repository 12/02/2017 [id number] Ambulatory BMSBuilding:B [place] 8 [facility] Repository 11/26/2017/ [id number] Ambulatory BMSBuilding:B [place] 8 8 [facility] Repository 11/23/2017/ [id number] Allen Fernandez Ambulatory Nadia [place] 8 9 [facility] ing:KQ5Kxlg: Repository LC751Wme: 1 11/23/2017 [id number] Aleln Fernandez Ambulatory BMSBuilding:B Nad[place] 2 [facility] Repository 11/23/2017 [id number] Allen Fernandez Ambulatory BMSBuilding:B [place] 6 [facility] Repository 11/23/2017/ [id number] Ambulatory BMSBuilding:B [place] 8 4 [place] Repository 11/23/2017 [id number] Ambulatory [place] 2 [facility] ing:LABSPEC Repository 11/23/2017/ [id number] Ambulatory BMSBuilding:B [place] 8 0 [facility] Repository 11/19/2017/ [id number] Emergency [place] Nadia 8 9 [facility] ing:ED Repository 10/20/2017 [id number] Ambulatory [place] 6 [facility] ing:EMPH Repository 10/20/2017 [id number] Ambulatory Nad[place] 5 [facility] ing:LAB Repository 09/28/2017 [id number] Ambulatory Nad[place] 5 [facility] ing:MEDOUTP Repository 09/15/2017/ [id number] Ambulatory Nadia [place] 8 1 [facility] ing:PT Repository 07/28/2017 [id number] Ambulatory [place] 4 [facility] ing:LAB Repository 07/09/2017 [id number] Ambulatory Nadia Nadia 8 [facility] ing:MEDOUTP Repository PAYERS PAYERS ENCOUNTER GUARANTOR PAYER SUBSCRIBER SOURCE 05/12/2018 GABRIEL Chery Primary Insurance:[facility] GABRIEL Zuniga [id number] [facility]: [facility] [id number] Hospital 52741Llb: (330) Number: Repository [phone] HP) [id number] Date:8099-47-83BF [address] [address]AZHMPSDZL, [place] [address]CX: CHECK WEBSITE 05/12/2018 Secondary NOT GIVENUNK [place] Insurance:SELF PAY [facility] Number: Effective Repository Date:2018-05-12 04/06/2018 GABRIEL R Primary Insurance:[facility] GABRIEL Chery [place] [id number] [facility] [id number] Hospital [address]22[address]Axr: (330) Number: Repository [phone] () [id number] Date:9042-52-83SY [address] [address]EZDEYOWEV, [place] [address]OK: CHECK WEBSITE 04/06/2018 Secondary NOT GIVENUNK [place] Insurance:SELF PAY [facility] Number: Effective Repository Date:2018-04-06 04/06/2018 GABRIEL R Primary Insurance:[facility] GABRIEL Chery Nad[place] [id number] [facility] [id number] Hospital 27[address]Tcj: (330) Number: Repository [phone] () [id number] Date:9741-54-63ZJ [facility] [address]853FZPJUXHXL, [place] [address]JU: CHECK WEBSITE 04/06/2018 Secondary NOT GIVENUNK Nadia Insurance:SELF PAY [facility] Number: Effective Repository Date:2018-03-08 03/25/2018 GABRIEL R Primary Insurance:[facility] GABRIEL Chery Nadia [id number] [facility] [id number] Hospital [address]Iuq: (330) Number: Repository [phone] () [id number] Date:6743-59-14JL [address] [address]JBPRNRIAR, [place] [address]YL: CHECK WEBSITE 03/25/2018 Secondary NOT GIVENUNK [place] Insurance:SELF PAY [facility] Number: Effective Repository Date:2018-01-18 03/08/2018 GABRIEL R Primary Insurance:[facility] GABRIEL Chery [place] [id number] [facility] [id number] Hospital 360[address]Yob: (330) Number: Repository [phone] () [id number] Date:3032-92-19LY [address] [address]NIMRJGFDW, [place] [address]UD: CHECK WEBSITE 03/08/2018 Secondary NOT GIVENUNK Nadia Insurance:SELF PAY [facility] Number: Effective Repository Date:2018-03-08 02/19/2018 GABRIEL R Primary Insurance:[facility] GABRIEL R Nadia [id number] [facility] [id number] [address]Tel: (330) Number: Repository [phone] () [id number] Date:9112-24-53QZ [address] [address]HUUYFJTFX, [place] [address]LG: CHECK WEBSITE 02/19/2018 Secondary NOT GIVENUNK Nadia Insurance:SELF PAY [facility] Number: Effective Repository Date:2018-02-12 02/18/2018 GABRIEL R Primary Insurance:[facility] GABRIEL R Nadia [id number] [facility] [id number] Hospital [address]Vab: (330) Number: Repository [phone] () [id number] Date:4890-86-59HX [address] [address]UQVGMKQVZ, [place] [address]SO: CHECK WEBSITE 02/18/2018 Secondary NOT GIVENUNK [place] Insurance:SELF PAY [facility] Number: Effective Repository Date:2018-02-18 02/15/2018 GABRIEL R Primary Insurance:[facility] GABRIEL R [place] [id number] [facility] [id number] Hospital [address]Din: (330) Number: Repository [phone] () [id number] Date:7343-85-90US [address] [address]DZNNHAGBZ, [place] [address]WA: CHECK WEBSITE 02/15/2018 Secondary NOT GIVENUNK Nadia Insurance:SELF PAY [facility] Number: Effective Repository Date:2018-02-15 01/08/2018 GABRIEL R Primary Insurance:[facility] GABRIEL R [place] [id number] [facility] [id number] Hospital 82170Eip: (330) Number: Repository [phone] () [id number] Date:0561-05-08GD [address] [address]PROMVOXMO, [place] [address]DU: CHECK WEBSITE 01/08/2018 Secondary NOT GIVENUNK Nadia Insurance:SELF PAY [facility] Number: Effective Repository Date:2017-12-15 01/05/2018 GABRIEL R Primary Insurance:[facility] GABRIEL Chery [place] [id number] [facility]: [facility] [id number] Hospital 55656Jlt: (330) Number: Repository [phone] () [id number] Date:2788-57-52GN [address] [address]RGEXNGDHT, [place] [address]OK: CHECK WEBSITE 01/05/2018 Secondary NOT GIVENUNK Nadia Insurance:SELF PAY [facility] Number: Effective Repository Date:2018-01-05 12/28/2017 GABRIEL R Primary Insurance:[facility] GABRIEL Chery [place] [id number] [facility]: [facility] [id number] Hospital 633[address]Wet: (330) Number: Repository [phone] () [id number] Date:3732-83-62OF [address] [address]QXVWBDKJM, [place] [address]OR: CHECK WEBSITE 12/28/2017 Secondary NOT GIVENUNK [place] Insurance:SELF PAY [facility] Number: Effective Repository Date:2017-10-28 12/15/2017 GABRIEL R Primary Insurance:[facility] GABRIEL Chery [place] [id number] [facility]: [facility] [id number] Hospital 388[address]Qnm: (330) Number: Repository [phone] () [id number] Date:8356-94-84MQ [address] [address]OMWVAVXUN, [place] [address]NV: CHECK WEBSITE 12/15/2017 Secondary NOT GIVENUNK Nadia Insurance:SELF PAY [facility] Number: Effective Repository Date:2017-12-15 12/02/2017 GABRIEL R Primary Insurance:[facility] GABRIEL Chery [place] [id number] [facility] [id number] Hospital 29869Mxi: (330) Number: Repository [phone] () [id number] Date:8908-20-57SB [address] [address]TVNSSFFSI, [place] [address]NR: CHECK WEBSITE 12/02/2017 Secondary NOT GIVENUNK [place] Insurance:SELF PAY [facility] Number: Effective Repository Date:2017-11-26 12/02/2017 GABRIEL R Primary Insurance:[facility] GABRIEL Chery [place] [id number] [facility] [id number] Hospital 28648Ejy: (330) Number: Repository [phone] () [id number] Date:5695-48-88JU [address] [address]DHDCCCEBR, [place] [address]PV: CHECK WEBSITE 12/02/2017 Secondary NOT GIVENUNK [place] Insurance:SELF PAY [facility] Number: Effective Repository Date:2017-12-02 11/26/2017 GABRIEL R Primary Insurance:[facility] GABRIEL Zuniga [id number] [facility]: [facility] [id number] Hospital 97[address]Hcp: (330) Number: Repository [phone] () [id number] Date:3556-86-82YR [address] [address]WUBEYRTYH, [place] [address]NY: CHECK WEBSITE 11/26/2017 Secondary NOT GIVENUNK [place] Insurance:SELF PAY [facility] Number: Effective Repository Date:2017-11-26 11/23/2017 GABRIEL R Primary Insurance:[facility] GABRIEL Chery [place] [id number] [facility]: [facility] [id number] Hospital 75684Gdu: (330) Number: Repository [phone] () [id number] Date:9199-58-58JJ [address] [address]ARITZWTYT, [place] [address]AJ: CHECK WEBSITE 11/23/2017 Secondary NOT GIVENUNK [place] Insurance:SELF PAY [facility] Number: Effective Repository Date:2017-11-23 11/23/2017 GABRIEL R Primary Insurance:[facility] GABRIEL Chery Nadia [id number] [facility] [id number] [place] [address]Tel: (330) Number: Repository [phone] () [id number] Date:0881-17-03WV [address] [address]DKTARIQBG, [place] [address]VF: CHECK WEBSITE 11/23/2017 Secondary NOT GIVENUNK Nadia Insurance:SELF PAY [facility] Number: Effective Repository Date:2017-11-23 11/23/2017 GABRIEL R Primary Insurance:[facility] GABRIEL R [place] [id number] [facility] [id number] [place]ille [address]26[address]Tel: (330) Number: Repository [phone] () [id number] Date:5132-54-07VM [address] [address]CDXRRNSHA, [place] [address]LZ: CHECK WEBSITE 11/23/2017 Secondary NOT GIVENUNK Nadia Insurance:SELF PAY [facility] Number: Effective Repository Date:2017-11-23 11/23/2017 GABRIEL R Primary Insurance:[facility] GABRIEL Chery Nadia [id number] [facility] [id number] [place]ille 19362691Tel: (330) Number: Repository [phone] () [id number] Date:0567-47-07QV [address] [address]YRAVVGKHA, [place] [address]QZ: CHECK WEBSITE 11/23/2017 Secondary NOT GIVENUNK Nadia Insurance:SELF PAY [facility] Number: Effective Repository Date:2017-11-23 11/23/2017 GABRIEL R Primary Insurance:[facility] GABRIEL R [place] [id number] [facility] [id number] Hospital 00741Rik: (330) Number: Repository [phone] () [id number] Date:7648-22-01TG [address] [address]ZGZOMIQBN, [place] [address]JP: CHECK WEBSITE 11/23/2017 Secondary NOT GIVENUNK [place] Insurance:SELF PAY [facility] Number: Effective Repository Date:2017-11-23 11/23/2017 GABRIEL R Primary Insurance:[facility] GABRIEL R Nadia [id number] [facility] [id number] Hospital 14778Aow: (330) Number: Repository [phone] () [id number] Date:5385-67-22KE [address] [address]BHMIOTCNS, [place] [address]DC: CHECK WEBSITE 11/23/2017 Secondary NOT GIVENUNK [place] Insurance:SELF PAY [facility] Number: Effective Repository Date:2017-11-23 11/19/2017 GABRIEL R Primary Insurance:[facility] GABRIEL Chery [place] [id number] [facility]: [facility] [id number] [address]Dvg: (330) Number: Repository [phone] () [id number] Date:4012-59-33OM [address] [address]XEISKOJNN, [place] [address]LC: CHECK WEBSITE 11/19/2017 Secondary NOT GIVENUNK [place] Insurance:SELF PAY [facility] Number: Effective Repository Date:2017-11-19 10/20/2017 GABRIEL R Primary NOT GIVENUNK Nadia [id number] yl Insurance:SELF PAY [facility] [address]Yfg: (330) Number: Effective Repository [phone] () Date:2017-10-20 10/20/2017 GABRIEL R Primary Insurance:[facility] GABRIEL Chery Nadia [id number] [facility]: [facility] [id number] [address]Jxg: (330) Number: Repository [phone] () [id number] Date:5437-40-58BY [address] [address]XQNTRBEED, [place] [address]MN: CHECK WEBSITE 10/20/2017 Secondary NOT GIVENUNK [place] Insurance:SELF PAY [facility] Number: Effective Repository Date:2017-10-20 09/28/2017 GABRIEL R Primary Insurance:[facility] GABRIEL Chery Nadia [id number] [facility] [id number] [place] [id number]: (330) Number: Repository [phone] () [id number] Date:4724-79-12PT [address] [address]MEHQHNJRQ, [place] [address]UX: CHECK WEBSITE 09/28/2017 Secondary NOT GIVENUNK Nadia Insurance:SELF PAY [facility] Number: Effective Repository Date:2017-07-09 09/15/2017 GABRIEL R Primary Insurance:[facility] GABRIEL Chery Nadia [id number] [facility] [id number] Hospital [address]Zjl: (330) Number: Repository [phone] () [id number] Date:1631-35-95NV [address] [address]XZSKPKHEQ, [place] [address]MI: CHECK WEBSITE 09/15/2017 Secondary NOT GIVENUNK Nadia Insurance:SELF PAY [facility] Number: Effective Repository Date:2017-08-13 07/28/2017 GABRIEL R Primary Insurance:[facility] GABRIEL Chery Nadia [id number] [facility] [id number] Hospital 378[address]Xao: (330) Number: Repository [phone] () [id number] Date:7813-56-77UH [address] [address]NQYHOZNQI, [place] [address]IG: CHECK WEBSITE 07/28/2017 Secondary NOT GIVENUNK [place] Insurance:SELF PAY [facility] Number: Effective Repository Date:2017-07-28 07/09/2017 GABRIEL R Primary Insurance:[facility] GABRIEL Zuniga [id number] [facility]-DSMUEZDOB: [facility] [id number] Hospital [address]Cpy: (330) Number: Repository [phone] () [id number] Date:2675-51-36WA [address] [address]LVZXWGLEF, [place] [address]CA: CHECK WEBSITE 07/09/2017 Secondary NOT GIVENRODRIGO Zuniga Insurance:SELF PAY [facility] Number: Effective Repository Date:2017-06-04
== END 2018-04-06 08:16 | disposition home or self-care (01) ==
LOC: EN 05:44 → AC 05:45
PROVIDERS: Family Provider Family Medicine; PCP Family Medicine; Referring Provider Surgery; Visit Provider Surgery
PROC: 0DJD8ZZ Inspection of Lower Intestinal Tract, Via Natural or Artificial Opening Endoscopic (ICD-10-PCS; CPT 45378; principal; 2018-04-06 06:55)
DX: K21.9 Gastro-esophageal reflux disease without esophagitis (principal); K29.50 Unspecified chronic gastritis without bleeding; K44.9 Diaphragmatic hernia without obstruction or gangrene; Z12.11 Encounter for screening for malignant neoplasm of colon; D12.0 Benign neoplasm of cecum; K57.30 Diverticulosis of large intestine without perforation or abscess without bleeding; K64.9 Unspecified hemorrhoids; I69.311 Memory deficit following cerebral infarction; I10 Essential (primary) hypertension; M33.90 Dermatopolymyositis, unspecified, organ involvement unspecified; Z79.899 Other long term (current) drug therapy
CPT/HCPCS: 43239; 45385; 88305; 88342; J7120

== ENCOUNTER → 2018-05-12 09:56 | Outpatient (CLI) | payer OTHER, SELFPAY ==
[2018-05-12 11:05] LABS: Absolute Lymphocyte Count 1.17 X10^3/ul (0.83-4.51); Absolute Neutrophil Count 3.4 X10^3/uL (2.0-7.7); Basophil# 0.02 X10^3/uL; Basophil% 0.4 % (0-1); Eosinophil# 0.08 X10^3/uL; Eosinophils% 1.6 % (0-5); Hematocrit 40.8 % (37-47); Hemoglobin 13.4 g/dl (12.0-15.0); Lymphocyte # 1.17 X10^3/ul (4.0); Lymphocyte % 23.2 % (19-41); Mean Corp Hgb Conc 32.8 g/gl (32-36); Mean Corpuscular Volume 91.5 fL (81-99); Mean Platelet Vol. 8.9 fl (6.2-12.0); Monocyte# 0.35 X10^3/uL; Monocyte% 6.9 % (0-10); Neutrophil # 3.41 X10^3/uL (2.7-7.7); Neutrophil % 67.7 % (47-70); Platelet Count 216 K/mm3 (150-450); RBC Distribution Width CV 13.2 % (11.6-14.6); RBC Distribution Width SD 43.7 fl (35.1-43.9); Red Blood Count 4.46 M/mm3 (4.2-5.4)
[2018-05-12 11:06] LABS: POSITIVE COUNT NO; POSITIVE DIFFERENTIAL NO; POSITIVE MORPHOLOGY NO
[2018-05-12 11:42] LABS: ALB/GLOB Ratio 1.3 RATIO (0.9-2.4); AST(SGOT) 24 U/L (15-37); Alanine Aminotransfer ALT/SGPT 48 U/L (13-56); Albumin, Serum 4.1 g/dL (3.2-5.0); Alkaline Phosphatase 69 U/L (45-117); Anion Gap 7 (5-15); BUN 19 mg/dL (7-18); BUN/Creat Ratio 23.1 RATIO (10-20); CPK Total, Creatine Kinase 98 U/L (26-192); Chloride 104 mmol/L (98-107); Creatinine, Serum 0.82 mg/dL (0.55-1.02); EST Glomerular Filtration Rate 77 mL/min (>60); Est Glom Filt Rate - Afr Amer 93 mL/min (>60); Globulin 3.2 g/dL (2.2-4.2); Glucose 117 mg/dL (74-106); Potassium 4.5 mmol/L (3.5-5.1); Protein, Total 7.3 g/dL (6.4-8.2); Sodium Level 141 mmol/L (136-145)
[2018-05-14 11:28] LABS: Aldolase 4.3 U/L (3.3-10.3)
--- OUTSIDE RECORDS SUMMARY | 2018-07-14 06:34 | XMS RPT_ITS ---
:1965 Author Organization OHIP Support Name Relationship Address Phone CYRUS ZAMUDIO Unavailable [address] + [place] [address] [facility] Unavailable [address] + [place] [address] CYRUS ZAMUDIO Unavailable [address] + [place] [address] [facility] Unavailable [address] + [place] [address] CYRUS ZAMUDIO Unavailable [address] + [place] [address] [facility] Unavailable [address] + [place] [address] CYRUS ZAMUDIO Unavailable [address] + [place] [address] [facility] Unavailable [address] + [place] [address] JACIEL ZAMUDIOEW Unavailable [address] + [place] [address] [facility] Unavailable [address] + [place] [address] JACIEL ZAMUDIOEW Unavailable [address] + [place] [address] [facility] Unavailable [address] + [place] [address] CYRUS ZAMUDIO Unavailable [address] + [place] [address] [facility] Unavailable [address] + [place] [address] JACIEL ZAMUDIOEW Unavailable [address] + [place] [address] [facility] Unavailable [address] + [place] [address] MENUEZ, CYRUS Unavailable [address] + [place] [address] [facility] Unavailable [address] + [place] [address] MENUEZ, CYRUS Unavailable [address] + [place] [address] [facility] Unavailable [address] + [place] [address] MENUEZ, CYRUS Unavailable [address] + [place] [address] [facility] Unavailable [address] + [place] [address] MENUEZ, CYRUS Unavailable [address] + [place] [address] [facility] Unavailable [address] + [place] [address] MENUEZ, CYRUS Unavailable [address] + [place] [address] [facility] Unavailable [address] + [place] [address] MENUEZ, CYRUS Unavailable [address] + [place] [address] [facility] Unavailable [address] + [place] [address] MENUEZ, CYRUS Unavailable [address] + [place] [address] [facility] Unavailable [address] + [place] [address] MENUEZ, CYRUS Unavailable [address] + [place] [address] [facility] Unavailable [address] + [place] [address] MENUEZ, CYRUS Unavailable [address] + [place] [address] [facility] Unavailable [address] + [place] [address] MENUEZ, CYRUS Unavailable [address] + [place] [address] [facility] Unavailable [address] + [place] [address] MENUEZ, CYRUS Unavailable [address] + [place] [address] [facility] Unavailable [address] + [place] [address] MENUEZ, CYRUS Unavailable [address] + [place] [address] [facility] Unavailable [address] + [place] [address] MENUEZ, CYRUS Unavailable [address] + [place] [address] [facility] Unavailable [address] + [place] [address] MENUEZ, CYRUS Unavailable [address] + [place] [address] [facility] Unavailable [address] + [place] [address] MENUEZ, CYRUS Unavailable [address] + [place] [address] [facility] Unavailable [address] + [place] [address] MENUEZ, CYRUS Unavailable [address] + [place] [address] [facility] Unavailable [address] + [place] [address] MENUEZ, CYRUS Unavailable [address] + [place] [address] [facility] Unavailable [address] + [place] [address] MENUEZ, CYRUS Unavailable [address] + [place] [address] [facility] Unavailable [address] + [place] [address] MENUEZ, CYRUS Unavailable [address] + [place] [address] [facility] Unavailable [address] + [place] [address] MENUEZ, CYRUS Unavailable [address] + [place] [address] [facility] Unavailable [address] + [place] [address] Care Team Providers Name Role Phone Elenideny Yared Attending Unavailable Vellanki, Joceline Attending Unavailable Vellanki, Joceline Referring Unavailable [facility], Ashli Primary Care Unavailable Vellanki, Joceline Attending Unavailable Vellanki, Joceline Referring Unavailable Td, Willi Primary Care Unavailable Vellanki, Joceline Attending Unavailable Vellanki, Joceline Referring Unavailable Td, Willi Primary Care Unavailable MelanickJeannine CERTIFIED HISTOLOGIC TECHNICIAN-C Attending Unavailable OpsitnickJeannine CERTIFIED HISTOLOGIC TECHNICIAN-C Referring Unavailable Td, Willi Primary Care Unavailable Vellanki, Joceline Attending Unavailable Vellanki, Joceline Referring Unavailable Td, Willi Primary Care Unavailable Vellanki, Joceline Attending Unavailable Vellanki, Joceline Referring Unavailable Td, Willi Primary Care Unavailable ASSESSMENT, HEALTH RISK Attending Unavailable ASSESSMENT, HEALTH RISK Referring Unavailable Td, Willi Primary Care Unavailable Td, Willi Primary Care Unavailable Danilo Burton Attending Unavailable Cyrus Lord Attending Unavailable Td, Willi [...] Consulting Unavailable Koram, Jaqueline Damaris Consulting Unavailable WaytCyrus Attending Unavailable Td, Willi Referring Unavailable Td, Willi Primary Care Unavailable Kristen Bhardwaj Attending Unavailable Candaceli, Kristen Referring Unavailable Td, Willi Primary Care Unavailable Kristen Bhardwaj Attending Unavailable Td, Willi Referring Unavailable Td, Willi Primary Care Unavailable Zena Bhardwaje Attending Unavailable Chicorelli, Kristen Referring Unavailable Td, [...] ATTENDING STATUS SOURCE 05/12/2018 Unknown 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, Community unspecified with Hospital myopathy / Repository M33.92(ICD-10) 05/12/2018 Unknown Z79.899 - Other long María Joceline Active [place] term (current) drug Community therapy / Hospital Z79.899(ICD-10) Repository 05/12/2018 Unknown M18.11 - Unilateral Vellanmary, Joceline Active [place] primary Community osteoarthritis of Hospital first carpometacarpal Repository joint, right hand / M18.11(ICD-10) 05/12/2018 Unknown K21.0 - JevonlanLing hernandezma Active [place] Gastro-esophageal Community reflux disease with Hospital esophagitis / Repository K21.0(ICD-10) 05/12/2018 Unknown M50.30 - Other Vellanki, Joceline Active [place] cervical disc Community degeneration, Hospital unspecified cervical Repository region / M50.30(ICD-10) 05/12/2018 Unknown M51.37 - Other Vellanki, Joceline Active [place] intervertebral disc Community degeneration, Hospital lumbosacral region / Repository M51.37(ICD-10) 05/04/2018 Unknown Z12.11 - Encounter Yared Carroll Active [place] for screening for Community malignant neoplasm of Hospital colon / Repository Z12.11(ICD-10) 05/04/2018 Unknown D12.0 - Benign CebulYared Active [place] neoplasm of cecum / Community D12.0(ICD-10) Hospital Repository 05/04/2018 Unknown K64.9 - Unspecified Cebul, Yared Active [place] hemorrhoids / Community K64.9(ICD-10) Hospital Repository 05/04/2018 Unknown K57.30 - Cebul, Yared Active [place] Diverticulosis of Community large intestine Hospital without [...] 02/19/2018 Unknown M33.90 - Ashli Perez Active [place] Dermatopolymyositis, Community unspecified, organ Hospital involvement Repository unspecified / M33.90(ICD-10) 02/18/2018 Unknown M17.12 - Unilateral Chicorelli, Active [place] primary [facility] osteoarthritis, left Hospital knee / M17.12(ICD-10) Repository 02/15/2018 Unknown I10 - Essential Joceline Daniel Active [place] (primary) Community hypertension / Hospital I10(ICD-10) Repository 03/19/2018 Unknown Z98.890 - Other Chicorelli, Active [place] specified [facility] postprocedural states Hospital / Z98.890(ICD-10) Repository 12/02/2017 Unknown G89.18 - Other acute Chicorelli, Active [place] postprocedural pain / [facility] G89.18(ICD-10) Hospital Repository 01/05/2018 Unknown M25.562 - Pain in Chicorelli, Active [place] left knee / Kristen [facility] M25.562(ICD-10) Hospital Repository 11/23/2017 Unknown M25.462 - Effusion, Wayt, Cyrus Active [place] left knee / Community M25.462(ICD-10) Hospital Repository 11/23/2017 Unknown S83.242A - Other tear Cyrus Lord Active [place] of medial meniscus, Community current injury, left Hospital knee, initial Repository encounter / S83.242A(ICD-10) 12/18/2017 Unknown Z98.1 - Arthrodesis Opsitnick, Active [place] status / Jeannine CERTIFIED HISTOLOGIC TECHNICIAN-C Community Z98.1(ICD-10) Hospital Repository 07/28/2017 Unknown L21.0 - Seborrhea Vellanki, Joceline Active [place] capitis / [facility] L21.0(ICD-10) Hospital Repository PROCEDURES PROCEDURES No Procedure Records FoundRESULTS RESULTS CBC W/DIFF, AUTOMATED Collected: 05/12/2018 Status: F Source: [place] 10:08 AM [facility] REPOSITORY TYPE CODE TESTS RESULT OUT [...] Lymph 1.17 Performed By: #### L100.0100 #### [facility] [place], [address] COMPREHENSIVE METABOLIC Collected: 05/12/2018 Status: F Source: [place] [facility] 10:08 AM [facility] REPOSITORY TYPE CODE TESTS RESULT OUT [...] 7 Performed By: #### L500.4050, L501.3620 #### [facility] [address] [facility] [place], [address] CPK TOTAL, CREATINE Collected: 05/12/2018 Status: F Source: [place] KINASE 10:08 AM [facility] REPOSITORY TYPE CODE TESTS RESULT OUT OF RANGE REFERENCE UNITS LAB L501.3620 26-192 U/L Normal CPK TOTAL 98 Performed By: #### L500.4050, L501.3620 #### [facility] [address] [place] [place], [address] ALDOLASE Collected: 05/12/2018 Status: F Source: [place] 10:08 AM [facility] REPOSITORY TYPE CODE TESTS RESULT OUT OF RANGE REFERENCE UNITS LAB L3100.7000 3.3-10.3 U/L Normal ALDOLASE 2030 4.3 Result Comment: Performed at: - [facility] [id number] [employer] Manager: Noel Londono PhD, Phone: [phone] Performed By: #### L3100.7000 #### [facility] (refer to report for specific site) refer to report for address and phone number OPERATIVE REPORT - Observed: 04/06/2018 Status: F Source: [place] ENDOSCOPY 7:35 AM [facility] REPOSITORY [facility] Medical Records Department [address] [place] [address] Operative Report - Endoscopy MR#: [id number] Acct: [id number] Name: PETER ZAMUDIOJACQUELYN Chery Rep #: [id number] : 1965 52 From: Yared Carroll MD PCP: Ashli Perez MD Status: [facility] Patient Name: Gabriel Zamudio Procedure Date: [...] 1 week. Procedure Code(s): --- Professional --- 33722, Colonoscopy, flexible; with removal of tumor(s), polyp(s), or other lesion(s) by snare technique Diagnosis Code(s): --- Professional --- Z12.11, Encounter for screening for malignant neoplasm of colon K64.9, Unspecified hemorrhoids D12.0, Benign neoplasm of cecum K57.30, Diverticulosis of large intestine without perforation or abscess without bleeding CPT copyright 2017 [employer]. All rights reserved. The codes documented in this report are preliminary and upon campaign marketing manager review may be revised to meet current compliance requirements. Yared Carroll MD 04/06/2018 7:34:44 AM This report has been signed electronically. Number of Addenda: 0 Note Initiated On: 04/06/2018 7:09 AM 04/06/1834 Date Yared Carroll MD Cosigner Signature: Date (if indicated) CC: Ashli Perez MD; Yared Carroll MD Date Dictated: 04/06/18708 Date Transcribed: Anatomic Pathology Manager: WESLEY Signed OPERATIVE REPORT - Observed: 04/06/2018 Status: F Source: [place] [facility] 7:32 AM [facility] REPOSITORY [facility] Medical Records Department [address] [place] [address] Operative Report - Endoscopy MR#: [id number] Acct: [id number] Name: GARBIEL ZAMUDIO Rep #: [id number] : 1965 52 From: Yared Carroll MD PCP: Ashli Perez MD Status: REG [facility] Patient Name: Gabriel Zamudio Procedure Date: 04/06/2018 [...] 1 week. Procedure Code(s): --- Professional --- 93854, Esophagogastroduodenoscopy, flexible, transoral; with biopsy, single or multiple Diagnosis Code(s): --- Professional --- K44.9, Diaphragmatic hernia without obstruction or gangrene K29.50, Unspecified chronic gastritis without bleeding K21.9, Gastro-esophageal reflux disease without esophagitis CPT copyright 2017 [employer]. All rights reserved. The codes documented in this report are preliminary and upon campaign marketing manager review may be revised to meet current compliance requirements. Yared Carroll MD 04/06/2018 7:31:59 AM This report has been signed electronically. Number of Addenda: 0 Note Initiated On: 04/06/2018 6:55 AM 04/06/18 0732 Date Yared Carroll MD Cosigner Signature: Date (if indicated) CC: Ashli Perez MD; Yared Carroll MD Date Dictated: 04/06/18654 Date Transcribed: Anatomic Pathology Manager: WESLEY Signed EGD (PICK SITE) Observed: 04/06/2018 Status: F Source: [place] 7:00 AM [facility] REPOSITORY Patient: GABRIEL ZAMUDIO : 1965 (52/F) Acct Num: [id number] Phys: Glen STEINER,Yared Unit Num: [id number] Loc: EN Specimen: [id number] Received: 04/06/18922 Spec Type: EGD BIOPSY TISSUES 1 TISSUES: A. Gastric mucous membrane B. Esophageal mucous membrane C. Esophageal mucous membrane D. Cecum, NOS COMMENT A. The results of immunohistochemistry for Helicobacter pylori will be reported separately ([id number]). B. Alcian blue/PAS stain with matched control [...] in one cassette. / SJ:sathya TC:1 CPT: 48363 x4, 04754 HEADER OPERATION: Colonoscopy, EGD ([facility]) PRE-OP DIAGNOSIS: GERD, screening TISSUE SUBMITTED: A [...] on file> Performed By: #### PEGD #### [facility] [address] [place] [address]. [place], [address] IMMUNOHISTOCHEMISTRY Observed: 04/06/2018 Status: F Source: [place] 12:00 AM [facility] REPOSITORY Patient: GABRIEL ZAMUDIO : 1965 (52/F) Acct Num: [id number] Phys: Glen STEINER,Yared Unit Num: [id number] Loc: EN Specimen: [id number] Received: 04/07/18 - 1142 Spec Type: IMMUNO TISSUES 1 TISSUES: A. Stomach, NOS SPECIMEN INFORMATION: Tissue Source: A - Gastric antrum biopsy Clinical Info: GERD Specimen Number: [id number] CPT code: 42712 METHODOLOGY: Deparaffinized sections of prefer/formalin-fixed tissue or [...] developed and their performance characteristics determined by [facility]. They may not have been cleared or approved by the U.S. Food and Drug Administration. The FDA has determined that such clearance or approval is not necessary. INTERPRETATION: A. Gastric antrum, biopsy: Negative for Helicobacter pylori organisms. SJ:sathya 04/08/18 PHYSICIAN AND INSTITUTION [place] [address] Signed Foster Boles MD 04/08/18 <signature on file> Performed By: #### PIMM #### [facility] [address] [place] [address]. [place], [address] SURGERY VISIT REPORT Observed: 03/08/2018 Status: F Source: [place] 5:41 PM [facility] REPOSITORY [facility] [address] [place] [address]. [address] [place] [address] OFFICE VISIT Date of Service: 03/08/18 MR#: [id number] Acct: [id number] Name: GABRIEL ZAMUDIO Rep #: [id number] : 1965 Provider: Yared Carroll MD Age/Sex: 52/F Location: [facility] Status: Signed Intake Vital Signs03/08/18 Height [...] DAILY PRN 11/23/17 [History Confirmed 02/18/18] PFSH Medical History Screening for intestinal cancer (Acute) [...] anal pain. 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 She is maintained on immunosuppressive's methotrexate. The [...] distress Nutritional Appearance: overweight Orientation: alert, awake [facility] Head: normal to inspection Eyes General: [...] with her surgical care. Cc: Dr. Chris Carroll, Nicolle., F.A.C.S. Coding Level of Care Code Off vis,new,level 2 Diagnoses Gastroesophageal reflux disease, esophagitis presence not specified K21.9 Esophagitis presence: esophagitis presence not specified Screening for intestinal cancer Z12.10 03/08/18 1741 <Electronically signed by Yared Carroll MD> Date Yared Carroll MD Cosigner Signature: Date (if applicable) CC: Ashli Perez MD ABDOMEN/PELVIS WITH Observed: 02/19/2018 Status: F Source: [place] CONTRAST 3:33 PM [facility] REPOSITORY [facility] Services [address] [place] [address] Abdomen/Pelvis WITH Contrast MR#: [id number] Acct: [id number] Name: GABRIEL ZAMUDIO Rep #: [id number] : 1965 F 52 From: Cyrus Ortega MD PCP: Ashli Perez MD Status: REG CLI Study: Abdomen/Pelvis WITH Contrast Date of Exam: 02/19/18 Exam# [id number] Ordering Dr: Ashli Perez MD HISTORY: R/o [...] Service support , CC: Ashli Perez MD Anatomic Pathology Manager: Signed CHEST WITH CONTRAST Observed: 02/19/2018 Status: F Source: [place] 3:33 PM [facility] REPOSITORY [facility] Services [address] [place] [address] Chest WITH Contrast MR#: [id number] Acct: [id number] Name: GABRIEL ZAMUDIO Rep #: [id number] : 1965 F 52 From: Cyrus Ortega MD PCP: Ashli Perez MD Status: REG CLI Study: Chest WITH Contrast Date of Exam: 02/19/18 Exam# [id number] Ordering Dr: Ashli Perez MD HISTORY: R/o [...] Service support , CC: Ashli Perez MD Anatomic Pathology Manager: Signed ORTHOPEDIC VISIT Observed: 02/18/2018 Status: F Source: [place] REPORT 10:36 AM [facility] REPOSITORY [facility] Medicine [address] [place] [address] 5 [place] [address] OFFICE VISIT Date of Service: 02/18/18 MR#: [id number] Acct: [id number] Name: GABRIEL ZAMUDIO Rep #: [id number] : 1965 Provider: Kristen Bhardwaj DO Age/Sex: 52/F Location: [facility] Status: Signed Intake Intake Visit Reasons: FU LT LT KNEE SCOPE 12/02/17 Chief Complaint: Left Knee Pain Automation Controls Specialist Required: No Accompanied by: None Is [...] Route Admin Location Lot Number Expiration DateNDC Jump Iron Machine Presser 80 mg Intra-Articularleft knee [id number] 03/20/19 0604-8175-99 [employer] Assessment AND Plan 1. Osteoarthritis of left knee, unspecified osteoarthritis type M17.12 Plan Explained that she is going to have pain for three months post op due to the swelling cycle and OA. We will order a medial warping mill operator brace for her and discussed the risks and benefits of an injection today, patient agrees. Follow up in 3 months if needed or sooner if pain, swelling, numbness or associated symptoms, or concerns develop. All questions answered. Patient in agreement of plan. Orders Orders: Medications Discontinued: Kenalog (triamcinolone acetonide) Vujpxpvl21 mg (2 mL) Intra-Articular ONCE 2 mL 0RF NS nued Reason: Office Medication has been Docu mented as given Coding Level of Care Code Off vis,est,level 3 Diagnoses Osteoarthritis of left knee, unspecified osteoarthritis type M17.12 Osteoarthritis type: unspecified Additional Codes senior visual designer.knee (33436) 02/18/18 1036 <Electronically signed by Kristen Bhardwaj DO> Date Kristen Cisneros Signature: Date (if applicable) CC: CBC W/DIFF, AUTOMATED Collected: 02/15/2018 Status: F Source: [place] 9:48 AM [facility] REPOSITORY TYPE CODE TESTS RESULT OUT [...] Lymph 1.53 Performed By: #### L100.0100 #### [facility] [address] [place], [address] COMPREHENSIVE METABOLIC Collected: 02/15/2018 Status: F Source: [place] TURNER 9:48 AM [facility] REPOSITORY TYPE CODE TESTS RESULT OUT [...] 9 Performed By: #### L500.4050, L501.3620 #### [facility] [address] [place], [address] CPK TOTAL, CREATINE Collected: 02/15/2018 Status: F Source: [place] KINASE 9:48 AM [facility] REPOSITORY TYPE CODE TESTS RESULT OUT OF RANGE REFERENCE UNITS LAB L501.3620 26-192 U/L Normal CPK TOTAL 132 Performed By: #### L500.4050, L501.3620 #### [facility] [address] [place], [place], [address] ALDOLASE Collected: 02/15/2018 Status: F Source: [place] 9:48 AM [facility] REPOSITORY TYPE CODE TESTS RESULT OUT OF RANGE REFERENCE UNITS LAB L3100.7000 3.3-10.3 U/L Normal ALDOLASE 2030 6.9 Result Comment: Performed at: - [facility] [id number] [employer] Manager: Noel Londono PhD, Phone: [phone] Performed By: #### L3100.7000 #### [facility] (refer to report for specific site) refer to report for address and phone number PT D/C SUMMARY (1) Observed: 01/12/2018 Status: F Source: [place] 7:57 AM [facility] REPOSITORY [facility] [place], [place] [address] Fax REHABILITATION SERVICES DISCHARGE SUMMARY MR#: [id number] Acct: [id number] Name: GABRIEL ZAMUDIO Miri Rep #: [id number] : 1965 52 From: Azar Oneil PT, Cert. MDT, OCS Referring DrJesse: Kristen Bhardwaj DO Status: REG RCR Insurance: [facility] SELF PAY INSURANCE HP - PT D/C Summary It has been my pleasure to treat GABRIEL ZAMUDIO under orders from Kristen Bhardwaj DO, for the diagnosis of LEFT MENISCUS REPAIR for a total of 10 visit(s). Discharge Date: 01/08/18 Please see the following information for a summary of their discharge status. - Subjective Subjective: Doing well ,.Seen happy with progress D/C to HEP is okay plan to workout at [facility]. RTW thursday. - Pain Left Knee Pain [...] please feel free to call me at [phone]. Thank you for the referral of this patient. Sincerely, Azar Oneil PT, <Electronically signed by Azar Oneil PT, Cert. MDT, OCS> 01/12/18 0757 CC: Willi Bhardwaj DO ABDI Signed ORTHOPEDIC VISIT Observed: 01/05/2018 Status: F Source: [place] REPORT 3:04 PM [facility] Medicine [address] [place] [address] OFFICE VISIT Date of Service: 01/05/18 MR#: [id number] Acct: [id number] Name: PETER ZAMUDIOJACQUELYN Chery Rep #: [id number] : 1965 Provider: Kristen Bhardwaj DO Age/Sex: 52/F Location: [facility] Status: Signed Intake Intake Visit Reasons: LEFT [...] 11/23/17 [History Confirmed 12/28/17] Hydrocodone Bitart/Apap 5-325 [Casselberry 5MG-325MG] 1 - 2 tab PO Q6H [...] Status: F Source: [place] REPORT 10:22 AM [facility] [address] [place] [address] OFFICE VISIT Date of Service: 12/15/17 MR#: [id number] Acct: [id number] Name: GABRIEL ZAMUDIO Miri Rep #: [id number] : 1965 Provider: Kristen Bhardwaj DO Age/Sex: 52/F Location: [facility] Status: Signed Intake Intake Visit Reasons: LEFT [...] 11/23/17 [History Confirmed 12/28/17] Hydrocodone Bitart/Apap 5-325 [Casselberry 5MG-325MG] 1 - 2 tab PO Q6H [...] (1) Observed: 12/24/2017 Status: F Source: [place] Gregg PT 1:29 PM [facility] REPOSITORY [facility] [address] [place] [address]. [address] [place], [place] [address] Fax REHABILITATION SERVICES INITIAL EVALUATION MR#: [id number] Acct: [id number] Name: GABRIEL ZAMUDIO Rep #: [id number] : 1965 52 From: Azar Oneil PT, Cert. MDT, OCS Referring Dr.: Kristen Bhardwaj DO Status: REG RCR Insurance: [facility] travelmob [facility] SERVICES SELF PAY INSURANCE Patient's Visit Information GABRIEL ZAMUDIO is a 52 year old F referred to Physical Therapy by Kristen Bhardwaj DO with a diagnosis of LEFT MENISCUS REPAIR. Date of Evaluation: 12/18/17 Physical Therapist: Azar Oneil PT, - Visit Plan Frequency: 3x /Week Duration: 8WEEKS Plan: S/P LEFT LATERAL MENISCUS REPAIR 12/02/17 S/P 3WEEKS SEPT 5. WBAT KNEE LOCKED IN EXTENSION WITH GAIT. SEE PROTROL GUIDLINES FOR PROGRESSION - Subjective Subjective: This 52 y/o female presents to physical therapy presents to physical therapy left lateral meniscus repair 12/02/[address] Mckenzie at [facility]. Patient noticed pain in when changing sheet in [facility] noticed twinge October 20. Then 4 weeks [...] unable to return to job demands. VOCATION: [employer]. SOCIAL: - Pain Left Knee Pain Intensity [...] to be FAXED BACK to us at [phone] for Medicare purposes. Please let me know if there are questions or concerns regarding this plan of care. Physician Signature: Date: <Electronically signed by Azar Oneil PT Cert. ANGE, SHELLY> 12/24/17 1329 CC: Willi Bhardwaj DO ABDI Signed For Medicare only, by signing this I certify the plan of care. Physicians Signature Date PT D/C SUMMARY (1) Observed: 12/18/2017 Status: F Source: [place] 7:24 AM [facility] REPOSITORY [facility] [address] [place], [place] [address] Fax REHABILITATION SERVICES DISCHARGE SUMMARY MR#: [id number] Acct: [id number] Name: GABRIEL ZAMUDIO Rep #: [id number] : 1965 52 From: Azar Oneil PT, Cert. MDT, OCS Referring Dr.: Jeannine Castillo Status: REG RCR Insurance: [facility] [facility] SELF PAY INSURANCE HP - PT D/C [...] please feel free to call me at [phone]. Thank you for the referral of this patient. Sincerely, Azar Oneil PT, <Electronically signed by Azar Oneil PT, Cert. T, OCS> 12/18/17 0724 CC: Jeannine Appiah JLA Signed OPERATIVE REPORT Observed: 12/10/2017 Status: F Source: [place] 1:35 PM [facility] REPOSITORY [facility] Medical Records Department [address] [place] [address] Operative Report 12/02/17 1313 MR#: [id number] Acct: [id number] Name: GABRIEL ZAMUDIO Rep #: [id number] : 1965 52 From: Kristen Bhardwaj DO PCP: Willi Appiah Status: DEP [facility] [place] Location[place] [facility] Report of Operation Date of Procedure: 12/02/17 [...] Dragon disclaimer This note was generated with MascotaNube dictation software. It may contain incorrect words, spelling, and punctuation that were not noted in checking the note before signing. 12/10/17 6284 <Electronically signed by Kristen Bhardwaj DO> Date Kristen Bhardwaj DO CC: Willi Appiah; Kristen Bhardwaj DO Signed DISCHARGE INSTRUCTION Observed: 12/02/2017 Status: F Source: NADIA 3:25 PM [facility] REPOSITORY [facility] Medical Records Department [address] [place] [address] Instructions for Home/Discharge Instructions 12/02/17 1312 MR#: [id number] Acct: [id number] Name: GABRIEL ZAMUDIO Rep #: [id number] : 1965 52 From: Kristen Bhardwaj DO PCP: Willi Appiah Status: REG SDC ADDENDUM by Kristen Bhardwaj DO on 12/02/17 [...] PO DAILY PRN 11/23/17 Hydrocodone Bitart/Apap 5-325 [Casselberry 5MG-325MG] 1 - 2 tablet PO Q6H PRN PRN 5 Days #40 tablet 12/02/17 The following prescriptions were given: Hydrocodone Bitart/Apap 5-325 [Casselberry 5MG-325MG] 1 - 2 tablet PO Q6H PRN PRN 5 Days #40 tablet PRN Reason: Pain Primary Care Physician: Willi Appiah [Primary Care Provider] - Test Results: Test results from this visit will be discussed in further detail at your follow-up appointment, if applicable. Please Follow Up With: Kristen Bhardwaj DO - [phone] 12/02/17 1313 <Electronically signed by Kristen Bhardwaj DO> Date Kristen Bhardwaj DO CC: Willi Appiah ORTHOPEDIC VISIT Observed: 11/26/2017 Status: F Source: NADIA REPORT 3:10 PM [facility] REPOSITORY [facility] Orthopaedics AND Sports Medicine [address] [place] [address] OFFICE VISIT Date of Service: 11/26/17 MR#: [id number] Acct: [id number] Name: GABRIEL ZAMUDIO Rep #: [id number] : 1965 Provider: HAFSA Lord Age/Sex: 52/F Location: [facility] [place] Status: Signed Intake Intake Visit Reasons: LEFT [...] PO DAILY PRN 11/23/17 [History Confirmed 11/23/17] [facility] Social History Smoking Status: Never smoker HPI [...] DISCHARGE SUMMARY Observed: 11/24/2017 Status: F Source: [place] 5:04 PM [facility] REPOSITORY [facility] Medical Records Department [address] [place] [address] Discharge Summary 11/24/17 1310 MR#: [id number] Acct: [id number] Name: GABRIEL ZAMUDIO Rep #: [id number] : 1965 52 From: Jaqueline Palma MD PCP: Willi Appiah Status: ADM DENA Y Location: [facility] [id number] Discharge Date and Diagnosis - Problem List [...] apply): None applicable Code Visit Inpatient E SANDHYA M: 30046 Disch Hosp 11/24/17 1704 <Electronically signed by Jaqueline Palma MD> Date Jaqueline Palma MD Cosigner Signature (if applicable): Date CC: Willi Appiah; Jaqueline Palma MD; Willi Appiah MD Signed DISCHARGE INSTRUCTION Observed: 11/24/2017 Status: F Source: [place] 1:10 PM [facility] REPOSITORY [facility] Medical Records Department [address] [place] [address] Instructions for Home/Discharge Instructions 11/24/17 1307 MR#: [id number] Acct: [id number] Name: GABRIEL ZAMUDIO Rep #: [id number] : 1965 52 From: Jaqueline Palma MD [...] JOINT ONLY Observed: 11/23/2017 Status: F Source: [place] (ROUTINE) 5:55 PM [facility] REPOSITORY [facility] Imaging Services [address] [place] [address] Lower Ext Joint Only (Routine) MR#: [id number] Acct: [id number] Name: GABRIEL ZAMUDIO Rep #: [id number] : 1965 F 52 From: Demarcus Martinez MD PCP: Willi Appiah Status: ADM DENA Study: Lower Ext Joint Only (Routine) Date of Exam: 11/23/17 Exam# [id number] Ordering Dr: Allen Fernandez DO STUDY: MRI [...] , CC: Willi Appiah; Allen Fernandez DO Anatomic Pathology Manager: Signed HISTORY AND PHYSICAL Observed: 11/23/2017 Status: F Source: [place] EXAM 5:20 PM [facility] REPOSITORY [facility] Medical Records Department [address] [place] [address] History and Physical 11/23/17 1713 MR#: [id number] Acct: [id number] Name: GABRIEL ZAMUDIO Rep #: [id number] : 1965 52 From: Allen Fernandez DO PCP: Willi Appiah Status: ADM DENA Y Location: MS3 [id number] Problem List (1) Left knee pain Status: [...] unable to facilitate a discharge to a correction facility directly from the emergency room. [] Past Medical History Past Medical History (Chronic Problems): Chronic Problems Dermatomyositis (Chronic) Hypertension (Chronic) History of stroke (Chronic) Allergies vancomycin Adverse Reaction (Intermediate, Verified 11/23/17 11:03) RED MAN'S SYNDROME Home Medications: Ambulatory Orders Medication Instructions Recorded Surgical History: cholecystectomy, tonsillectomy Psychiatric History: No pertinent psych hx DESIGNER History: No pertinent DESIGNER history Smoking Status: Never smoker - [...] assistance in regards to disposition to a correction facility. Patient will will be awaiting on precertification for correction facility. Patient is aware that there could be a denial from the insurance company for her to go to a correction facility. * Was going to consult orthopedics [...] Lovenox Code Visit Inpatient E AND M: 81578 Init Hosp L3 11/23/17 1720 <Electronically signed by Allen Fernandez DO> Date Allen Fernandez DO Cosigner Signature: Date (if applicable) CC: Willi Appiah; Allen Fernandez DO; Joceline Daniel MD Signed EMERGENCY DEPARTMENT Observed: 11/23/2017 Status: F Source: [place] SUMMARY 4:46 PM [facility] REPOSITORY [facility] Medical Records Department [address] [place] [address] Emergency Department Summary 11/23/17 1259 MR#: [id number] Acct: [id number] Name: GABRIEL ZAMUDIO Rep #: [id number] : 1965 52 From: Jase Woods MD [...] the patient was okay going to a residential after her stay if need be. She states that she would be okay with this and is trying to figure out where. The patient will be admitted under observation status Date Jase Woods MD cc: Willi Appiah * Signed ADDENDUM by Jase Woods MD on 11/23/17 at 1514 Patient at discharge was unable to walk. [...] meniscal tear This note was generated with MascotaNube dictation software. It may contain incorrect words, [...] problems, contact your Primary Care Provider. Call [facility] ([phone]) or report to the closest Emergency Room. Call 911 if necessary. 11/23/17 1302 <Electronically signed by Jase Woods MD> Date Jase Woods MD Cosigner Signature (If Indicated): Date CC: Willi Appiha KNEE 4 OR MORE Observed: 11/23/2017 Status: F Source: [place] VIEWS 2:12 PM [facility] REPOSITORY [facility] Imaging Services [address] [place] [address] Knee 4 or More Views MR#: [id number] Acct: [id number] Name: GABRIEL ZAMUDIO Rep #: [id number] : 1965 F 52 From: Pineda Meyer MD PCP: Willi Appiah Status: REG ER Study: Knee 4 or More Views Date of Exam: 11/23/17 Exam# [id number] Ordering Dr: Jase Woods MD STUDY: X-RAY [...] , CC: Willi Appiah; Jase Woods MD Anatomic Pathology Manager: Signed ORTHOPEDIC VISIT Observed: 11/23/2017 Status: F Source: NADIA REPORT 2:08 PM [facility] REPOSITORY [facility] Orthopaedics AND Sports Medicine [address] [place] [address] OFFICE VISIT Date of Service: 11/23/17 MR#: [id number] Acct: [id number] Name: GABRIEL ZAMUDIO Rep #: [id number] : 1965 Provider: HAFSA Lord Age/Sex: 52/F Location: [facility] [place] [place] Status: Signed Intake Intake Visit Reasons: LEFT [...] 11/23/17] traZODone [Desyrel] 50 mg PO QHS 12/02/13 [History Confirmed 11/23/17] Esomeprazole Mag Trihydrate [Nexium] 40 mg PO PRN PRN 08/22/14 [History Confirmed 11/23/17] leucovorin tablet 25 mg PO QWEEK 10/24/14 [History Confirmed 11/23/17] Krill Oil/[place]ainbridge-3/Dha/Epa [Fish Oil with Krill Softgel] 1 ea [...] tear of left knee, initial encounter S83.242A Plan After discussing options including down time [...] DISCHARGE INSTRUCTION Observed: 11/23/2017 Status: F Source: NADIA 1:02 PM [facility] RE[facility]ITORY [facility] Medical Records Department [address] [place] [address] [place] [address] Discharge Instruction 11/23/17 1302 MR#: [id number] Acct: [id number] Name: GABRIEL ZAMUDIO Rep #: [id number] : 1965 52 From: Jase Woods MD [...] your Primary Care Provider. Call [facility] ([phone]) or report to the closest Emergency Room. Call 911 if necessary. 11/23/17 1302 <Electronically signed by Jase Woods MD> Date Jase Woods MD Cosigner Signature (If Indicated): Date CC: Willi Appiah SYNOVIAL FLUID RBC, Collected: 11/23/2017 Status: F Source: NADIA WBC AND DIFF 11:59 AM [facility] REPOSITORY TYPE CODE TESTS RESULT OUT [...] Performed By: #### L200.0400, L200.4175, M100.1300 #### [facility] [address] [place], [address] CRYSTALS, BODY FLUID Collected: 11/23/2017 Status: C Source: NADIA 11:59 AM [facility] REPOSITORY TYPE CODE TESTS RESULT OUT OF RANGE REFERENCE UNITS LAB L200.4200 Normal SEE PATH REV CRYSTALS/BF LAB L200.4225 Normal SYNOVIAL SOURCE/BF LAB L200.6020 Normal PATH Reviewed REV Result Comment: Negative for malignant cells. A few non-descript crystals are noted. Foster Boles M.D. 11/24/17 AMENDED REPORT 11/24/17 1025 PATH REV previously reported as: Will follow Performed By: #### L200.0400, L200.4175, M100.1300 #### [facility] [address] [place], [address] Observed: 11/23/2017 Status: F Source: NADIA CULTURE, BODY FLUID 11:59 AM [facility] REPOSITORY List Antibiotics Last 48 Hours? . List Antibiotics to be Started? . Gram Stain Centrifuged Specimen? Culture performed on centrifuged specimen Gram Stain No organisms seen No White Blood Cells Rare Red Blood Cells 4+ Red Cell Stroma Body Fluid Cult NO GROWTH IN 14 DAYS Cult, Anaerobic No growth in 5 days. Performed By: #### L200.0400, L200.4175, M100.1300 #### [facility] [address] [place], [address] EMERGENCY DEPARTMENT Observed: 11/19/2017 Status: F Source: NADIA SUMMARY 10:58 AM [facility] RE[facility]ORY [facility] Department [address] [place] [address] Emergency Department Summary 11/19/17 1055 MR#: [id number] Acct: [id number] Name: GABRIEL ZAMUDIO Rep #: [id number] : 1965 52 From: Danilo Burton PCP: Willi Appiah Status: REG ER - [...] joint effusion] This note was generated with MascotaNube dictation software. It may contain incorrect words, [...] your Primary Care Provider. Call [facility] ([phone]) or report to the closest Emergency Room. Call 911 if necessary. 11/19/171057 <Electronically signed by Danilo Burton DO> Date Danilo Burton DO Cosigner Signature (If Indicated): Date CC: Willi Appiah DISCHARGE INSTRUCTION Observed: 11/19/2017 Status: F Source: NADIA 10:58 AM [facility] REPOSITORY [facility] Medical Records Department [address] [place] [address] Discharge Instruction 11/19/171057 MR#: [id number] Acct: [id number] Name: GABRIEL ZAMUDIO Rep #: [id number] : 1965 52 From: Danilo Burton DO [...] your Primary Care Provider. Call [facility] ([phone]) or report to the closest Emergency Room. Call 911 if necessary. 11/19/17 105 <Electronically signed by Danilo Burton DO> Date Danilo Burton DO Cosigner Signature (If Indicated): Date CC: Willi Appiah LOWER EXT JOINT ONLY Observed: 11/19/2017 Status: F Source: [place] (ROUTINE) 8:37 AM [facility] REPOSITORY [facility] Imaging Services [address] [place] [address] Lower Ext Joint Only (Routine) MR#: [id number] Acct: [id number] Name: GABRIEL ZAMUDIO Rep #: [id number] : 1965 F 52 From: Pineda Meyer MD PCP: Willi Appiah Status: REG ER Study: Lower Ext Joint Only (Routine) Date of Exam: 11/19/17 Exam# [id number] Ordering Dr: Danilo Burton DO STUDY: MRI [...] , CC: Willi Appiah; Danilo Burton DO Anatomic Pathology Manager: Signed URINALYSIS, EMPLOYEE Collected: 10/20/2017 Status: F Source: [place] 7:09 AM [facility] REPOSITORY TYPE CODE TESTS RESULT OUT [...] 25 ESTERASE Performed By: #### L400.0100 #### [facility] [address] [place], [address] CBC, EMPLOYEE Collected: 10/20/2017 Status: F Source: NDAIA 7:09 AM [facility] REPOSITORY TYPE CODE TESTS RESULT OUT [...] Lymph 1.50 Performed By: #### L100.0200 #### [facility] [address] [place], [address] NICOTINE URINE DRUG Collected: 10/20/2017 Status: F Source: NADIA SCREEN 7:09 AM [facility] REPOSITORY TYPE CODE TESTS RESULT OUT [...] of Nicotine. Performed By: #### L505.6240 #### [facility] [address] [place], [address] EMPLOYEE PROFILE Collected: 10/20/2017 Status: F Source: [place] 7:09 AM [facility] REPOSITORY TYPE CODE TESTS RESULT OUT [...] LDH 223 Performed By: #### L500.2900 #### [facility] [address] [place], [address] CBC W/DIFF, AUTOMATED Collected: 10/20/2017 Status: F Source: [place] 7:08 AM [facility] REPOSITORY TYPE CODE TESTS RESULT OUT [...] Lymph 1.63 Performed By: #### L100.0100 #### [facility] [address] [place], [place], [address] COMPREHENSIVE METABOLIC Collected: 10/20/2017 Status: F Source: [facility] 7:08 AM [facility] REPOSITORY TYPE CODE TESTS RESULT OUT [...] 9 Performed By: #### L500.4050, L501.3620 #### [facility] [address] [place], [place], [address] CPK TOTAL, CREATINE Collected: 10/20/2017 Status: F Source: NADIA KINASE 7:08 AM [facility] REPOSITORY TYPE CODE TESTS RESULT OUT OF RANGE REFERENCE UNITS LAB L501.3620 26-192 U/L Normal CPK TOTAL 184 Performed By: #### L500.4050, L501.3620 #### [facility] [address] [place], [address] CANCER ANTIGEN 125 Collected: 10/20/2017 Status: F Source: NADIA 7:08 AM [facility] REPOSITORY TYPE CODE TESTS RESULT OUT OF RANGE REFERENCE UNITS LAB L3100.5000 0.0-38.1 U/mL Normal CA125 14.3 2303 Result Comment: [place] ECLIA methodology Performed By: #### L3100.5000, L3100.7000 #### [facility] (refer to report for specific site) refer to report for address and phone number ALDOLASE Collected: 10/20/2017 Status: F Source: [place] 7:08 AM [facility] REPOSITORY TYPE CODE TESTS RESULT OUT OF RANGE REFERENCE UNITS LAB L3100.7000 3.3-10.3 U/L Normal ALDOLASE 2030 4.4 Result Comment: Performed at: [facility] [id number] [employer] Manager: Noel Londono PhD, Phone: [phone] Performed By: #### L3100.5000, L3100.7000 #### [facility] (refer to report for specific site) refer to report for address and phone number DOWNTIME REPORT Observed: 10/08/2017 Status: F Source: NADIA 11:43 AM [facility] Medical Records Department [address] [place] [address] Downtime Report MR#: [id number] Acct: [id number] Name: GABRIEL ZAMUDIO Rep #: [id number] : 1965 52 From: Greyson Adames PCP: Willi Appiah Status: REG CLI This patient was seen during an EMR downtime September 21, 2017 - September 28, 2017. This patient may have a combination of paper and electronic documentation or all paper documentation. All documentation is viewable within the e-chart portion of [employer] for each patient visit. INITAL EVALUATION (1) Observed: 08/21/2017 Status: F Source: NADIA - PT 2:52 PM [facility] [address] [place] [address]. [address] [place] [address] Fax REHABILITATION SERVICES INITIAL EVALUATION MR#: [id number] Acct: [id number] Name: GABRIEL ZAMUDIO Rep #: [id number] : 1965 51 From: Azar Oneil PT, Cert. MDT, OCS Referring DrJesse: Jeannine Castillo Status: REG RCR Insurance: [facility] SELF PAY INSURANCE Patient's Visit Information [...] fusion with screws /plate done Dr Adames [facility] d/c 08/01/17.Surgery was anterio approah. Intially no [...] ,ADL'S and housework tasks.RTW tenative . VOCATION: [facility] Cat-Scan. SOCAIL: - Pain Bilateral Neck Pain Intensity (Out of 10): 2 Pain Intensity Range: 10 - Objective POSTURE: mild foward head. SKIN: inscion well approximate anterior. NEURO: denies parathesia/tingling, reflexes C5-6-7 2/3. AROM: BUE WFL. MMT: BUE 4/5 except shoulder 4-/5. SENIOR MAINTENANCE MACHINIST STRENGTH: Left 60# ,right 55# dynamator. CERVICAL [...] Postural training, Flexibilty training, Active ROM Comment: HAMZAHE,CERVICAL ROM For the Purpose of:: To decrease [...] to be FAXED BACK to us at [phone] for Medicare purposes. Please let me know if there are questions or concerns regarding this plan of care. Physician Signature: Date: <Electronically signed by Azar Oneil PT, Cert. MDT, OCS> 08/21/17 4465 CC: Jeannine Castillo; Willi Appiah ABDI Signed For Medicare only, by signing this I certify the plan of care. Physicians Signature Date CBC W/DIFF, AUTOMATED Collected: 07/28/2017 Status: F Source: NADIA 10:38 AM [facility] REPOSITORY TYPE CODE TESTS RESULT OUT [...] Lymph 1.30 Performed By: #### L100.0100 #### [facility] [address] [place], [address] COMPREHENSIVE METABOLIC Collected: 07/28/2017 Status: F Source: [facility] 10:38 AM [facility] REPOSITORY TYPE CODE TESTS RESULT OUT [...] 8 Performed By: #### L500.4050, L501.3620 #### [facility] [address] [facility] [address] [address] [place], [place], [address] CPK TOTAL, CREATINE Collected: 07/28/2017 Status: F Source: [place] KINASE 10:38 AM [facility] REPOSITORY TYPE CODE TESTS RESULT OUT OF RANGE REFERENCE UNITS LAB L501.3620 26-192 U/L High CPK TOTAL 201 Performed By: #### L500.4050, L501.3620 #### [facility] [address] [facility] [place], [address] CANCER ANTIGEN 125 Collected: 07/28/2017 Status: F Source: NADIA 10:38 AM [facility] REPOSITORY TYPE CODE TESTS RESULT OUT OF RANGE REFERENCE UNITS LAB L3100.5000 0.0-38.1 U/mL Normal CA125 14.4 2303 Result Comment: [place] ECLIA methodology Performed By: #### L3100.5000, L3100.7000 #### [facility] (refer to report for specific site) refer to report for address and phone number ALDOLASE Collected: 07/28/2017 Status: F Source: NADIA 10:38 AM [facility] REPOSITORY TYPE CODE TESTS RESULT OUT OF RANGE REFERENCE UNITS LAB L3100.7000 3.3-10.3 U/L Normal ALDOLASE 2030 5.7 Result Comment: Performed at: [facility] [id number] [place], [place] [id number] [employer] Manager: Noel Londono PhD, Phone: [phone] Performed By: #### W7008.2288, G3207.0121 #### [facility] (refer to report for specific site) refer to report for address and phone number ALLERGIES ALLERGIES DATE TYPE / CODE NAME / CODE REACTION SEVERITY SOURCE 04/05/2018 Drug vancomycin/F [facility] MO [place] [facility] Allergy/4160 [id number](RX SYNDROME [facility] [address](SNOMED NORM) Repository CT) ENCOUNTERS ENCOUNTERS ADMIT/DISCHARGE ACCOUNT ADMITTING ENCOUNTER LOCATION SOURCE NUMBER CLASS 05/12/2018 [id number] Amb[place] [facility] ing:LAB Repository 04/06/2018/ [id number] Ambulatory BMSBuilding:B [place] 8 1 [facility] Repository 04/06/2018/ [id number] Ambulatory [place] 8 3 [facility] ing:ENRoom: Repository 11 03/25/2018 [id number] Ambulatory [place] 7 [facility] ing:MEDOUTP Repository 03/08/2018/ [id number] Ambulatory BMSBuilding:B [place] 8 2 [place].[facility] Repository 02/19/2018 [id number] Ambulatory [place] 8 [facility] ing:CT Repository 02/18/2018/ [id number] Ambulatory BMSBuilding:B [place] 8 8 [place].[facility] Repository 02/15/2018 [id number] Ambulatory [place] 6 [facility] Hospital ing:LAB Repository 01/08/2018/ [id number] Ambulatory [place] 8 8 [facility] ing:PT Repository 01/05/2018/ [id number] Ambulatory BMSBuilding:B [place] 8 3 [facility] Repository 12/28/2017 [id number] Ambulatory [place] 6 [facility] Hospital ing:MEDOUTP Repository 12/15/2017/ [id number] Ambulatory BMSBuilding:B [place] 8 8 [place].[facility] Repository 12/02/2017/ [id number] Ambulatory [place] 8 9 [facility] ing:SDC Repository 12/02/2017 [id number] Ambulatory BMSBuilding:B [place] 8 [place].[facility] Repository 11/26/2017/ [id number] Ambulatory BMSBuilding:B [place] 8 8 [facility] Repository 11/23/2017/ [id number] Allen Fernandez Ambulatory [place] 8 9 [facility] ing:DV7Ptrm: Repository OG429Eaq: 1 11/23/2017 [id number] Allen Fernandez Ambulatory BMSBuilding:B [place] 2 [facility] Repository 11/23/2017 [id number] Allen Fernandez Ambulatory BMSBuilding:B [place] 6 [facility] Repository 11/23/2017/ [id number] Ambulatory BMSBuilding:B [place] 8 4 [place].[facility] Repository 11/23/2017 [id number] Ambulatory [place] 2 [facility] ing:LABSPEC Repository 11/23/2017/ [id number] Ambulatory BMSBuilding:B [place] 8 0 MS.[facility] Repository 11/19/2017/ [id number] Emergency [place] 8 9 [facility] ing:ED Repository 10/20/2017 [id number] Ambulatory [place] 6 [facility] ing:EMPH Repository 10/20/2017 [id number] Ambulatory [place] 5 [facility] ing:LAB Repository 09/28/2017 [id number] Ambulatory [place] 5 [facility] ing:MEDOUTP Repository 09/15/2017/ [id number] Ambulatory [place]ia Nadia 8 1 [facility] ing:PT Repository 07/28/2017 [id number] Ambulatory [place] 4 [facility] ing:LAB Repository 07/09/2017 [id number] Ambulatory [place] 8 [facility] ing:MEDOUTP Repository PAYERS PAYERS ENCOUNTER GUARANTOR PAYER SUBSCRIBER SOURCE 05/12/2018 GABRIEL Chery Primary Insurance:[facility] GABRIEL Chery [place] [id number] [facility] [id number] [address]Acq: (330) Number: Repository [phone] () [id number] Date:8820-91-40[address] [address], [place] [address]IS: CHECK WEBSITE 05/12/2018 Secondary NOT GIVENUNK [place] Insurance:SELF PAY [facility] Number: Effective Repository Date:2018-05-12 04/06/2018 GABRIEL Chery Primary Insurance:[facility] GABRIEL Chery [place] [id number] [facility] [id number] [address]Iod: (330) Number: Repository [phone] () [id number] Date:6554-02-56[address] [address], [place] [address]IM: CHECK WEBSITE 04/06/2018 Secondary NOT GIVENUNK [place] Insurance:SELF PAY [facility] Number: Effective Repository Date:2018-04-06 04/06/2018 GABRIEL Chery Primary Insurance:[facility] GABRIEL Chery Nadia [id number] [facility] [id number] Hospital 17419Csx: (330) Number: Repository [phone] () [id number] Date:2730-88-38OI [address] [address], [place] [address]IP: CHECK WEBSITE 04/06/2018 Secondary NOT GIVENUNK Nadia Insurance:SELF PAY [facility] Number: Effective Repository Date:2018-03-08 03/25/2018 GABRIEL Chery Primary Insurance:[facility] GABRIEL Chery [place] [id number] [facility] [id number] Hospital 97352Meh: (330) Number: Repository [phone] () [id number] Date:6135-27-45DN [address] [address]BKZNNCJEU, [place] [address]CS: CHECK WEBSITE 03/25/2018 Secondary NOT GIVENUNK [place] Insurance:SELF PAY [facility] Number: Effective Repository Date:2018-01-18 03/08/2018 GABRIEL R Primary Insurance:[facility] GABRIEL R Nadia [id number] [facility] [id number] [address]Tel: (330) Number: Repository [phone] () [id number] Date:0770-05-41ZV [address] [address]TYQRDGAGW, [place] [address]VZ: CHECK WEBSITE 03/08/2018 Secondary NOT GIVENUNK Nadia Insurance:SELF PAY [facility] Number: Effective Repository Date:2018-03-08 02/19/2018 GABRIEL R Primary Insurance:[facility] GABRIEL R [place] [id number] [facility] [id number] Hospital [address]18[address]Mgt: (330) Number: Repository [phone] () [id number] Date:8849-04-53DQ [address] [address]VTIPXXKYP, [place] [address]AW: CHECK WEBSITE 02/19/2018 Secondary NOT GIVENUNK Nadia Insurance:SELF PAY [facility] Number: Effective Repository Date:2018-02-12 02/18/2018 GABRIEL R Primary Insurance:[facility] GABRIEL R [id number] [facility] [id number] Hospital [address]Xqg: (330) Number: Repository [phone] () [id number] Date:2565-13-57TG [address] [address]RQQWXUEPX, [place] [address]WB: CHECK WEBSITE 02/18/2018 Secondary NOT GIVENUNK Nadia Insurance:SELF PAY [facility] Number: Effective Repository Date:2018-02-18 02/15/2018 GABRIEL R Primary Insurance:[facility] GABRIEL R [place] [id number] [facility] [id number] Hospital [address]Hvc: (330) Number: Repository [phone] () [id number] Date:0517-06-21OF [address] [address]MCNJSNXVE, [place] [address]WH: CHECK WEBSITE 02/15/2018 Secondary NOT GIVENUNK Nadia Insurance:SELF PAY [facility] Number: Effective Repository Date:2018-02-15 01/08/2018 GABRIEL R Primary Insurance:[facility] GABRIEL Chery Nadia [id number] [facility] [id number] Hospital [address]Nrz: (330) Number: Repository [phone] () [id number] Date:0876-28-60JP [address] [address]MUYBARWKK, [place] [address]VB: CHECK WEBSITE 01/08/2018 Secondary NOT GIVENUNK Nadia Insurance:SELF PAY [facility] Number: Effective Repository Date:2017-12-15 01/05/2018 GABRIEL R Primary Insurance:[facility] GABRIEL Chery [id number] [facility] [id number] Hospital [address]Azc: (330) Number: Repository [phone] () [id number] Date:8095-40-10CF [address] [address]WRJEOSHJH, [place] [address]HU: CHECK WEBSITE 01/05/2018 Secondary NOT GIVENUNK [place] Insurance:SELF PAY [facility] Number: Effective Repository Date:2018-01-05 12/28/2017 GABRIEL R Primary Insurance:[facility] GABRIEL Chery Nadia [id number] [facility]: [facility] [id number] Hospital [address]Fxy: (330) Number: Repository [phone] () [id number] Date:1876-97-17TV [address] [address]VEZYKKQOS, [place] [address]AF: CHECK WEBSITE 12/28/2017 Secondary NOT GIVENUNK Nadia Insurance:SELF PAY [facility] Number: Effective Repository Date:2017-10-28 12/15/2017 GABRIEL R Primary Insurance:[facility] GABRIEL Chery Nadia [id number] [facility] [id number] Hospital 7[address]Kzo: (330) Number: Repository [phone] () [id number] Date:1447-99-01ET [address] [address]LVSHROTKR, [place] [address]YO: CHECK WEBSITE 12/15/2017 Secondary NOT GIVENUNK [place] Insurance:SELF PAY [facility] Number: Effective Repository Date:2017-12-15 12/02/2017 GABRIEL R Primary Insurance:[facility] GABRIEL Chery Nadia [id number] [facility] [id number] Hospital [address]Yer: (330) Number: Repository [phone] () [id number] Date:0631-30-04IV [address] [address]OWMJRGFIM, [place] [address]YG: CHECK WEBSITE 12/02/2017 Secondary NOT GIVENUNK [place] Insurance:SELF PAY [facility] Number: Effective Repository Date:2017-11-26 12/02/2017 GABRIEL R Primary Insurance:[facility] GABRIEL Tolentinooster [id number] [facility]: [facility] [id number] Hospital 29503Hua: (330) Number: Repository [phone] () [id number] Date:1071-26-04JS [address] [address]TRBNWRRHJ, [place] [address]TS: CHECK WEBSITE 12/02/2017 Secondary NOT GIVENUNK Nadia Insurance:SELF PAY [facility] Number: Effective Repository Date:2017-12-02 11/26/2017 GABRIEL R Primary Insurance:[facility] GABRIEL Chery Nadia [id number] [facility]: [facility] [id number] Hospital [address]Fdw: (330) Number: Repository [phone] () [id number] Date:6770-63-59ZL [address] [address]CTSRWAWFL, [place] [address]NN: CHECK WEBSITE 11/26/2017 Secondary NOT GIVENUNK [place] Insurance:SELF PAY [facility] Number: Effective Repository Date:2017-11-26 11/23/2017 GABRIEL R Primary Insurance:[facility] GABRIEL Chery Nadia [id number] [facility] [id number] [address]Tel: (330) Number: Repository [phone] () [id number] Date:6823-24-51JZ [address] [address]MVHMGULGZ, [place] [address]RM: CHECK WEBSITE 11/23/2017 Secondary NOT GIVENUNK [place] Insurance:SELF PAY [facility] Number: Effective Repository Date:2017-11-23 11/23/2017 GABRIEL R Primary Insurance:[facility] GABRIEL R [place] [id number] [facility] [id number] [place] [id number]: (330) Number: Repository [phone] () [id number] Date:2261-47-53ZU [address] [address]FUKMXXFLP, [place] [address]PE: CHECK WEBSITE 11/23/2017 Secondary NOT GIVENUNK Nadia Insurance:SELF PAY [facility] Number: Effective Repository Date:2017-11-23 11/23/2017 GABRIEL R Primary Insurance:[facility] GABRIEL Chery [place] [id number] [facility] [id number] [place] [id number]: (330) Number: Repository [phone] () [id number] Date:9080-39-30RU [address] [address]KUOYEVMTP, [place] [address]VJ: CHECK WEBSITE 11/23/2017 Secondary NOT GIVENUNK Nadia Insurance:SELF PAY [facility] Number: Effective Repository Date:2017-11-23 11/23/2017 GABRIEL R Primary Insurance:[facility] GABRIEL R Nadia [id number] [place], [place] [address]B: [facility] [id number] Hospital [address]Tvp: (330) Number: Repository [phone] () [id number] Date:4863-98-15RA [address] [address]YDFCYNEGD, [place] [address]JM: CHECK WEBSITE 11/23/2017 Secondary NOT GIVENUNK Nadia Insurance:SELF PAY [facility] Number: Effective Repository Date:2017-11-23 11/23/2017 GABRIEL R Primary Insurance:[facility] GABRIEL Chery [place] [id number] [facility] [id number] Hospital 35884Rqc: (330) Number: Repository [phone] () [id number] Date:7175-62-85DP [address] [address]MFSXQWZZP, [place] [address]PW: CHECK WEBSITE 11/23/2017 Secondary NOT GIVENUNK Nadia Insurance:SELF PAY [facility] Number: Effective Repository Date:2017-11-23 11/23/2017 GABRIEL R Primary Insurance:[facility] GABRIEL Chery Nadia [id number] [facility] [id number] Hospital 98063Taq: (330) Number: Repository [phone] () [id number] Date:7987-37-60RP [address] [address]DIVHYROTM, [place] [address]HO: CHECK WEBSITE 11/23/2017 Secondary NOT GIVENUNK Nadia Insurance:SELF PAY [facility] Number: Effective Repository Date:2017-11-23 11/19/2017 GABRIEL R Primary Insurance:[facility] GABRIEL Chery [place] [id number] [facility]: [facility] [id number] Hospital [address]Dqd: (330) Number: Repository [phone] () [id number] Date:6267-50-75GD [address] [address]XRUIVGPTI, [place] [address]AK: CHECK WEBSITE 11/19/2017 Secondary NOT GIVENUNK [place] Insurance:SELF PAY [facility] Number: Effective Repository Date:2017-11-19 10/20/2017 GABRIEL R Primary NOT GIVENUNK [place] [id number] Insurance:SELF PAY [facility] [address]Mry: (330) Number: Effective Repository [phone] () Date:2017-10-20 10/20/2017 GABRIEL R Primary Insurance:[facility] GABRIEL Chery Nadia [id number] [facility] [id number] Hospital [address]Xhd: (330) Number: Repository [phone] () [id number] Date:1306-34-21WJ [address] [address]PSJETQJAO, [place] [address]BR: CHECK WEBSITE 10/20/2017 Secondary NOT GIVENUNK Nadia Insurance:SELF PAY [facility] Number: Effective Repository Date:2017-10-20 09/28/2017 GABRIEL R Primary Insurance:[facility] GABRIEL Chery [place] [id number] [facility]: [facility] [id number] Hospital [address]Sse: (330) Number: Repository [phone] () [id number] Date:6724-62-27JG [address] [address]DYVUHBEEX, [place] [address]QM: CHECK WEBSITE 09/28/2017 Secondary NOT GIVENUNK Nadia Insurance:SELF PAY [facility] Number: Effective Repository Date:2017-07-09 09/15/2017 GABRIEL R Primary Insurance:[facility] GABRIEL Chery Nadia [id number] [facility]: [facility] [id number] Hospital [address]60[address]Kax: (330) Number: Repository [phone] () [id number] Date:8055-19-71TL [address] [address]KYMIBJKYN, [place] [address]EF: CHECK WEBSITE 09/15/2017 Secondary NOT GIVENUNK [place] Insurance:SELF PAY [facility] Number: Effective Repository Date:2017-08-13 07/28/2017 GABRIEL R Primary Insurance:[facility] GABRIEL Zun[address] [id number] [facility] [id number] Hospital 118[address]Dds: (330) Number: Repository [phone] () [id number] Date:4290-84-88RH [address] [address]HBPCYJHCI, [place] [address]KS: CHECK WEBSITE 07/28/2017 Secondary NOT GIVENUNK Nadia Insurance:SELF PAY [facility] Number: Effective Repository Date:2017-07-28 07/09/2017 GABRIEL Chery Primary Insurance:[facility] GABRIEL Chery Nadia [id number] [facility] [id number] Hospital 80244Dez: (330) Number: Repository [phone] () [id number] Date:0489-30-30ZL [address] [address]TNOVZHCVG, [place] [address]JR: CHECK WEBSITE 07/09/2017 Secondary NOT GIVENUNK Nadia Insurance:SELF PAY [facility] Number: Effective Repository Date:2017-06-04
== END ==
PROVIDERS: Family Provider Family Medicine; PCP Family Medicine; Referring Provider Internal Medicine Rheumatology; Visit Provider Internal Medicine Rheumatology
DX: M33.92 Dermatopolymyositis, unspecified with myopathy (principal); M18.11 Unilateral primary osteoarthritis of first carpometacarpal joint, right hand; K21.0 Gastro-esophageal reflux disease with esophagitis; M50.30 Other cervical disc degeneration, unspecified cervical region; M51.37 Other intervertebral disc degeneration, lumbosacral region; I10 Essential (primary) hypertension; Z79.899 Other long term (current) drug therapy
CPT/HCPCS: 36415; 80053; 82085; 82550; 85025

== ENCOUNTER → 2018-06-24 08:51 | Outpatient (CLI) | payer OTHER, SELFPAY ==
[2018-03-25 08:55] VITALS: BMI 34.9
[2018-05-24 10:13] VITALS: BMI 36.1
[2018-06-24 09:15] VITALS: BP 139/88; PULSE 86; RESP 18; TEMP 36.1; O2SAT 99; BMI 36.1
[2018-06-24] MEDS: DiphenhydrAMINE 50 MG/ML Syringe IV (09:25)
[2018-06-24] MEDS: Hydrocortisone Sod Succinate 100 MG/2 ML Vial IV (09:35)
[2018-06-24] MEDS: Immune Globulin 20 gm Premixed Solution IV ×3 (09:59→14:02)
== END ==
PROVIDERS: Family Provider Family Medicine; PCP Family Medicine; Referring Provider Internal Medicine Rheumatology; Visit Provider Internal Medicine Rheumatology
DX: M33.90 Dermatopolymyositis, unspecified, organ involvement unspecified (principal)
CPT/HCPCS: 96365; 96366 ×5; 96375 ×2; J7040; A4216; J1568

== ENCOUNTER → 2018-08-05 16:28 | Outpatient (CLI) | payer OTHER, SELFPAY ==
[2018-06-24 09:15] VITALS: BMI 36.1
[2018-08-05 17:20] LABS: Absolute Lymphocyte Count 1.66 X10^3/ul (0.83-4.51); Absolute Neutrophil Count 5.6 X10^3/uL (2.0-7.7); Basophil# 0.03 X10^3/uL; Basophil% 0.4 % (0-1); Eosinophil# 0.07 X10^3/uL; Eosinophils% 0.9 % (0-5); Lymphocyte # 1.66 X10^3/ul (4.0); Mean Corp Hgb Conc 34.1 g/gl (32-36); Mean Corpuscular Hgb 29.6 pg (27.0-32.0); Mean Corpuscular Volume 86.7 fL (81-99); Mean Platelet Vol. 8.7 fl (6.2-12.0); Monocyte# 0.58 X10^3/uL; Monocyte% 7.3 % (0-10); Neutrophil # 5.56 X10^3/uL (2.7-7.7); Neutrophil % 70.3 % (47-70); Platelet Count 281 K/mm3 (150-450); RBC Distribution Width CV 13.4 % (11.6-14.6); RBC Distribution Width SD 40.9 fl (35.1-43.9); Red Blood Count 4.73 M/mm3 (4.2-5.4); White Blood Count 7.9 K/mm3 (4.4-11.0)
[2018-08-05 17:24] LABS: POSITIVE COUNT NO; POSITIVE DIFFERENTIAL NO; POSITIVE MORPHOLOGY NO
[2018-08-05 17:38] LABS: ALB/GLOB Ratio 1.3 RATIO (0.9-2.4); AST(SGOT) 28 U/L (15-37); Alanine Aminotransfer ALT/SGPT 38 U/L (13-56); Albumin, Serum 4.4 g/dL (3.2-5.0); Alkaline Phosphatase 79 U/L (45-117); Anion Gap 8 (5-15); BUN 21 mg/dL (7-18); BUN/Creat Ratio 21.9 RATIO (10-20); CPK Total, Creatine Kinase 218 U/L (26-192); Calcium,Total 9.2 mg/dL (8.5-10.1); Chloride 102 mmol/L (98-107); Creatinine, Serum 0.96 mg/dL (0.55-1.02); EST Glomerular Filtration Rate 64 mL/min (>60); Est Glom Filt Rate - Afr Amer 78 mL/min (>60); Globulin 3.3 g/dL (2.2-4.2); Glucose 100 mg/dL (74-106); Potassium 3.8 mmol/L (3.5-5.1); Protein, Total 7.7 g/dL (6.4-8.2); Sodium Level 137 mmol/L (136-145)
[2018-08-10 17:59] LABS: Aldolase 6.2 U/L (3.3-10.3)
== END ==
PROVIDERS: Family Provider Family Medicine; PCP Family Medicine; Referring Provider Internal Medicine Rheumatology; Visit Provider Internal Medicine Rheumatology
DX: M33.92 Dermatopolymyositis, unspecified with myopathy (principal); M51.37 Other intervertebral disc degeneration, lumbosacral region; M18.11 Unilateral primary osteoarthritis of first carpometacarpal joint, right hand; K21.0 Gastro-esophageal reflux disease with esophagitis; M50.30 Other cervical disc degeneration, unspecified cervical region; I10 Essential (primary) hypertension; Z79.899 Other long term (current) drug therapy
CPT/HCPCS: 36415; 80053; 82085; 82550; 85025

== ENCOUNTER → 2018-09-20 08:50 | Outpatient (CLI) | payer OTHER, SELFPAY ==
[2018-06-24 09:15] VITALS: BMI 36.1
[2018-09-20 09:16] VITALS: BP 132/74; PULSE 79; RESP 18; TEMP 36.6; O2SAT 100; BMI 33.9
[2018-09-20] MEDS: DiphenhydrAMINE 50 MG/ML Syringe IV (09:23)
[2018-09-20] MEDS: Hydrocortisone Sod Succinate 100 MG/2 ML Vial IV (09:23)
[2018-09-20] MEDS: Immune Globulin 20 gm Premixed Solution IV ×3 (10:14→14:25)
== END ==
PROVIDERS: Family Provider Family Medicine; PCP Family Medicine; Referring Provider Internal Medicine Rheumatology; Visit Provider Internal Medicine Rheumatology
DX: M33.90 Dermatopolymyositis, unspecified, organ involvement unspecified (principal)
CPT/HCPCS: 96365; 96366 ×5; 96375 ×2; J7050; A4216; J1568

== ENCOUNTER → 2018-11-04 09:45 | Outpatient (CLI) | payer OTHER, SELFPAY ==
[2018-09-20 09:16] VITALS: BMI 33.9
[2018-11-04 11:16] LABS: Absolute Lymphocyte Count 1.76 X10^3/uL (0.83-4.51); Absolute Neutrophil Count 4.2 X10^3/uL (2.0-7.7); Basophil# 0.04 X10^3/uL; Basophil% 0.6 % (0-1); Eosinophil# 0.13 X10^3/uL; Hematocrit 41.8 % (37-47); Hemoglobin 14.3 g/dL (12.0-15.0); Lymphocyte # 1.76 X10^3/ul (4.0); Lymphocyte % 26.7 % (19-41); Mean Corp Hgb Conc 34.2 g/dL (32-36); Mean Corpuscular Hgb 30.3 pg (27.0-32.0); Mean Corpuscular Volume 88.6 fL (81-99); Mean Platelet Vol. 8.6 fl (6.2-12.0); Monocyte# 0.46 X10^3/uL; NRBC Flagged by Analyzer 0 % (0-5); Neutrophil # 4.18 X10^3/uL (2.7-7.7); Neutrophil % 63.4 % (47-70); Platelet Count 262 K/mm3 (150-450); RBC Distribution Width CV 12.5 % (11.6-14.6); RBC Distribution Width SD 40.8 fl (35.1-43.9); Red Blood Count 4.72 M/mm3 (4.2-5.4); White Blood Count 6.6 K/mm3 (4.4-11.0)
[2018-11-04 11:30] LABS: ALB/GLOB Ratio 1.1 RATIO (0.9-2.4); AST(SGOT) 20 U/L (15-37); Alanine Aminotransfer ALT/SGPT 37 U/L (13-56); Alkaline Phosphatase 81 U/L (45-117); Anion Gap 5 (5-15); BUN 18 mg/dL (7-18); BUN/Creat Ratio 19.9 RATIO (10-20); CPK Total, Creatine Kinase 127 U/L (26-192); Calcium,Total 9.2 mg/dL (8.5-10.1); Chloride 104 mmol/L (98-107); EST Glomerular Filtration Rate 69 mL/min (>60); Est Glom Filt Rate - Afr Amer 83 mL/min (>60); Globulin 3.6 g/dL (2.2-4.2); Glucose 114 mg/dL (74-106); Potassium 4.1 mmol/L (3.5-5.1); Protein, Total 7.6 g/dL (6.4-8.2); Sodium Level 139 mmol/L (136-145)
[2018-11-06 13:23] LABS: Aldolase 4.8 U/L (3.3-10.3)
== END ==
PROVIDERS: Family Provider Family Medicine; PCP Family Medicine; Referring Provider Internal Medicine Rheumatology; Visit Provider Internal Medicine Rheumatology
DX: M33.92 Dermatopolymyositis, unspecified with myopathy (principal); I10 Essential (primary) hypertension; M51.37 Other intervertebral disc degeneration, lumbosacral region; M50.30 Other cervical disc degeneration, unspecified cervical region; K21.0 Gastro-esophageal reflux disease with esophagitis; M18.11 Unilateral primary osteoarthritis of first carpometacarpal joint, right hand; Z79.899 Other long term (current) drug therapy
CPT/HCPCS: 36415; 80053; 82085; 82550; 85025

== ENCOUNTER → 2018-12-27 08:44 | Outpatient (CLI) | payer OTHER, SELFPAY ==
[2018-09-20 09:16] VITALS: BMI 33.9
[2018-12-27 09:03] VITALS: BP 143/84; PULSE 93; RESP 16; TEMP 36.6; O2SAT 97; BMI 33.9
[2018-12-27] MEDS: Hydrocortisone Sod Succinate 100 MG/2 ML Vial IV (09:06)
[2018-12-27] MEDS: DiphenhydrAMINE 50 MG/ML Syringe IV (09:07)
[2018-12-27] MEDS: Immune Globulin 20 gm Premixed Solution 0.5 BAG IV (09:46)
[2018-12-27] MEDS: Immune Globulin 20 gm Premixed Solution 143 BAG IV ×2 (12:10→13:45)
== END ==
PROVIDERS: Family Provider Family Medicine; PCP Family Medicine; Referring Provider Internal Medicine Rheumatology; Visit Provider Internal Medicine Rheumatology
DX: M33.90 Dermatopolymyositis, unspecified, organ involvement unspecified (principal)
CPT/HCPCS: 96365; 96366 ×5; 96375 ×2; J7050; A4216; J1568

== ENCOUNTER → 2019-01-19 08:49 | Outpatient (CLI) | payer SELFPAY ==
[2018-12-27 09:03] VITALS: BMI 33.9
[2019-01-19 09:25] LABS: Absolute Lymphocyte Count 1.48 X10^3/uL (0.83-4.51); Absolute Neutrophil Count 3.6 X10^3/uL (2.0-7.7); Basophil# 0.03 X10^3/uL; Basophil% 0.5 % (0-1); Eosinophil# 0.11 X10^3/uL; Eosinophils% 1.9 % (0-5); Hematocrit 40.6 % (37-47); Hemoglobin 13.6 g/dL (12.0-15.0); Lymphocyte # 1.48 X10^3/ul (4.0); Lymphocyte % 26.1 % (19-41); Mean Corp Hgb Conc 33.5 g/dL (32-36); Mean Corpuscular Hgb 29.5 pg (27.0-32.0); Mean Corpuscular Volume 88.1 fL (81-99); Mean Platelet Vol. 8.8 fl (6.2-12.0); Monocyte# 0.47 X10^3/uL; Monocyte% 8.3 % (0-10); NRBC Flagged by Analyzer 0 % (0-5); Neutrophil # 3.58 X10^3/uL (2.7-7.7); Platelet Count 266 K/mm3 (150-450); RBC Distribution Width CV 12.4 % (11.6-14.6); RBC Distribution Width SD 39.7 fl (35.1-43.9); Red Blood Count 4.61 M/mm3 (4.2-5.4); White Blood Count 5.7 K/mm3 (4.4-11.0)
[2019-01-19 10:01] LABS: ALB/GLOB Ratio 1.1 RATIO (0.9-2.4); AST(SGOT) 21 U/L (15-37); Alanine Aminotransfer ALT/SGPT 36 U/L (13-56); Albumin, Serum 3.9 g/dL (3.2-5.0); Alkaline Phosphatase 88 U/L (45-117); Anion Gap 3 (5-15); BUN 18 mg/dL (7-18); BUN/Creat Ratio 19.3 RATIO (10-20); CPK Total, Creatine Kinase 121 U/L (26-192); Calcium,Total 9.3 mg/dL (8.5-10.1); Chloride 105 mmol/L (98-107); Creatinine, Serum 0.93 mg/dL (0.55-1.02); EST Glomerular Filtration Rate 66 mL/min (>60); Est Glom Filt Rate - Afr Amer 80 mL/min (>60); Globulin 3.7 g/dL (2.2-4.2); Glucose 121 mg/dL (74-106); Potassium 4.3 mmol/L (3.5-5.1); Protein, Total 7.6 g/dL (6.4-8.2); Sodium Level 139 mmol/L (136-145)
[2019-01-21 11:03] LABS: Aldolase 4.9 U/L (3.3-10.3)
== END ==
PROVIDERS: Family Provider Family Medicine; PCP Family Medicine; Referring Provider Internal Medicine Rheumatology; Visit Provider Internal Medicine Rheumatology
DX: M33.92 Dermatopolymyositis, unspecified with myopathy (principal); Z79.899 Other long term (current) drug therapy; M18.11 Unilateral primary osteoarthritis of first carpometacarpal joint, right hand; K21.0 Gastro-esophageal reflux disease with esophagitis; M50.30 Other cervical disc degeneration, unspecified cervical region; M51.37 Other intervertebral disc degeneration, lumbosacral region; I10 Essential (primary) hypertension
CPT/HCPCS: 36415; 80053; 82085; 82550; 85025